=== PATIENT | male | born 1940 | race Caucasian/White ===

== ENCOUNTER → 2024-05-05 | Outpatient (BNVA) | payer MEDICARE, BC, SELFPAY | END | disposition home or self-care (01) | PROVIDERS: PCP Physician Assistant; Referring Provider Physician Assistant; Visit Provider Urology | DX: C61 Malignant neoplasm of prostate (principal); K58.9 Irritable bowel syndrome, unspecified; N32.81 Overactive bladder; R33.9 Retention of urine, unspecified; N13.30 Unspecified hydronephrosis; I10 Essential (primary) hypertension; E78.00 Pure hypercholesterolemia, unspecified; I48.91 Unspecified atrial fibrillation; Z86.73 Personal history of transient ischemic attack (TIA), and cerebral infarction without residual deficits | CPT/HCPCS: 51702; 81003; 99212; 99213; G0463 ==

== ENCOUNTER → 2024-05-08 | Outpatient (BNVA) | payer MEDICARE, BC, SELFPAY | END | disposition home or self-care (01) | PROVIDERS: PCP Family Medicine; Referring Provider Family Medicine; Visit Provider Urology | DX: C61 Malignant neoplasm of prostate (principal); N32.81 Overactive bladder; Z87.891 Personal history of nicotine dependence; I10 Essential (primary) hypertension; E78.00 Pure hypercholesterolemia, unspecified; I48.91 Unspecified atrial fibrillation; E03.9 Hypothyroidism, unspecified | CPT/HCPCS: 51702; 81003; 96372; 99212; J1580; A9270; G0463 ==

== ENCOUNTER 2024-05-13 08:22 | Emergency (ER) | payer MEDICARE, BC, SELFPAY ==
[2024-05-13 08:27] VITALS: BP 126/72; PULSE 88; RESP 19; TEMP 37; O2SAT 98; BMI 20.3
--- NOTE | 2024-05-13 08:56 | EDNOTE_ITS ---
ED Male Genitalurinary RME/HPI General Chief complaint: General Adult/Misc Complain Stated complaint: CATHETER CLOGGED Time Seen by Provider: 05/13/24 08:23 Arrival date/time: 05/13/24 08:22 RME / HPI RME / HPI Narrative: 83 year old male with history of prostate cancer, s/p brachytherapy treatment 15 years ago in remission, hypertension, AFib, hypothyroidism presents to the ED for complaint of problems with sen catheter. States he has had a small amount of urine in sen bag in the last 24 hours and believes it is clogged. Reportedly had a sen catheter inserted for the first time ~ 10 days ago while here for hematuria. States the sen continuously leaked during that time and pulled it out himself. States he followed up with his urologist Dr. Jean Baptiste 5 days ago Saturday and had the sen catheter reinserted. Denies fevers, chills, sweats, chest pain, shortness of breath, abdominal pain, n/v. Related Data Home Medications ?Medication ?Instructions ?Recorded ?Confirmed rosuvastatin 20 mg tablet (Crestor) 20 mg PO HS #0 tabs 03/31/16 05/08/24 amlodipine 5 mg tablet 5 mg PO PRN PRN Blood Pressure 09/02/18 05/08/24 levothyroxine 88 mcg tablet 88 mcg PO QDAY 09/02/18 05/08/24 apixaban 5 mg tablet (Eliquis) 2.5 mg PO BID 11/11/23 05/08/24 clopidogrel 75 mg tablet 75 mg PO DAILY 03/13/24 05/08/24 dicyclomine 10 mg capsule 10 mg PO BID 03/13/24 05/08/24 Previous Rx's ?Medication ?Instructions ?Recorded levofloxacin 500 mg tablet 500 mg PO QDAY 3 days #3 tabs 05/13/24 Allergies Allergy/AdvReac Type Severity Reaction Status Date / Time No Known Allergies Allergy Verified 05/08/24 08:20 Review of Systems Review of Systems Narrative Review of Systems: GEN: No fever, no chills, no weight loss EYES: No discharge, no visual changes, no pain HEENT: No ear pain, no congestion, no sore throat PULM: No shortness of breath, no cough, no congestion CV: No chest pain, no dyspnea on exertion, no palpitations GI: No nausea, no vomiting, no diarrhea, no pain, no constipation : +clogged sen catheter. No frequency, no urgency and no dysuria MUSC/SKEL No joint pain, no back pain SKIN: No rash PSYCH: No hallucinations, no depression HEME/LYMPH: No easy bleeding or bruising tendencies NEURO: No weakness, no headache Past Medical History Past Medical History NEUROLOGIC: Positive Neurological Disorders and Transient Ischemic Attacks (TIA) CARDIAC: Positive Cardiac Disorders, Atrial Fibrillation, Hypercholesterolemia, Valvular Heart Disease and Hypertension GASTROINTESTINAL: Positive Gastrointestinal Disorders (persistent diarrhea) GENITOURINARY: Positive Genitourinary Disorders (urinary frequency) and Prostate Cancer MUSCULOSKELETAL: Positive Musculoskeletal Disorders, Arthritis and Carpal Tunnel Syndrome (right) ENT: Positive Cataracts (right) ENDOCRINE: Positive Endocrine Disorders and Hypothyroidism OTHER HISTORY: Positive Radiation Therapy (radiation seeds placed for prostate CA 2009), Chicken Pox, Measles, Cancer and Prostate Cancer Surgical History SURGICAL: Positive Cardiac Surgery, Valve Replacement, Transurethral Resection (prostatectomy) and Arthroscopy (right knee) Social History SMOKING STATUS: Never smoker ED Exam Narrative Physical exam: GENERAL APPEARANCE: Well hydrated, well nourished, in no acute distress. VITALS: All vitals were reviewed and the pulse ox is 100% on room air which is normal according to my interpretation. HEENT: Normocephalic, atramatic, EOMI, EACs are patent. There is no bulge or retraction. Throat without erythema or exudate. Moist oromucosa. No jaundice NECK: Supple, no JVD or bruits. CARDIOVASCULAR: Heart regular without S3-S4 or murmur. No rubs or gallops. LUNGS/CHEST: Clear to auscultation bilaterally. No rales, rhonchi, or wheezing. Normal inspection. ABDOMEN: Soft, nontender, with normal bowel sounds. No pulsatile masses. No rebound, rigidity, or guarding. No incarcerated hernia. Normal inspection and palpation. EXTREMITIES: Normal inspection and palpation. No edema, clubbing, or cyanosis. Intact CSM SKIN: Warm and dry without rashes. Normal inspection. MUSCULOSKELETAL: Normal inspection. No gross deformity, full ROM all extremities NEURO: Alert and oriented x3. Cranial nerves II through XII grossly intact. There are no other motor or sensory deficits noted. PSYCHIATRIC: Normal mood and affect. No psychosis Course Quality Measures none Orders Category Date Time Status Sen [Urinary Catheter, Remove] ONCE Care 05/13/24 09:09 Active Sen [Urinary Catheter] QS Care 05/13/24 09:09 Active CBC Stat Lab 05/13/24 09:57 Completed Comprehensive Metabolic Panel Stat Lab 05/13/24 09:57 Completed Partial Thromboplastin Time Stat Lab 05/13/24 09:57 Completed Prothrombin Time with INR Stat Lab 05/13/24 09:57 Completed UA, C/S IF [Urinalysis, C/S if Indicated] Stat Lab 05/13/24 09:33 Completed Urine Culture Stat Lab 05/13/24 09:33 Received Vital Signs Vital signs: Vital Signs Temperature 98.6 F 05/13/24 08:27 Pulse Rate 88 05/13/24 08:27 Respiratory Rate 19 05/13/24 08:27 Blood Pressure 126/72 05/13/24 08:27 Pulse Oximetry (%) 98 05/13/24 08:27 Oxygen Delivery Method Room Air 05/13/24 08:27 Urogenital - Male MDM Narrative MDM Narrative:: IChanel am scribing for and in the presence of Dr. De Luna. The old Esn which is a clot was removed. The brand-new Sen was inserted by the nursing staff and we got about 800 mL of urine coming out. Patient is happy and smiling he said that he is feeling much better and wanted to go home. CBC unremarkable. CMP unremarkable. UA positive for some bacteria. PT and PTT are negative. Patient data External records reviewed:: [facility] previous records (I reviewed outpatient urology clinic notes by Dr. Jean Baptiste on 05/05/2024) Clinical information provided by:: patient Social determinants that could affect healthcare access:: none Patient has the following chronic illnesses:: prostate cancer, s/p brachytherapy treatment 15 years ago in remission, hypertension, AFib, hypothyroidism How is presenting disease/condition affected by chronic disease/condition?: exacerbated by Evaluation data The following diagnostics were reviewed and interpreted by me:: lab results Lab and/or radiology exams considered but not ordered:: None Interpretation Summary: As noted above Medications / Prescriptions Medications or Prescriptions considered but not ordered:: None Medication administrations:: NOne Consultations Consultation(s) initiated? (list below): No Diagnosis Urogenital Male Differential Diagnosis: urinary tract infection, prostatitis, acute retention of urine and other (Sen catheter malfunction) Most likely diagnosis given after review of the tests above:: UTI Encounter for sen replacement Admission Indicated Admission indicated?: not indicated Admission Request Was there a request for admission?: No Disposition Plan Disposition Plan: Discharge Discharge Attestation Discharge Attestation: The patient and all family members were given an opportunity to ask questions and understood the discharge instructions. Discharge instructions specifically effects, indications for sooner follow up or return to the emergency department, and the expected course of current diagnosis. Patient condition: Stable Discharge Plan Plan Patient Disposition: HOME (Self Care) Disposition Comment: Stable to go home Prescriptions/Referrals Prescriptions/Med Rec: New levofloxacin 500 mg tablet 500 mg PO QDAY 3 Days Qty: 3 0RF No Action rosuvastatin [Crestor] 20 MG tablet 20 mg PO HS Qty: 0 amlodipine 5 mg Tablet 5 mg PO PRN PRN (Reason: Blood Pressure) Rx Instructions: If BP is over 140 levothyroxine 88 mcg Tablet 88 mcg PO QDAY clopidogrel 75 mg tablet 75 mg PO DAILY dicyclomine 10 mg capsule 10 mg PO BID Patient Comments: take 1 capsule by mouth twice a day Eliquis 5 mg tablet 2.5 mg PO BID Referrals: Lisa Liu MD [Primary Care Provider] - In 1 week Problem List Clinical Impression: Encounter for Sen catheter replacement, Urinary tract infection in male Patient/Caregiver Discharge Instructions Education Materials: Urinary Tract Infections in Men, ED Sen Catheter, Care Additional Instructions: Antibiotic for urinary tract infection at this prescribed. See your doctor for recheck in 3 days. Return to nearest emergency department if condition worsens or if new symptoms develop. Return to ER [facility] if Sen stopped working. Print Language: Panamanian Stand Alone Forms: Elena Award Info., Patient Portal Info Letter
[2024-05-13 09:44] LABS: Collection Type, Urine Clean Catch
[2024-05-13 09:49] LABS: Amorphous Crystals,Urine Present (Absent); Bacteria,Urine Rare; Bilirubin,Urine Negative (Negative); Blood,Urine 3+ (Negative); Color,Urine Yellow (Lt Yel-Yel); Glucose, Urine Negative (Negative); Ketones,Urine Negative (Negative); Leukocyte Esterase,Urine Positive (Negative); Nitrite,Urine Negative (Negative); Protein,Urine 1+ (Neg - Trace); RBC,Urine 55 /hpf (0-3); Squamous Epithelial Cell,Urine < 1 /hpf (0-5); Urobilinogen,Urine Negative mg/dL (0.0-1.0); WBC,Urine 17 /hpf (0-5)
[2024-05-13 10:05] LABS: Basophils % (Auto) 1 % (0-2.5); Eosinophils # (Auto) 0.1 Thou/mm3 (0.0-0.5); Eosinophils % (Auto) 1 % (0-10); Hematocrit 32.3 % (41.0-53.0); Hemoglobin 10.7 g/dL (13.5-16.0); Immature Granulocytes % (Auto) 0 % (0-0); Immature Granulocytes Auto 0.02 Thou/mm3 (0.00-0.00); Lymphocytes # (Auto) 0.8 Thou/mm3 (1.0-4.8); Lymphocytes % (Auto) 9 % (10-50); Mean Corpuscular HGB Conc 33.1 g/dl (31.0-37.0); Mean Corpuscular Hemoglobin 29.2 pg (25.0-35.0); Mean Corpuscular Volume 88 fL (80-100); Monocytes % (Auto) 12 % (0-12); Neutrophils # (Auto) 6.5 Thou/mm3 (1.8-7.7); Neutrophils % (Auto) 77 % (37-80); Nucleated Red Blood Cell % 0 /100 WBC (0); Platelet Count 176 Thou/mm3 (140-440); Red Blood Count 3.67 Miln/mm3 (4.50-5.90); White Blood Count 8.3 Thou/mm3 (3.8-10.6)
[2024-05-13 10:06] LABS: Clarity,Urine Hazy (Clear/Hazy); Culture Indicated,Urine Yes
[2024-05-13 10:25] LABS: Alanine Aminotransferase 15 U/L (10-49); Albumin/Globulin Ratio 1.7 (1.2-2.2); Alkaline Phosphatase 83 U/L (46-116); Anion Gap 6 (7-16); Aspartate Amino Transferase 25 U/L (0-34); BUN/Creatinine Ratio 18 Ratio (12-20); Bilirubin,Total 1.1 mg/dL (0.3-1.2); Blood Urea Nitrogen 24 mg/dL (9-23); Calcium 9.1 mg/dL (8.3-10.6); Calcium (Corrected) 9.1 mg/dL (8.5-10.1); Carbon Dioxide 27.2 mMol/L (20.0-31.0); Chloride 105 mMol/L (98-107); Creatinine (Component) 1.3 mg/dL (0.6-1.3); Globulin 2.4 gm/dL (2.3-3.5); Glucose 94 mg/dL (74-106); Osmolality,Calculated 279 (275-295); Potassium 3.8 mMol/L (3.4-5.1); Sodium 138 mMol/L (136-145); Total Protein 6.4 gm/dL (5.7-8.2); eGFR 54 See Note
[2024-05-13 10:29] LABS: Partial Thromboplastin Time 27.3 Seconds (22.0-36.0); Prothrombin Time 11.1 Seconds (9.0-12.2)
[2024-05-13 11:32] VITALS: BP 130/68; PULSE 74; RESP 16; TEMP 36.4; O2SAT 100
[2024-05-13 12:41] VITALS: BP 135/79; PULSE 73; RESP 16; TEMP 36.4; O2SAT 100
== END 2024-05-13 12:41 | disposition home or self-care (01) ==
PROVIDERS: Nurse Practitioner Primary Care; Emergency Provider Emergency Medicine; PCP Family Medicine
DX: Z46.6 Encounter for fitting and adjustment of urinary device (principal); N39.0 Urinary tract infection, site not specified
CPT/HCPCS: 51702; 36415; 80053; 81001; 85025; 85610; 85730; 87086; 99283

== ENCOUNTER 2024-05-14 12:52 | Emergency (ER) | payer MEDICARE, BC, SELFPAY ==
--- NOTE | 2024-05-14 13:08 | PC.NURSE ---
Pt. got triaged and asked if it was going to be a long wait. This nurse states that there are quite a few people that signed in so that he might be waiting for a while Pt. states he is going to leave. I advise pt. to wait for a bit but pt. states he does not want to wait. Pt. is A/O x 4 and ambulates with steady gait. Has not been seen by provider.
== END 2024-05-14 13:12 | disposition left against medical advice (07) ==
LOC: SERX 13:19
PROVIDERS: Emergency Provider Emergency Medicine
DX: Z53.21 Procedure and treatment not carried out due to patient leaving prior to being seen by health care provider (principal)

== ENCOUNTER → 2024-05-26 | Outpatient (BNVA) | payer MEDICARE, BC, SELFPAY | END | disposition home or self-care (01) | PROVIDERS: PCP Physician Assistant; Referring Provider Physician Assistant; Visit Provider Urology | DX: N32.89 Other specified disorders of bladder (principal); N21.0 Calculus in bladder; C61 Malignant neoplasm of prostate; I10 Essential (primary) hypertension; E78.00 Pure hypercholesterolemia, unspecified; Z86.73 Personal history of transient ischemic attack (TIA), and cerebral infarction without residual deficits; I48.91 Unspecified atrial fibrillation; E03.9 Hypothyroidism, unspecified | CPT/HCPCS: 52000; 81003; 96372; 99212; A4217; A4649; C1894; J3260; A9270; G0463 ==

== ENCOUNTER → 2024-06-10 | Outpatient (CLI) | payer MEDICARE, BC, SELFPAY ==
--- NOTE | 2024-06-10 15:30 | XR_ITS ---
Examination: Retroperitoneal ultrasound, complete Technique: Multiple high resolution grayscale images of the retroperitoneum obtained, including kidneys and bladder. Exam date and time:June 10, 2024 1534 hours INDICATIONS: CT examination March 13, 2024 bilateral hydronephrosis FINDINGS: Right kidney 13.2 x 9.3 x 9.0 cm renal cortex 1.4 cm Moderate to advanced right hydronephrosis Left kidney 12.5 x 7.6 x 8.1 cm cortex 2.2 cm Moderate to advanced right hydronephrosis Moderate bilateral renal parenchymal scar formation Urinary bladder contracted around a Connolly catheter Significant prostatomegaly 5.2 x 4.1 x 5.5 cm volume 60.9 cc no prostate nodules IMPRESSION: Marked worsening of bilateral hydronephrosis
--- NOTE | 2024-06-18 10:40 | ESOP_ITS ---
RE: SANTIAGO CABRERA : 1940 DATE OF OPERATION: 06/16/2024 CHIEF COMPLAINT: * Prostate cancer status post brachytherapy treatment done by urologist in [place] 15 years ago. * Urinary retention with bilateral hydronephrosis status post placement of Connolly catheter. * The patient had the Connolly catheter with intact balloon and had some blood in the urine. The patient is also on blood thinning medication. Today, he had ultrasound of the kidneys done on 06/10/2024. It is reviewed by me. I called Mr. Cabrera at his home. I discussed the report of the ultrasound and CAT scan. His hydronephrosis is still not decompressed with the indwelling Connolly catheter. I discussed with him placement of bilateral percutaneous nephrostomies and I have contacted Dr. Simeon in radiology department. He will be scheduled for the same. Subsequent to that, I have scheduled him for cystoscopic examination and placement of bilateral ureteral stent if his ureteral orifices are visible endoscopically. His BUN is 14, creatinine is 0.67, GFR is 104. I do not have the report of BUN, creatinine or GFR today. After he had placement of bilateral percutaneous nephrostomy, we will repeat his CMP. The patient will be notified for his percutaneous nephrostomy placement date. DT: 16:01:18 TT: 20:35:00 Ref: [id number] - TID: [id number]
== END | disposition home or self-care (01) ==
LOC: CDIM 15:20
PROVIDERS: Referring Provider Urology; Visit Provider Urology
DX: N13.30 Unspecified hydronephrosis (principal)
CPT/HCPCS: 76770

== ENCOUNTER 2024-08-01 15:25 | Inpatient (IN) | payer MEDICARE, BC, SELFPAY ==
[2024-08-01] VITALS (94 sets, daily range): BP systolic 57–171; BP diastolic 40–128; PULSE 70–148; RESP 15–79; TEMP 36.5–37.4; O2SAT 51–100; BMI 19.5
--- NOTE | 2024-08-01 15:28 | PC.NURSE ---
PT BROUGHT IN BY EMS WITH C/O ALTERED MENTAL STATUS X 1 HOUR, PER EMS PT HAD PACEMAKER PLACED A FEW DAYS AGO. PER EMS PT GCS OF 3. PER EMS PT 02 SATS FOR THEM WERE 59% RA. ROOM AIR SATS AT THIS TIME 79%. PT PLACED ON OXYMASK 15L. PT PLACED ON CC MONITOR, LEFT FACIAL DROOP NOTED. PT NOT RESPONDING TO STERNAL RUB. PT NOT MOVING EXTREMITIES. PT IS BREATHING ON HIS OWN AT THIS TIME, DR WINTERS AT BEDSIDE.
--- NOTE | 2024-08-01 15:33 | PC.NURSE ---
PT TO CT WITH RN AT BEDSIDE
--- NOTE | 2024-08-01 15:34 | EKG_ITS ---
[facility] Test Date: 2024-08-01 Pat Name: SANTIAGO HEADLEY Department: Room: - Gender: Male [employer]: : 1940 Requested By: aDnielito Marie Order Number: [id number] Reading MD: Danielito Marie Measurements Intervals [place] Rate: 112 P: KS: QRS: -75 QRSD: 128 T: 91 QT: 353 QTc: 484 Interpretive Statements ATRIAL FIBRILLATION WITH RAPID VENTRICULAR RESPONSE RIGHT BUNDLE BRANCH BLOCK [120+ ms QRS DURATION, UPRIGHT V1, 40+ ms S IN I/aVL/V4/V5/V6] LEFT ANTERIOR FASCICULAR BLOCK [QRS AXIS <= -45, QR IN I, RS IN II] MARKED ST ELEVATION, CONSIDER ANTERIOR INJURY [MARKED ST ELEVATION W/O NORMALLY INFLECTED T WAVE IN V2-V5] ACUTE NV No previous ECG available for comparison /store/S0/[id number]/[id number].pdf
--- NOTE | 2024-08-01 15:34 | XR_ITS ---
Examination: CT brain head without contrast. 2-D sagittal coronal reconstructions Date and time of exam:August 01, 2024 1539 hrs. Indications: Stroke alert, onset facial droop beginning one hour ago focal neurologic deficit CTDI: vol (mGy):55.2 DLP: (mGycm):1217 Technique: Multiple CT axial sections of the brain have been obtained, 5 mm slice thickness. Contrast has not been administered. 2-D sagittal, coronal reconstructions have been obtained Low dose protocols were performed. One or more of the following dose reduction techniques were used; automated exposure control, adjustment of the mA and/or KV according to patient size, use of iterative reconstruction technique. Findings: No significant ventricular enlargement. 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 No mass effect or midline shift Basal cisterns are not remarkable. Fourth ventricle is midline. Cranial vault intact. Air densities in posterior parietal sulci on the left which may relate to bolus infusion Impression: Negative for acute hemorrhage, mass effect or midline shift
[2024-08-01 15:44] LABS: Basophils # (Auto) 0.1 Thou/mm3 (0.0-0.2); Basophils % (Auto) 0 % (0-2.5); Eosinophils % (Auto) 0 % (0-10); Hematocrit 32.4 % (41.0-53.0); Hemoglobin 10.6 g/dL (13.5-16.0); Immature Granulocytes % (Auto) 1 % (0-0); Immature Granulocytes Auto 0.59 Thou/mm3 (0.00-0.00); Lymphocytes # (Auto) 1.1 Thou/mm3 (1.0-4.8); Lymphocytes % (Auto) 3 % (10-50); Mean Corpuscular HGB Conc 32.7 g/dl (31.0-37.0); Mean Corpuscular Hemoglobin 28.7 pg (25.0-35.0); Mean Corpuscular Volume 88 fL (80-100); Monocytes # (Auto) 2.6 Thou/mm3 (0.0-0.8); Monocytes % (Auto) 6 % (0-12); Neutrophils # (Auto) 37.1 Thou/mm3 (1.8-7.7); Neutrophils % (Auto) 90 % (37-80); Nucleated Red Blood Cell % 0 /100 WBC (0); Platelet Count 320 Thou/mm3 (140-440); Red Blood Count 3.69 Miln/mm3 (4.50-5.90)
[2024-08-01 15:46] LABS: White Blood Count 41.4 Thou/mm3 (3.8-10.6)
--- NOTE | 2024-08-01 15:51 | PC.NURSE ---
PT BACK FROM CT.
--- NOTE | 2024-08-01 15:55 | PC.NURSE ---
Pt. here from home to room 3, pt. had a pacemaker put in Jul 23 per son Abilio, pt. has bilateral nephrostomy tubes placed in [facility] on Jul 25, pt. had a ablation on the , pt. has a sen draining to the a leg bag, states she does not know how long pt. has had a sen cath. states the sen has been there a long time. Pt. has a swollen right ankle with bruising. Dr. Jet Gil on tele monitor talking to Dr. Marie, Dr. Jet Gil states to keep pt. in trendelenburg.
[2024-08-01 15:57] LABS: INR 1.2 (0.9-1.3); Partial Thromboplastin Time 29.1 Seconds (22.0-36.0); Prothrombin Time 13.1 Seconds (9.0-12.2)
[2024-08-01 16:09] LABS: Path Review Blood Smear Sent to Pathologist
--- NOTE | 2024-08-01 16:13 | PRELIM_ITS ---
CT scan of the head without intravenous contrast (axial sections with sagittal and coronal reformats) August 01, 2024 at 1539 hours Clinical history: Focal neuro deficit, stroke suspected , left side weakness. Comparison: None. Findings: There is no evidence of intracranial hemorrhage, mass effect or midline shift. No definitive wedge-shaped acute infarcts are detected. An old lacunar infarct is noted in the head of the right caudate nucleus. There are prominent extraaxial CSF spaces along the frontal convexities bilaterally, likely related to frontal lobe volume loss. There are air loculi in the cortical branches of the left posterior cerebral artery and right anterior cerebral artery, which may be related to bolus infusion. There are periventricular white matter hypodensities, compatible with chronic small vessel ischemia. There is moderate volume loss. There is atheromatous calcification of the intracranial arteries. The calvarium is unremarkable. The mastoid air cells and the visualized paranasal sinuses are clear. Impression: 1. No evidence of acute infarct, intracranial hemorrhage, mass effect or midline shift. If there are persistent clinical symptoms or additional clinical concerns, consider MRI. 2. Chronic small vessel ischemia, old lacunar infarct and volume loss as described. 3. Other findings as described above. Discussion Details: Results verbally communicated to : Dr. Marie at 04:07 PM 08/01/2024 Report Electronically Signed By: Prerna Sandhu 08/01/2024 4:11:35 PM [EST]
--- NOTE | 2024-08-01 16:38 | XR_ITS ---
Examination: AP chest single view Technique one AP portable upright chest single view Indications: Stroke alert, shortness of breath today Findings: Left apical lateral pneumothorax, estimated 30% No shift of the mediastinum or trachea to the right Heart failure pattern with enlarged cardiac contour prominent vascular congestion perihilar basilar edema Small to moderate bilateral pleural effusions Cardiac leads satisfactory position Impression: Left apical lateral pneumothorax, estimated 30%
--- NOTE | 2024-08-01 16:39 | PD.EDADULT ---
ED General RME/HPI General Chief complaint: Altered Mental Status Stated complaint: AMS Time Seen by Provider: 08/01/24 15:33 Arrival date/time: 08/01/24 15:25 RME / HPI RME / HPI narrative: 84-year-old male who had a pacemaker placed to days ago at [facility] who is brought in by EMS for sudden onset of altered mental status, nonverbal, not following commands starting 1 hour prior to advisable. Patient offers no history. : Notes he had a pacemaker placed 2 days ago with a of normal state of health until proxy 1 hour prior to arrival. 1530, on arrival STROKE ALERT: AMS, left-sided deficits, left-sided paralysis, left-sided facial droop, left-sided neglect 1610, STROKE ALERT: leukocytosis of 44,000, lactic acid of 3.0. 1650, HEART ALERT: ST elevations on inferior lateral leads, case and EKG was discussed with Dr. Sandy Banda Related Data Home Medications ?Medication ?Instructions ?Recorded ?Confirmed rosuvastatin 20 mg tablet (Crestor) 20 mg PO HS #0 tabs 03/31/16 05/26/24 amlodipine 5 mg tablet 5 mg PO PRN PRN Blood Pressure 09/02/18 05/26/24 levothyroxine 88 mcg tablet 88 mcg PO QDAY 09/02/18 05/26/24 apixaban 5 mg tablet (Eliquis) 2.5 mg PO BID 11/11/23 05/26/24 clopidogrel 75 mg tablet 75 mg PO DAILY 03/13/24 05/26/24 dicyclomine 10 mg capsule 10 mg PO BID 03/13/24 05/26/24 Allergies Allergy/AdvReac Type Severity Reaction Status Date / Time No Known Allergies Allergy Verified 05/26/24 11:44 Review of Systems Review of Systems ROS Unobtainable: unobtainable due to medical condition ED Exam Narrative Physical exam: GENERAL APPEARANCE: Eyes clenched closed, mouth clenched closed, some increased tone to the right upper and right lower extremity, flaccid on the left upper and left lower extremity with a left facial droop HEENT: NC, AT. MMM. EOMI, clear conjunctiva, no sclericterus NECK: Supple without lymphadenopathy. No stiffness or restricted ROM. HEART: Tachycardic, irregular, normal S1/S1, no m/r/g LUNGS: CTAB, moving air well. No crackles or wheezes are heard. ABDOMEN: Soft, nondistended NEUROLOGICAL: Dense left-sided deficit, Babinski positive on left Course Course Course Narrative: Dr. 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 He also had bilateral nephrostomies placed 1 week ago. All of these procedures were done at [facility]. Quality Measures Suspected type of Stroke: Unknown at this time Last known well (date): 08/01/24 Last known well (time): 14:30 Tenecteplase given: Reason(s) TPA not given: Unable to determine eligibility (Head CT shows air emboli/pneumocephaly) not given stroke Orders Category Date Time Status Bedside Blood Glucose NOW Care 08/01/24 15:[address] Screening NOW Care 08/01/24 17:53 Active [place] NOW Care 08/01/24 15:34 Active Continuous Pulse Oximetry NOW Care 08/01/24 15:34 Completed EKG (ED ONLY) *Do not use* NOW Care 08/01/24 15:34 Completed In and Out Catheter NEEDED Care 08/01/24 15:34 Active Insert IV NOW Care 08/01/24 15:34 Active NIH Stroke Scale now Care 08/01/24 15:34 Active NPO NOW Care 08/01/24 15:34 Active Nurse Swallow Screen x1 Care 08/01/24 15:34 Active Consult to Cardiology Stat Cons 08/01/24 16:32 Ordered Consult to Neurology / Tele-Neurology Routine Cons 08/01/24 15:[address] angio chest Stat Exams 08/01/24 17:[address] angio stroke protocol Stat Exams 08/01/24 15:[address] stroke protocol Stat Exams 08/01/24 15:34 Completed EKG (ED Only) Stat Exams 08/01/24 15:34 Draft XR chest 1V portable Stat Exams 08/01/24 16:38 Completed Blood Culture (Lab) Stat Lab 08/01/24 15:30 Received CBC Stat Lab 08/01/24 15:30 Completed Comprehensive Metabolic Panel Stat Lab 08/01/24 15:30 Completed Lactate (Lactic Acid) Stat Lab 08/01/24 15:30 Results Magnesium Stat Lab 08/01/24 15:30 Completed Partial Thromboplastin Time Stat Lab 08/01/24 15:30 [address] Review Blood Smear Stat Lab 08/01/24 15:30 Completed Procalcitonin Stat Lab 08/01/24 15:30 Completed Prothrombin Time with INR Stat Lab 08/01/24 15:30 Completed Troponin I Stat Lab 08/01/24 15:30 Completed Urinalysis Stat Lab 08/01/24 15:34 Ordered Urine Culture Stat Lab 08/01/24 15:34 Ordered Etomidate Inj [Amidate Inj] Med 08/01/24 15:47 Discontinued 20 mg IVP X1 ONE Ondansetron Inj [Zofran Inj] Med 08/01/24 15:34 Active 4 mg IV Q4HR PRN Piper/Tazo 3.375 gm [Zosyn] Med 08/01/24 16:08 Discontinued 3.375 gm in 50 ml IV X1 Rocuronium Inj [Zemuron Inj] Med 08/01/24 15:47 Discontinued 70 mg IVP X1 ONE Vancomycin Inj 1,000 mg Med 08/01/24 16:08 Discontinued Sodium Chloride 0.9% 250 ml [Ns] 250 ml IV X1 Oxygen Delivery NOW RT 08/01/24 15:34 Active Vital Signs Vital signs: Vital Signs Pulse Oximetry (%) 93 L 08/01/24 15:29 Oxygen Flow Rate 15 08/01/24 15:29 [facility] Patient data External records reviewed:: [facility] previous records (No recent visits) Clinical information provided by:: patient and spouse Social determinants that could affect healthcare access:: none Patient has the following chronic illnesses:: Cardiac disease, atrial fibrillation, aortic stenosis How is presenting disease/condition affected by chronic disease/condition?: exacerbated by Evaluation data The following diagnostics were reviewed and interpreted by me:: lab results, radiology exam(s) and EKG tracing(s) Lab and/or radiology exams considered but not ordered:: None Interpretation Summary: As per narrative. Medications Medications considered but not ordered:: As per narrative Medication administrations:: Medication Administration History Ondansetron HCl (Ondansetron Inj 2 Mg/Ml Inj 2 Ml) 4 mg IV Q4HR PRN PRN Reason: NAUSEA OR VOMITING Stop: 08/31/24 15:33 Discontinued Medications Etomidate (Etomidate Inj 2 Mg/Ml Vial 10 Ml) 20 mg IVP X1 ONE Stop: 08/01/24 15:48 Vancomycin HCl 1,000 mg/ (Sodium Chloride) 250 mls @ 150 mls/hr IV X1 ONE Stop: 08/01/24 17:47 Last Admin: 08/01/24 17:42 Dose: 150 mls/hr Documented By: ED Piperacillin/Tazobactam/Dextrose (Zosyn) 3.375 gm in 50 mls @ 100 mls/hr IV X1 ONE Stop: 08/01/24 16:37 Last Infusion: 08/01/24 17:36 Dose: Infused Documented By: Admin: 08/01/24 16:50 Dose: 100 mls/hr Documented By: ED Rocuronium [place] (Rocuronium Inj 10 Mg/Ml Vial 10 Ml) 70 mg IVP X1 ONE Stop: 08/01/24 15:48 Above Consultations Consultation(s) initiated? (list below): Yes Consultation #1 (Physician, Specialty, Details): Teleneurology, stroke activation, please see consultation note Time: 15:30 Consultation #2 (Physician, Specialty, Details): Cardiology, Dr. Sandy Banda, we reviewed the EKG findings and recomm concern for ST elevations, ends heart alert and transfer to [facility] catheterization needed Time: 16:45 Consultation #3 (Physician, Specialty, Details): Cardiology, Dr. Sandy Banda, reviewed consultation with [facility] (Dr. Acevedo) who declines patient for transfer given that he has a normal left heart catheterization January [address] findings on his EKG which could be consistent with a stroke. He is not a candidate for PCI. Dr. Sandy Banda agrees to consult here in the hospital, recommend starting heparin as he was not anticoagulated in the hospital during his pacemaker/ablation procedures and start his first dose of Eliquis this morning. he recommends starting heparin. Time: 18:35 Diagnosis Differential Diagnosis ED Complaint MDM: CVA, ST elevation [place], sepsis Most likely diagnosis given after review of the tests above:: Air emboli, CVA, ST elevation AZ, sepsis Admission Indicated Admission indicated?: indicated Explain why admission is indicated or not indicated:: Workup in progress Admission Request Was there a request for admission?: No Disposition Plan Disposition Plan: other (specify) (Signed out to oncoming provider pending CT of the chest and) Medical Decision Making MDM Narrative MDM Narrative: Mr. Cabrera is very ill who presents as a stroke alert due to dense left-sided deficits who is also concerning for sepsis and an ST elevation AZ. He has had several procedures and is primarily seen at [facility] where most recently he had bilateral nephrostomies placed, cardiac ablation for atrial fibrillation/flutter, and pacemaker placement within the last 2 weeks. Most recent is a cardiac ablation 2 days ago. Today appears to have a complex spectrum of findings where air emboli is seen on his CT being his most objective findings for peripheral air is noted. He does have intra-axial areas frequently on the right hemisphere which is consistent for his neurologic deficits today. He is responsive on the right, he is speaking to his and is protecting his airway. He does note some mild chest pain with EKG that shows ST elevations in the inferior and the lateral leads. He appears to have two-vessel obstruction. Case was discussed at length with teleneurology and with cardiology and I appreciate their assistance in this very complicated and critical case. Per teleneurology as these appear to be primarily air emboli, is recommending Trendelenburg and no thrombolytics. EKG was reviewed with cardiology and does acknowledge that he does have multivessel ST elevations, particular inferior, also anterior lateral, however he appears to have a catheterization that is negative for coronary artery disease. However given his recent procedures done [facility], air emboli seen on head CT, TAVR also done at [facility], recommends heart alert for ST elevations and transfer to [facility] if catheterization is needed as we do not have catheterization capabilities through the weekend. Case was declined by [facility] who recommends medical management, not a candidate for PCI. Differential Diagnosis Differential Diagnosis: CVA, ST elevation [place], sepsis Lab Data 08/01/24 15:30 08/01/24 15:30 Labs: Lab Results 08/01/24 Range/Units 15:30 WBC 41.4 H* (3.8-10.6) Thou/mm3 RBC 3.69 L (4.50-5.90) Miln/mm3 Hgb 10.6 L (13.5-16.0) g/dL Hct 32.4 L (41.0-53.0) % MCV 88 (80-100) fL MCH 28.7 (25.0-35.0) pg MCHC 32.7 (31.0-37.0) g/dl RDW Std Deviation 46.0 H (35.1-43.9) fL Plt Count 320 (140-440) Thou/mm3 Neut % (Auto) 90 H (37-80) % Lymph % (Auto) 3 L (10-50) % [place] % (Auto) 6 (0-12) % Eos % (Auto) 0 (0-10) % Baso % (Auto) 0 (0-2.5) % Neut # (Auto) 37.1 H (1.8-7.7) Thou/mm3 Lymph # (Auto) 1.1 (1.0-4.8) Thou/mm3 [place]ton # (Auto) 2.6 H (0.0-0.8) Thou/mm3 Eos # (Auto) 0.0 (0.0-0.5) Thou/mm3 Baso # (Auto) 0.1 (0.0-0.2) Thou/mm3 Immature Gran # (Auto) 0.59 H (0.00-0.00) Thou/mm3 Absolute Nucleated RBC 0.00 (0.00-0.00) Thou/mm3 Immature Gran % 1 H (0-0) % Nucleated RBC % 0 (0) /100 WBC Smear Path Review Sent to Pathologist PT 13.1 H (9.0-12.2) Seconds INR 1.2 (0.9-1.3) APTT 29.1 (22.0-36.0) Seconds Sodium 134 L (136-145) mMol/L Potassium 4.1 (3.4-5.1) mMol/L Chloride 99 (98-107) mMol/L Carbon Dioxide 24.0 (20.0-31.0) mMol/L Anion Gap 11 (7-16) BUN 31 H (9-23) mg/dL Creatinine 1.4 H (0.6-1.3) mg/dL Estim Creat Clear Calc Not Performed. eGFR 49 L (60 - ) See Note BUN/Creatinine Ratio 22 H (12-20) Ratio Glucose 138 H (74-106) mg/dL Calculated Osmolality 276 (275-295) Lactic Acid 3.0 H (0.4-2.0) mMol/L Calcium 8.8 (8.3-10.6) mg/dL Corrected Calcium 9.1 (8.5-10.1) mg/dL Magnesium 1.9 (1.6-2.6) mg/dL Total Bilirubin 1.2 (0.3-1.2) mg/dL AST 22 (0-34) U/L ALT 11 (10-49) U/L Alkaline Phosphatase 165 H (46-116) U/L Troponin I 0.416 H* (0.0-0.045) ng/mL Total Protein 6.6 (5.7-8.2) gm/dL Albumin 3.6 (3.4-4.8) gm/dL Globulin 3.0 (2.3-3.5) gm/dL Albumin/Globulin Ratio 1.2 (1.2-2.2) Procalcitonin 1.23 H (0.0-0.49) ng/ml Critical Care Time Critical Care Time Critical Care Time: Yes Total Critical Care Time (min.): 90 Attestation: Excluding billable procedures for the rapid response, analysis, management, treatment, deliberation with specialist, and documentation of at the very possible risk of neurologic, cardiovascular, and cardiopulmonary decompensation and/or Discharge Plan Prescriptions/Referrals Prescriptions/Med Rec: No Action rosuvastatin [Crestor] 20 MG tablet 20 mg PO HS Qty: 0 amlodipine 5 mg Tablet 5 mg PO PRN PRN (Reason: Blood Pressure) Rx Instructions: If BP is over 140 levothyroxine 88 mcg Tablet 88 mcg PO QDAY clopidogrel 75 mg tablet 75 mg PO DAILY dicyclomine 10 mg capsule 10 mg PO BID Patient Comments: take 1 capsule by mouth twice a day Eliquis 5 mg tablet 2.5 mg PO BID Referrals: No Primary/Family,Physician [Primary Care Provider] - In 1 week Problem List Clinical Impression: Acute CVA (cerebrovascular accident), Sepsis, ST elevation (STEMI) myocardial infarction, Pneumothorax Patient/Caregiver Discharge Instructions Print Language: Icelandic
[2024-08-01 16:48] LABS: Alanine Aminotransferase 11 U/L (10-49); Albumin, Serum 3.6 gm/dL (3.4-4.8); Albumin/Globulin Ratio 1.2 (1.2-2.2); Alkaline Phosphatase 165 U/L (46-116); Anion Gap 11 (7-16); Aspartate Amino Transferase 22 U/L (0-34); BUN/Creatinine Ratio 22 Ratio (12-20); Bilirubin,Total 1.2 mg/dL (0.3-1.2); Blood Urea Nitrogen 31 mg/dL (9-23); Calcium 8.8 mg/dL (8.3-10.6); Calcium (Corrected) 9.1 mg/dL (8.5-10.1); Chloride 99 mMol/L (98-107); Creatinine (Component) 1.4 mg/dL (0.6-1.3); Glucose 138 mg/dL (74-106); Magnesium 1.9 mg/dL (1.6-2.6); Osmolality,Calculated 276 (275-295); Potassium 4.1 mMol/L (3.4-5.1); Sodium 134 mMol/L (136-145); Total Protein 6.6 gm/dL (5.7-8.2); eGFR 49 See Note
--- NOTE | 2024-08-01 16:48 | PC.NURSE ---
Heart alert called on pt.
[2024-08-01 16:50] LABS: Troponin I 0.416 ng/mL (0.0-0.045)
[2024-08-01] MEDS: PIPER/TAZO 3.375 GM 3.375 GM/50 ML BAG IV (16:50)
[2024-08-01 17:02] LABS: Procalcitonin 1.23 ng/ml (0.0-0.49)
--- NOTE | 2024-08-01 17:13 | PC.NURSE ---
[facility] contacted, no answer. message left at this time.
--- NOTE | 2024-08-01 17:21 | PC.NURSE ---
[facility] returned call. States they are waiting for the ekg to be faxed over. We will faxed over ekg again.
--- NOTE | 2024-08-01 17:22 | PC.NURSE ---
Pt. talking, GCS 15, strong photonics engineering technician on right hand and weak photonics engineering technician to left hand. Pt. able to raise right leg and raise left leg minimally. Spouse and son Abilio are bedside.
--- NOTE | 2024-08-01 17:22 | PC.NURSE ---
Pt. right nephrostomy tube output is camara yellow, pt. left nephrostomy tube is dark brown in color.
[2024-08-01] MEDS: Vancomycin Inj 1,000 MG in SODIUM CHLORIDE 0.9% 250 ML 250 ML 150 MG IV (17:42)
--- NOTE | 2024-08-01 17:53 | XR_ITS ---
Examination: CTA chest with intravenous contrast 2-D reconstructions 3-D reconstructions, vascular Date and time of exam: August 01, 2024 1006 hrs. Indications: Chest pain shortness of breath today CTDI: vol (mGy) 12.2 DLP: (mGycm) 553 Technique: Multiple axial sections of the thorax have been obtained. 3 mm slice thickness, from below the hemidiaphragms to above the apices of the lungs. Mediastinal and lung density settings have been obtained. 2-D sagittal and coronal reconstructions. 3-D angiographic renderings, 3-D volume renderings, 3D post processing, vascular maximum intensity projections obtained. Contrast administered is 60 cc Isovue-300. Low dose protocols were performed. One or more of the following dose reduction techniques were used; automated exposure control, adjustment of the mA and/or KV according to patient size, use of iterative reconstruction technique. Findings: AP dimension ascending thoracic aorta 3.6 cm Aortic valve replacement No pulmonary artery emboli Mild to moderate enlargement cardiac contour Prominent vascular congestion with septal bilateral pulmonary edema Moderate bilateral pleural effusions with atelectasis in the lower lung zones Left chest tube with minimal 5% left pneumothorax Pericardial effusion up to 10 mm No visualized liver or splenic lesion Cholelithiasis No pancreatic mass Bilateral percutaneous nephrostomies satisfactory position no pneumothorax Impression: Negative for thoracic aortic aneurysm dilatation or dissection Negative for pulmonary artery emboli Moderate CHF Satisfactory expansion left lung
--- NOTE | 2024-08-01 18:18 | PC.NURSE ---
Dr. Banda is bedside talking with pt. and pt.'s spouse, son Abilio.
[2024-08-01 18:59] LABS: Reflex Lactate? Y
--- NOTE | 2024-08-01 19:16 | EDNOTE_ITS ---
Emergency Room Addendum <Celio Lucas - Last Filed: 08/01/24 21:46> Addendum Narrative: 1800 Care assumed from Danielito Jimenez MD (emergency physician). Past medical, surgical, social and family history reviewed. Vitals and home medications reviewed. Results and treatment plan discussed. I will assume the care of the patient at this time and will follow the patient, pending evaluation for STROKE alert, HEART alert and SEPSIS alert. Dr. Banda saw this patient at bedside. Please refer to the emergency department record for history and examination from initial visit. The following addendum documentation note is intended to reflect any pending information, findings, or radiology results not included in the patient?s initial chart. Review of the initial emergency department record by Dr. Marie shows STROKE alert was called at 15:29 and had consult by teleneurology who reported based on the CT these appear to be primarily air emboli and is recommending Trendelenburg and no thrombolytics. Per nurses' notes teleNEURO was called at 15:[address] Marie discussed the case with Dr. Jet Gil. SEPSIS alert was also called at 16:10. Procedures -ED Chest Tube Chest Tube 1: Time Out performed 20:39 Chest Tube Location: left Size of Tube (cm): Chest Tube Prep: Yes betadine prep Local Anesthetic: lidocaine 1% Incision Made With: #10 blade Post Procedure: sutured to skin and sterile dressing applied Tube Drainage: Post Procedure CXR?: Yes Patient Tolerated Procedure: Yes Evaluation data The following diagnostics were reviewed and interpreted by me: radiology exam(s) Interpretation Summary: I personally reviewed the radiology data and agree with the radiologist's interpretation. Examination: AP chest single view Technique one AP portable upright chest single view Indications: Stroke alert, shortness of breath today Findings: Left apical lateral pneumothorax, estimated 30% No shift of the mediastinum or trachea to the right Heart failure pattern with enlarged cardiac contour prominent vascular congestion perihilar basilar edema Small to moderate bilateral pleural effusions Cardiac leads satisfactory position Impression: Left apical lateral pneumothorax, estimated 30% Dictated By: Luis E Thompson MD Critical Care Time Critical Care Time Critical Care Time: Yes Total Critical Care Time (min.): 45 Attestation: The high probability of sudden, clinically significant deterioration in the patient?s condition required the highest level of my preparedness to intervene urgently. ? The services I provided to this patient were to treat and/or prevent clinically significant deterioration. Services included the following: chart data review, reviewing nursing notes and/or old charts, documentation time, loss prevention consultant collaboration regarding findings and treatment options, medication orders and management, direct patient care, vital sign assessments and ordering, interpreting and reviewing diagnostic studies and lab tests. ? Aggregate critical care time includes only time during which I was engaged in work directly related to the patient?s care, as described above, whether at bedside or elsewhere in the Emergency Department. It did not include time spent performing other reported procedures or the services of residents, students, nurses or physician assistants. <Marcelina Bales MD - Last Filed: 08/02/24 06:25> Addendum Narrative: 1800 Care assumed from Danielito Jimenez MD (emergency physician). Past medical, surgical, social and family history reviewed. Vitals and home medications reviewed. Results and treatment plan discussed. I will assume the care of the patient at this time and will follow the patient, pending evaluation for STROKE alert, HEART alert and SEPSIS alert. Dr. Banda saw this patient at bedside. Please refer to the emergency department record for history and examination from initial visit. The following addendum documentation note is intended to reflect any pending information, findings, or radiology results not included in the patient?s initial chart. Review of the initial emergency department record by Dr. Marie shows STROKE alert was called at 15:29 and had consult by teleneurology who reported based on the CT these appear to be primarily air emboli and is recommending Trendelenburg and no thrombolytics. Per nurses' notes teleNEURO was called at 15:[address] Marie discussed the case with Dr. Jet Gil. SEPSIS alert was also called at 16:10. Chest tube was placed by the resident physician, Dr. Savanna Ch. Patient is awake, talking in full sentences, and is answering questions. There is no facial droop. + left-sided weakness noted. Lungs with rhonchi bilaterally. Patient's blood pressure is 90 systolically. After reviewing the chart, the patient is septic with a likely source of multiple existing nephrostomy tube. Repeat CXR shows worsening pneumonia. At 1530, patient had a WBC count of 41k. Patient placed in trendelenburg. Patient had 700mL IVF prior to getting the repeat CXR that was done at 2048: Resolved PTX, +CHF 2210: Patient at CT. Due to being a sepsis alert, he was given 2.5L of IVF. If he remains hypotensive, will start vasopressors. 3: Patient is back from CT. 7: Troponin is now 2.174. Patient is becoming more altered. Dr. Banda, butcher apprentice is now on the phone with Dr. Ch and Ana. After having an extensive conversation with him, he requests Lasix and starting Heparin drip. Feels that the patient's CXR worsened due to the fluids he received. 2349: Dr. Ch spoke with the patient's son [id number], who discussed at length with him regarding the patient's condition. He gave verbal consent to intubate the patient if needed. Patient started on Levophed. 0025: CT abdomen pelvis as below. On exam, patient has fullness at the right perianal extending to the medial area of the scrotum with erythema, but no crepitus, nontender, no discharge. There is penile discharge. Need to consult with [facility] and/or urology for postop complication and postop infection. Spoke with [facility], who declined the patient for transfer due to not having urology until Saturday. 0157: Spoke with [facility]'s transfer center, states they will call me back regarding acceptance. 0500: Dr. Ch, re-evaluation of patient. He continues to be on low dose Levophed 0.35, BP 120/80, O2 98% on 6L, HR 100s. Mentation has been waxing and waning, patient is oriented to self and birthdate. He has a right-deviated gaze and continues to have left-sided upper and lower extremity weakness. V/S: BP- 120/70, HR: 101, O2: 96% on 6L/NC. Patient is able to answer questions, is not mottled. There is more redness to the right scrotal area, no crepitus, and it is not black. Patient is on 0/3mcg Levophed. WBC significantly uptrending at 55k, due to concern for possible source extensive perineal air-containing soft tissue infections patient needs Urology surgical services for source control. 0557: Cinthya Singleton, urologist from [facility] states they do not feel this is a urology problem. Request us to consult with our general surgeon. States we can callback if we need to further consult with them. 0606: Care signed out to Dr. Marie (emergency physician). Past medical, surgical, social and family history reviewed. Vitals and home medications reviewed. Results and treatment plan discussed. They will assume the care of the patient at this time and will follow the patient, pending callback from [facility] for transfer. Evaluation data The following diagnostics were reviewed and interpreted by me: radiology exam(s) Interpretation Summary: I personally reviewed the radiology data and agree with the radiologist's interpretation. AP chest single view Findings: Left apical lateral pneumothorax, estimated 30% No shift of the mediastinum or trachea to the right Heart failure pattern with enlarged cardiac contour prominent vascular congestion perihilar basilar edema Small to moderate bilateral pleural effusions Cardiac leads satisfactory position Impression: Left apical lateral pneumothorax, estimated 30% Dictated By: Luis E Thompson MD Examination: AP chest single view Findings: Interval insertion left chest tube Satisfactory expansion left lung Heart failure pattern again noted Impression: Interval insertion left chest tube with reexpansion left lung Dictated By: Luis E Thompson MD Signed By: <Electronically signed by Luis E Thompson MD in OV> 08/01/24 6330 CTA chest with intravenous contrast Findings: AP dimension ascending thoracic aorta 3.6 cm Aortic valve replacement No pulmonary artery emboli Mild to moderate enlargement cardiac contour Prominent vascular congestion with septal bilateral pulmonary edema Moderate bilateral pleural effusions with atelectasis in the lower lung zones Left chest tube with minimal 5% left pneumothorax Pericardial effusion up to 10 mm No visualized liver or splenic lesion Cholelithiasis No pancreatic mass Bilateral percutaneous nephrostomies satisfactory position no pneumothorax Impression: Negative for thoracic aortic aneurysm dilatation or dissection Negative for pulmonary artery emboli Moderate CHF Satisfactory expansion left lung Dictated By: Luis E Thompson MD Signed By: <Electronically signed by Luis E Thompson MD in OV> 08/01/24 0765 Examination: CT abdomen with intravenous contrast Findings: No focal liver lesions Gallstones No pancreatic or adrenal mass Bilateral percutaneous nephrostomies with no hydronephrosis Large amounts of stool in the rectosigmoid Abdominal aortic calcification no aneurysmal dilatation Prominent rectal wall thickening with marked inflammatory change surrounding the rectum Prostate radiation seeds Marked urinary bladder wall thickening, urinary bladder catheter Extensive perineal air-containing soft tissue infection that extends posteriorly to the posterior skin surface and anteriorly into the scrotum including into the penis No fluid-filled drainable abscess Impression: Cystitis pattern Very marked rectal wall thickening with prominent perirectal inflammatory change, severe proctitis pattern, rectal tumor not excluded Extensive perineal air-containing soft tissue infections as above Air in the common femoral veins, clinical correlation advised Dictated By: Luis E Thompson MD Signed By: <Electronically signed by Luis E Thompson MD in OV> 08/02/24 0003 Critical Care Time Critical Care Time Critical Care Time: Yes Total Critical Care Time (min.): 90 Attestation: The high probability of sudden, clinically significant deterioration in the patient?s condition required the highest level of my preparedness to intervene urgently. ? The services I provided to this patient were to treat and/or prevent clinically significant deterioration. Services included the following: chart data review, reviewing nursing notes and/or old charts, documentation time, loss prevention consultant collaboration regarding findings and treatment options, medication orders and management, direct patient care, vital sign assessments and ordering, interpreting and reviewing diagnostic studies and lab tests. ? Aggregate critical care time includes only time during which I was engaged in work directly related to the patient?s care, as described above, whether at bedside or elsewhere in the Emergency Department. It did not include time spent performing other reported procedures or the services of residents, students, nurses or physician assistants. <Lesley Judge - Last Filed: 08/02/24 06:08> Addendum Narrative: 1800 Care assumed from Danielito Jimenez MD (emergency physician). Past medical, surgical, social and family history reviewed. Vitals and home medications reviewed. Results and treatment plan discussed. I will assume the care of the patient at this time and will follow the patient, pending evaluation for STROKE alert, HEART alert and SEPSIS alert. Dr. Banda saw this patient at bedside. Please refer to the emergency department record for history and examination from initial visit. The following addendum documentation note is intended to reflect any pending information, findings, or radiology results not included in the patient?s initial chart. Review of the initial emergency department record by Dr. Marie shows STROKE alert was called at 15:29 and had consult by teleneurology who reported based on the CT these appear to be primarily air emboli and is recommending Trendelenburg and no thrombolytics. Per nurses' notes teleNEURO was called at 15:[address] Marie discussed the case with Dr. Jet Gil. SEPSIS alert was also called at 16:10. Chest tube was placed by the resident physician, Dr. Savanna Ch. Patient is awake, talking in full sentences, and is answering questions. There is no facial droop. + left-sided weakness noted. Lungs with rhonchi bilaterally. Patient's blood pressure is 90 systolically. After reviewing the chart, the patient is septic with a likely source of multiple existing nephrostomy tube. Repeat CXR shows worsening pneumonia. At 1530, patient had a WBC count of 41k. Patient placed in trendelenburg. Patient had 700mL IVF prior to getting the repeat CXR that was done at 2048: Resolved PTX, +CHF 2210: Patient at CT. Due to being a sepsis alert, he was given 2.5L of IVF. If he remains hypotensive, will start vasopressors. 2223: Patient is back from CT. 7: Troponin is now 2.174. Patient is becoming more altered. reshma Luz ardiologist is now on the phone with Dr. Ch and Ana. After having an extensive conversation with him, he requests Lasix and starting Heparin drip. Feels that the patient's CXR worsened due to the fluids he received. 2349: Dr. Ch spoke with the patient's son [id number], who discussed at length with him regarding the patient's condition. He gave verbal consent to intubate the patient if needed. Patient started on Levophed. 0025: CT abdomen pelvis as below. On exam, patient has fullness at the right perianal extending to the medial area of the scrotum with erythema, but no crepitus, nontender, no discharge. There is penile discharge. Need to consult with [facility] and/or urology for postop complication and postop infection. Spoke with [facility], who declined the patient for transfer due to not having urology until Saturday. 0157: Spoke with [facility]'s transfer center, states they will call me back regarding acceptance. 0500: Dr. Ch, re-evaluation of patient. He continues to be on low dose Levophed 0.35, BP 120/80, O2 98% on 6L, HR 100s. Mentation has been waxing and waning, patient is oriented to self and birthdate. He has a right-deviated gaze and continues to have left-sided upper and lower extremity weakness. V/S: BP- 120/70, HR: 101, O2: 96% on 6L/NC. Patient is able to answer questions, is not mottled. There is more redness to the right scrotal area, no crepitus, and it is not black. Patient is on 0/3mcg Levophed. WBC significantly uptrending at 55k, due to concern for possible source exte nsive perineal air-containing soft tissue infections patient needs Urology surgical services for source control. 0557: Cinthya Singleton, urologist from [facility] states they do not feel this is a urology problem. Request us to consult with our general surgeon. States we can callback if we need to further consult with them. 0606: Care signed out to Dr. Marie (emergency physician). Past medical, surgical, social and family history reviewed. Vitals and home medications reviewed. Results and treatment plan discussed. They will assume the care of the patient at this time and will follow the patient, pending callback from [facility] for transfer. Evaluation data The following diagnostics were reviewed and interpreted by me: radiology exam(s) Interpretation Summary: I personally reviewed the radiology data and agree with the radiologist's interpretation. AP chest single view Findings: Left apical lateral pneumothorax, estimated 30% No shift of the mediastinum or trachea to the right Heart failure pattern with enlarged cardiac contour prominent vascular congestion perihilar basilar edema Small to moderate bilateral pleural effusions Cardiac leads satisfactory position Impression: Left apical lateral pneumothorax, estimated 30% Dictated By: Luis E Thompson MD Examination: AP chest single view Findings: Interval insertion left chest tube Satisfactory expansion left lung Heart failure pattern again noted Impression: Interval insertion left chest tube with reexpansion left lung Dictated By: Luis E Thompson MD Signed By: <Electronically signed by Luis E Thompson MD in OV> 08/01/242219 CTA chest with intravenous contrast Findings: AP dimension ascending thoracic aorta 3.6 cm Aortic valve replacement No pulmonary artery emboli Mild to moderate enlargement cardiac contour Prominent vascular congestion with septal bilateral pulmonary edema Moderate bilateral pleural effusions with atelectasis in the lower lung zones Left chest tube with minimal 5% left pneumothorax Pericardial effusion up to 10 mm No visualized liver or splenic lesion Cholelithiasis No pancreatic mass Bilateral percutaneous nephrostomies satisfactory position no pneumothorax Impression: Negative for thoracic aortic aneurysm dilatation or dissection Negative for pulmonary artery emboli Moderate CHF Satisfactory expansion left lung Dictated By: Luis E Thompson MD Signed By: <Electronically signed by Luis E Thompson MD in OV> 08/01/24 0223 Examination: CT abdomen with intravenous contrast Findings: No focal liver lesions Gallstones No pancreatic or adrenal mass Bilateral percutaneous nephrostomies with no hydronephrosis Large amounts of stool in the rectosigmoid Abdominal aortic calcification no aneurysmal dilatation Prominent rectal wall thickening with marked inflammatory change surrounding the rectum Prostate radiation seeds Marked urinary bladder wall thickening, urinary bladder catheter Extensive perineal air-containing soft tissue infection that extends posteriorly to the posterior skin surface and anteriorly into the scrotum including into the penis No fluid-filled drainable abscess Impression: Cystitis pattern Very marked rectal wall thickening with prominent perirectal inflammatory change, severe proctitis pattern, rectal tumor not excluded Extensive perineal air-containing soft tissue infections as above Air in the common femoral veins, clinical correlation advised Dictated By: Luis E Thompson MD Signed By: <Electronically signed by Luis E Thompson MD in OV> 08/02/24 0003 Critical Care Time Critical Care Time Critical Care Time: Yes Total Critical Care Time (min.): 90 Attestation: The high probability of sudden, clinically significant deterioration in the patient?s condition required the highest level of my preparedness to intervene urgently. ? The services I provided to this patient were to treat and/or prevent clinically significant deterioration. Services included the following: chart data review, reviewing nursing notes and/or old charts, documentation time, loss prevention consultant collaboration regarding findings and treatment options, medication orders and management, direct patient care, vital sign assessments and ordering, interpreting and reviewing diagnostic studies and lab tests. ? Aggregate critical care time includes only time during which I was engaged in work directly related to the patient?s care, as described above, whether at bedside or elsewhere in the Emergency Department. It did not include time spent performing other reported procedures or the services of residents, students, nurses or physician assistants. <Traci Ch MD - Last Filed: 08/02/24 05:38> Addendum Narrative: 1800 Care assumed from Danielito Jimenez MD (emergency physician). Past medical, surgical, social and family history reviewed. Vitals and home medications reviewed. Results and treatment plan discussed. I will assume the care of the patient at this time and will follow the patient, pending evaluation for STROKE alert, HEART alert and SEPSIS alert. Dr. Banda saw this patient at bedside. Please refer to the emergency department record for history and examination from initial visit. The following addendum documentation note is intended to reflect any pending information, findings, or radiology results not included in the patient?s initial chart. Review of the initial emergency department record by Dr. Marie shows STROKE alert was called at 15:29 and had consult by teleneurology who reported based on the CT these appear to be primarily air emboli and is recommending Trendelenburg and no thrombolytics. Per nurses' notes teleNEURO was called at 15:[address] Marie discussed the case with Dr. Jet Gil. SEPSIS alert was also called at 16:10. Chest tube was placed by the resident physician, Dr. Savanna Ch. Patient is awake, talking in full sentences, and is answering questions. There is no facial droop. + left-sided weakness noted. Lungs with rhonchi bilaterally. Patient's blood pressure is 90 systolically. After reviewing the chart, the patient is septic with a likely source of multiple existing nephrostomy tube. Repeat CXR shows worsening pneumonia. At 1530, patient had a WBC count of 41k. Patient placed in trendelenburg. Patient had 700mL IVF prior to getting the repeat CXR that was done at 2048: Resolved PTX, +CHF 2211: Patient at CT. Due to being a sepsis alert, he was given 2.5L of IVF. If he remains hypotensive, will start vasopressors. 2223: Patient is back from CT. 2327: Troponin is now 2.174. Patient is becoming more altered. Dr. Banda, butcher apprentice is now on the phone with Dr. Ch and I. After having an extensive conversation with him, he requests Lasix and starting Heparin drip. Feels that the patient's CXR worsened due to the fluids he received. 2349: Dr. Ch spoke with the patient's son [id number], who discussed at length with him regarding the patient's condition. He gave verbal consent to intubate the patient if needed. Patient started on Levophed. 0025: CT abdomen pelvis as below. On exam, patient has fullness at the right perianal extending to the medial area of the scrotum with erythema, but no crepitus, nontender, no discharge. There is penile discharge. Need to consult with [facility] and/or urology for postop complication and postop infection. Spoke with [facility], who declined the patient for transfer due to not having urology until Saturday. 0157: Spoke with [facility]'s transfer center, states they will call me back regarding acceptance. 0500: Dr. Ch, re-evaluation of patient. He continues to be on low dose Levophed 0.35, BP 120/80, O2 98% on 6L, HR 100s. Mentation has been waxing and waning, patient is oriented to self and birthdate. He has a right-deviated gaze and continues to have left-sided upper and lower extremity weakness. WBC significantly uptrending at 55k, due to concern for possible source extensive perineal air-containing soft tissue infections patient needs Urology surgical services for source control. Evaluation data The following diagnostics were reviewed and interpreted by me: radiology exam(s) Interpretation Summary: I personally reviewed the radiology data and agree with the radiologist's interpretation. AP chest single view Findings: Left apical lateral pneumothorax, estimated 30% No shift of the mediastinum or trachea to the right Heart failure pattern with enlarged cardiac contour prominent vascular congestion perihilar basilar edema Small to moderate bilateral pleural effusions Cardiac leads satisfactory position Impression: Left apical lateral pneumothorax, estimated 30% Dictated By: Luis E Thompson MD Examination: AP chest single view Findings: Interval insertion left chest tube Satisfactory expansion left lung Heart failure pattern again noted Impression: Interval insertion left chest tube with reexpansion left lung Dictated By: Luis E Thompson MD Signed By: <Electronically signed by Luis E Thompson MD in OV> 08/01/24 2220 CTA chest with intravenous contrast Findings: AP dimension ascending thoracic aorta 3.6 cm Aortic valve replacement No pulmonary artery emboli Mild to moderate enlargement cardiac contour Prominent vascular congestion with septal bilateral pulmonary edema Moderate bilateral pleural effusions with atelectasis in the lower lung zones Left chest tube with minimal 5% left pneumothorax Pericardial effusion up to 10 mm No visualized liver or splenic lesion Cholelithiasis No pancreatic mass Bilateral percutaneous nephrostomies satisfactory position no pneumothorax Impression: Negative for thoracic aortic aneurysm dilatation or dissection Negative for pulmonary artery emboli Moderate CHF Satisfactory expansion left lung Dictated By: Luis E Thompson MD Signed By: <Electronically signed by Luis E Thompson MD in OV> 08/01/24 5825 Examination: CT abdomen with intravenous contrast Findings: No focal liver lesions Gallstones No pancreatic or adrenal mass Bilateral percutaneous nephrostomies with no hydronephrosis Large amounts of stool in the rectosigmoid Abdominal aortic calcification no aneurysmal dilatation Prominent rectal wall thickening with marked inflammatory change surrounding the rectum Prostate radiation seeds Marked urinary bladder wall thickening, urinary bladder catheter Extensive perineal air-containing soft tissue infection that extends posteriorly to the posterior skin surface and anteriorly into the scrotum including into the penis No fluid-filled drainable abscess Impression: Cystitis pattern Very marked rectal wall thickening with prominent perirectal inflammatory change, severe proctitis pattern, rectal tumor not excluded Extensive perineal air-containing soft tissue infections as above Air in the common femoral veins, clinical correlation advised Dictated By: Luis E Thompson MD Signed By: <Electronically signed by Luis E Thompson MD in OV> 08/02/24 0003 Critical Care Time Critical Care Time Critical Care Time: Yes Total Critical Care Time (min.): 90 Attestation: The high probability of sudden, clinically significant deterioration in the patient?s condition required the highest level of my preparedness to intervene urgently. ? The services I provided to this patient were to treat and/or prevent clinically significant deterioration. Services included the following: chart data review, reviewing nursing notes and/or old charts, documentation time, loss prevention consultant collaboration regarding findings and treatment options, medication orders and management, direct patient care, vital sign assessments and ordering, interpreting and reviewing diagnostic studies and lab tests. ? Aggregate critical care time includes only time during which I was engaged in work directly related to the patient?s care, as described above, whether at bedside or elsewhere in the Emergency Department. It did not include time spent performing other reported procedures or the services of residents, students, nurses or physician assistants. Attestation <Celio Lucas - Last Filed: 08/01/24 21:46> MD Attestation Scribe Attestation: I, Mckenna Lucas, am scribing for and in the presence of Dr. Bales. Provider Notation: Although this document has been carefully reviewed, there may still be some phonetic and other typographical errors. These errors are purely grammatical due to imperfections in the software program and should not be construed in any way to compromise the substance of the patient's medical care during this visit.
[2024-08-01 19:18] LABS: Lactic Acid, 3 HR 2.3 mMol/L (0.4-2.0)
--- NOTE | 2024-08-01 19:26 | PC.CM ---
1800 I spoke to Servando earlier today and she stated she said patient needs to be transferred to [facility]. She had already started working on the transfer. I started packet and then I received a call from Serv[facility] stating patient was declined for transfer.
--- NOTE | 2024-08-01 19:45 | PC.NURSE ---
Pt states that he is nauseous, however unable to set hium up and pt's neck is stiff, physician aware. Pt remains in [place] and will give IV zofran
[2024-08-01 19:54] LABS: Collection Type, Urine Catheter
[2024-08-01 20:30] LABS: Bacteria,Urine 3+; Bilirubin,Urine Negative (Negative); Blood,Urine 3+ (Negative); Budding Yeast,Urine Present; Clarity,Urine Turbid (Clear/Hazy); Color,Urine Yellow (Lt Yel-Yel); Glucose, Urine Negative (Negative); Ketones,Urine Negative (Negative); Leukocyte Esterase,Urine Positive (Negative); Nitrite,Urine Negative (Negative); PH,Urine 6.5 (5.0-7.0); Protein,Urine 2+ (Neg - Trace); RBC,Urine 182 /hpf (0-3); Specific Gravity,Urine 1.016 (1.001-1.035); Squamous Epithelial Cell,Urine < 1 /hpf (0-5); Urobilinogen,Urine Negative mg/dL (0.0-1.0); WBC,Urine 192 /hpf (0-5)
--- NOTE | 2024-08-01 20:44 | XR_ITS ---
Examination: CT abdomen with intravenous contrast CT pelvis with intravenous contrast 2-D coronal reconstructions 2-D sagittal reconstructions Date and time of exam:August 01, 1999 2510 0 6:00 PM Indications: Sepsis today. CTDI: vol (mGy) 15.2 DLP: (mGycm) 911 Technique: Multiple axial sections of the abdomen and pelvis have been obtained. 64 slice high-resolution scanner used. 3 mm axial sections have been obtained, post intravenous injection 60 cc [id number] 2-D sagittal, coronal reconstructions obtained. Low dose protocols were performed. One or more of the following dose reduction techniques were used; automated exposure control, adjustment of the mA and/or KV according to patient size, use of iterative reconstruction technique. Findings: No focal liver lesions Gallstones No pancreatic or adrenal mass Bilateral percutaneous nephrostomies with no hydronephrosis Large amounts of stool in the rectosigmoid Abdominal aortic calcification no aneurysmal dilatation Prominent rectal wall thickening with marked inflammatory change surrounding the rectum Prostate radiation seeds Marked urinary bladder wall thickening, urinary bladder catheter Extensive perineal air-containing soft tissue infection that extends posteriorly to the posterior skin surface and anteriorly into the scrotum including into the penis No fluid-filled drainable abscess Impression: Cystitis pattern Very marked rectal wall thickening with prominent perirectal inflammatory change, severe proctitis pattern, rectal tumor not excluded Extensive perineal air-containing soft tissue infections as above Air in the common femoral veins, clinical correlation advised
--- NOTE | 2024-08-01 20:49 | XR_ITS ---
Examination: AP chest single view Technique: portable supine chest single view Exam date and time: August 01, [id number] hrs. Comparison August 01, [id number] hrs. Indications: Pneumothorax apicolateral on the left post chest tube placement Findings: Interval insertion left chest tube Satisfactory expansion left lung Heart failure pattern again noted Impression: Interval insertion left chest tube with reexpansion left lung
--- NOTE | 2024-08-01 20:52 | ESCONSULT_ITS ---
Tele Neuro Consultation Consultation Date 08/01/24 Most Recent Vital Signs Last Vital Signs Temp 99.4 F 08/01/24 18:59 Pulse 146 H 08/01/24 20:35 Resp 34 H 08/01/24 20:35 BP 114/52 L 08/01/24 20:35 Pulse Ox 92 L 08/01/24 20:35 O2 Del Method Oxy Mask 08/01/24 18:18 O2 Flow Rate 11 08/01/24 18:18 Laboratory-Coagulation Panel PT 13.1 Seconds (9.0-12.2) H 08/01/24 15:30 INR 1.2 (0.9-1.3) 08/01/24 15:30 APTT 29.1 Seconds (22.0-36.0) 08/01/24 15:30 Consultation Narrative [facility] Tele[facility]urology Consult Services Patient Name:???Jules Cabrera Date of :???1940 Identification Number:??? Date of Service:???08/01/2024 15:30:00 Diagnosis:?I63.89 - Cerebrovascular accident (CVA) due to other mechanism (HCCC) Impression: ?84 year old male presenting following cardiac pacemaker implant with acute cerebral air embolism resulting in altered mental status and left > right sided weakness. Our recommendations are outlined below. Recommendations: ? Neuro Checks ? Bedside Swallow Eval ? DVT Prophylaxis ? IV Fluids, Normal Saline ? Head of Bed 30 Degrees ? Euglycemia and Avoid Hyperthermia (PRN Acetaminophen) ?Continue Trendelenburg positioning and 100% oxygen as tolerated. Further recs and supportive care per primary team. ?MRI brain without contrast when able. Sign Out: ? Discussed with Emergency Department Provider Advanced Imaging: Advanced Imaging Deferred because: Stroke not suspected with clinical presentation and exam Metrics: Last Known Well: 08/01/2024 14:30:00 Dispatch Time: 08/01/2024 15:30:00 Arrival Time: 08/01/2024 15:25:00 Initial Response Time: 08/01/2024 15:36:00Symptoms: altered mental status. Initial patient interaction: 08/01/2024 15:47:00 NIHSS Assessment Completed: 08/01/2024 15:50:00Patient is not a candidate for Thrombolytic. Thrombolytic Medical Decision: 08/01/2024 15:50:00Patient was not deemed geeta te for Thrombolytic because of following reasons: other diagnosis suspected Suspect cerebral air embolism. I personally reviewed the CT Head and it showed gas-density serpiginous foci in the subarachnoid spaces, collecting around the right frontal and left occipital lobes consistent with cerebral air emboli. Primary Provider Notified of Diagnostic Impression and Management Plan on: 08/01/2024 16:20:00 History of Present Illness:Patient is a 84 year old Male. Patient was brought by EMS for symptoms of altered mental status. Patient is an 84 year old male with history of HTN presenting with altered mental status and left facial weakness x 1 hour. Patient comes in following a pacemaker implantation procedure, after which he had altered mental status and left > right sided weakness. Past Medical History: ?Hypertension ?Hyperlipidemia ?Atrial Fibrillation ?Coronary Artery Disease unable to obtain due to:?? Patient Is Obtunded/ Comatose Medications: Anticoagulant use:??Yes?Eliquis No Antiplatelet use Reviewed EMR for current medications Allergies:? Reviewed Allergies Unable To Obtain Due To:?Patient Is Obtunded/ Comatose Social History: Unable To Obtain Due To Patient Status :?Patient Is Obtunded/ Comatose Family History: Family History Cannot Be Obtained Because:Patient Is Obtunded/ Comatose There is no family history of premature cerebrovascular disease pertinent to this consultation ROS :?ROS Cannot Be Obtained Because:? Patient Is Obtunded/ Comatose Past Surgical History: Past Surgical History Cannot Be Obtained Because: Patient Is Obtunded/ Comatose There Is No Surgical History Contributory To Today?s Visit Examination: BP(70/40),?Pulse(114),?Blood Glucose(138) 1A: Level of Consciousness - Alert; keenly responsive?+ 0 1B: Ask Month and Age - Both Questions Right?+ 0 1C: Blink Eyes & Squeeze Hands - Performs Both Tasks?+ 0 2: Test Horizontal Extraocular Movements - Normal?+ 0 3: Test Visual Arora - No Visual Loss?+ 0 4: Test Facial Palsy (Use Grimace if Obtunded) - Normal symmetry?+ 0 5A: Test Left Arm Motor Drift - No Drift for 10 Seconds?+ 0 5B: Test Right Arm Motor Drift - No Drift for 10 Seconds?+ 0 6A: Test Left Leg Motor Drift - No Drift for 5 Seconds?+ 0 6B: Test Right Leg Motor Drift - No Drift for 5 Seconds?+ 0 7: Test Limb Ataxia (FNF/Heel-Garcia) - No Ataxia?+ 0 8: Test Sensation - Normal; No sensory loss?+ 0 9: Test Language/Aphasia - Normal; No aphasia?+ 0 10: Test Dysarthria - Normal?+ 0 11: Test Extinction/Inattention - No abnormality?+ 0 NIHSS Score:?0 Pre-Morbid Modified Rory Scale:Unable to assess Spoke with :?Dr. Marie This consult was conducted in real time using interactive audio and video technology. Patient was informed of the technology being used for this visit and agreed to proceed. Patient located in hospital and provider located at home/office setting. Patient is being evaluated for possible acute neurologic impairment and high probability of imminent or life-threatening deterioration. I spent total of 50 minutes providing care to this patient, including time for face to face visit via telemedicine, review of medical records, imaging studies and discussion of findings with providers, the patient and/or family. Dr Jet Gil [facility] For Inpatient follow-up with [facility] physician please call [facility] at . As we are not an outpatient service for any post hospital discharge needs please contact the hospital for assistance. If you have any questions for the [facility] physicians or need to reconsult for clinical or diagnostic changes please contact us via [facility] at .
--- NOTE | 2024-08-01 21:44 | EDNOTE_ITS ---
Emergency Room Addendum <Marcelina Bales MD - Last Filed: 08/01/24 22:17> Addendum Narrative: Hi Dr. Braswell was present for the discussion with the patient and family regarding placement of chest tube. I was present and at the bedside for the entire procedure. I reviewed the note and agree. MD Attestation <Traci Ch MD - Last Filed: 08/01/24 22:02> MD Attestation Procedures - ED Chest Tube Placement Indication for chest tube: Left apical pneumothorax Consent: Patient's son, Abilio consented via phone for the procedu re. Indications, risks, and benefits were explained to the patient and his son. Time out: 20:39 correct patient, position, site I wore a surgical cap, mask, sterile gown, and sterile gloves throughout the procedure. The patient was prepped and draped in a sterile manner using chlorhexidine scrub after the patient was positioned in the usual fashion. A total of 4 ml of 1% lidocaine was used to anesthesize the skin, subcutaneous tissue, superior aspect of the rib periosteum and parietal pleura. A 3 mm incision was then made parallel to the rib in the anterior axillary line and fifth interspace. The subcutaneous tissue superficial and superior to the rib was dissected bluntly to the level of the pleura with the pigtail catheter chest tube which was then directed and inserted easily. The chest tube was sutured to the skin at the insertion site, and connected securely with tape to a pleurovac. Foam tape occlusive dressing was placed over the insertion site. No immediate complications were noted. Post-procedure chest x-ray confirmed placement in the left pleura with improvement of left pneumothorax. Estimated blood loss is <1 ml. Chest Tube 1: Chest Tube Location: left, anterior axillary line and fifth interspace Size of Tube (cm): 20 Chest Tube Prep: Yes betadine prep and sterile drapes applied Local Anesthetic: lidocaine 1% Amount of anesthesia used (mL): 4 Incision Made With: #10 blade Post Procedure: sutured to skin and other (split gauze and foam tape) Tube Drainage: fluid (clear yellow fluid) Amount of initial drainage (mL): 0 Post Procedure CXR?: Yes - confirms location Patient Tolerated Procedure: Yes Procedure was done with the attending physician, Dr. Bales. Traci Ch, PGY-2 Internal Medicine
--- NOTE | 2024-08-01 21:46 | PD.EDAMS ---
Altered Mental Status RME/HPI General Chief Complaint: Altered Mental Status Stated Complaint: AMS Time Seen by Provider: 08/01/24 15:33 Arrival date/time: 08/01/24 15:25 RME / HPI RME / HPI narrative: 84-year-old male who had a pacemaker placed to days ago at [facility] who is brought in by EMS for sudden onset of altered mental status, nonverbal, not following commands starting 1 hour prior to advisable. Patient offers no history. : Notes he had a pacemaker placed 2 days ago with a of normal state of health until proxy 1 hour prior to arrival. 1530, on arrival STROKE ALERT: AMS, left-sided deficits, left-sided paralysis, left-sided facial droop, left-sided neglect 1610, STROKE ALERT: leukocytosis of 44,000, lactic acid of 3.0. 1650, HEART ALERT: ST elevations on inferior lateral leads, case and EKG was discussed with Dr. Sandy Banda Related Data Home Medications ?Medication ?Instructions ?Recorded ?Confirmed rosuvastatin 20 mg tablet (Crestor) 20 mg PO HS #0 tabs 03/31/16 05/26/24 amlodipine 5 mg tablet 5 mg PO PRN PRN Blood Pressure 09/02/18 05/26/24 levothyroxine 88 mcg tablet 88 mcg PO QDAY 09/02/18 05/26/24 apixaban 5 mg tablet (Eliquis) 2.5 mg PO BID 11/11/23 05/26/24 clopidogrel 75 mg tablet 75 mg PO DAILY 03/13/24 05/26/24 dicyclomine 10 mg capsule 10 mg PO BID 03/13/24 05/26/24 Allergies Allergy/AdvReac Type Severity Reaction Status Date / Time No Known Allergies Allergy Verified 05/26/24 11:44 Course Course Course Narrative: Dr. 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 He also had bilateral nephrostomies placed 1 week ago. All of these procedures were done at [facility]. Orders Category Date Time Status Bedside Blood Glucose NOW Care 08/01/24 15:[address] Screening NOW Care 08/01/24 17:[address] Screening NOW Care 08/01/24 20:[address] Screening X1 Care 08/01/24 20:44 Completed Scarfing Machine Operator NOW Care 08/01/24 15:34 Active Continuous Pulse Oximetry NOW Care 08/01/24 15:34 Completed EKG (ED ONLY) *Do not use* NOW Care 08/01/24 15:34 Completed In and Out Catheter NEEDED Care 08/01/24 15:34 Active Insert IV NOW Care 08/01/24 15:34 Active NIH Stroke Scale now Care 08/01/24 15:34 Active NPO NOW Care 08/01/24 15:34 Active Nurse Swallow Screen x1 Care 08/01/24 15:34 Active Consult to Cardiology Stat Cons 08/01/24 16:32 Ordered Consult to Neurology / Tele-Neurology Routine Cons 08/01/24 15:[address] abdomen pelvis w con Stat Exams 08/01/24 20:[address] angio chest Stat Exams 08/01/24 17:[address] angio stroke protocol Stat Exams 08/01/24 15:[address] stroke protocol Stat Exams 08/01/24 15:34 Completed EKG (ED Only) Stat Exams 08/01/24 15:34 Draft XR chest 1V portable Stat Exams 08/01/24 16:38 Completed XR chest 1V post procedure Stat Exams 08/01/24 20:49 Taken Blood Culture (Lab) Stat Lab 08/01/24 15:30 Received CBC Stat Lab 08/01/24 15:30 Completed Comprehensive Metabolic Panel Stat Lab 08/01/24 15:30 Completed Lactate (Lactic Acid) Stat Lab 08/01/24 15:30 Completed Lactic Acid, 3 HR Stat Lab 08/01/24 19:10 Completed Magnesium Stat Lab 08/01/24 15:30 Completed Partial Thromboplastin Time Stat Lab 08/01/24 15:30 Completed [address] Review Blood Smear Stat Lab 08/01/24 15:30 Completed Procalcitonin Stat Lab 08/01/24 15:30 Completed Prothrombin Time with INR Stat Lab 08/01/24 15:30 Completed Troponin I Stat Lab 08/01/24 15:30 Completed Urinalysis Stat Lab 08/01/24 17:29 Completed Urine Culture Stat Lab 08/01/24 20:00 Received Acetaminophen Ivpb [Ofirmev Inj] Med 08/01/24 20:15 Discontinued 1,000 mg in 100 ml IV X1 Etomidate Inj [Amidate Inj] Med 08/01/24 15:47 Discontinued 20 mg IVP X1 ONE Ondansetron Inj [Zofran Inj] Med 08/01/24 15:34 Active 4 mg IV Q4HR PRN Piper/Tazo 3.375 gm [Zosyn] Med 08/01/24 16:08 Discontinued 3.375 gm in 50 ml IV X1 Rocuronium Inj [Zemuron Inj] Med 08/01/24 15:47 Discontinued 70 mg IVP X1 ONE Sodium Chloride 0.9% 1000 ml [Ns] 1,000 ml Med 08/01/24 21:37 Active IV 999 mls/hr Sodium Chloride 0.9% 1000 ml [Ns] 1,000 ml Med 08/01/24 21:44 Active IV 999 mls/hr Sodium Chloride 0.9% 1000 ml [Ns] 1,000 ml Med 08/01/24 21:45 Active IV 999 mls/hr Vancomycin Inj 1,000 mg Med 08/01/24 16:08 Discontinued Sodium Chloride 0.9% 250 ml [Ns] 250 ml IV X1 fentaNYL INJ [Sublimaze Inj] Med 08/01/24 21:36 Discontinued 75 mcg IVP X1 ONE Oxygen Delivery NOW RT 08/01/24 15:34 Active Vital Signs Vital signs: Vital Signs Pulse Oximetry (%) 93 L 08/01/24 15:29 Oxygen Flow Rate 15 08/01/24 15:29 Procedures -ED Chest Tube Chest Tube 1: Chest Tube Location: left (left mid-axillary) Altered Mental Status Medications / Prescriptions Medication administrations:: Medication Administration History Sodium Chloride (Ns) 1,000 mls @ 999 mls/hr IV .Q1H1M ONE Stop: 08/01/24 22:37 Sodium Chloride (Ns) 1,000 mls @ 999 mls/hr IV .Q1H1M ONE Stop: 08/01/24 22:44 Sodium Chloride (Ns) 1,000 mls @ 999 mls/hr IV .Q1H1M ONE Stop: 08/01/24 22:45 Ondansetron HCl (Ondansetron Inj 2 Mg/Ml Inj 2 Ml) 4 mg IV Q4HR PRN PRN Reason: NAUSEA OR VOMITING Stop: 08/31/24 15:33 Discontinued Medications Etomidate (Etomidate Inj 2 Mg/Ml Vial 10 Ml) 20 mg IVP X1 ONE Stop: 08/01/24 15:48 Last Admin: 08/01/24 18:55 Dose: Not Given Documented By: ED Non-Admin Reason: Cancelled by Provider Fentanyl Citrate (Fentanyl Cit Inj 50 Mcg/Ml Amp 2ml) 75 mcg IVP X1 ONE Stop: 08/01/24 21:37 Vancomycin HCl 1,000 mg/ (Sodium Chloride) 250 mls @ 150 mls/hr IV X1 ONE Stop: 08/01/24 17:47 Last Infusion: 08/01/24 20:18 Dose: Infused Documented By: Admin: 08/01/24 17:42 Dose: 150 mls/hr Documented By: ED Piperacillin/Tazobactam/Dextrose (Zosyn) 3.375 gm in 50 mls @ 100 mls/hr IV X1 ONE Stop: 08/01/24 16:37 Last Infusion: 08/01/24 17:36 Dose: Infused Documented By: Admin: 08/01/24 16:50 Dose: 100 mls/hr Documented By: ED Acetaminophen (Ofirmev Inj) 1,000 mg in 100 mls @ 250 mls/hr IV X1 ONE Stop: 08/01/24 20:38 Rocuronium [place] (Rocuronium Inj 10 Mg/Ml Vial 10 Ml) 70 mg IVP X1 ONE Stop: 08/01/24 15:48 Last Admin: 08/01/24 18:55 Dose: Not Given Documented By: ED Non-Admin Reason: Cancelled by Provider Discharge Plan Prescriptions/Referrals Prescriptions/Med Rec: No Action rosuvastatin [Crestor] 20 MG tablet 20 mg PO HS Qty: 0 amlodipine 5 mg Tablet 5 mg PO PRN PRN (Reason: Blood Pressure) Rx Instructions: If BP is over 140 levothyroxine 88 mcg Tablet 88 mcg PO QDAY clopidogrel 75 mg tablet 75 mg PO DAILY dicyclomine 10 mg capsule 10 mg PO BID Patient Comments: take 1 capsule by mouth twice a day Eliquis 5 mg tablet 2.5 mg PO BID Referrals: No Primary/Family,Physician [Primary Care Provider] - In 1 week Problem List Clinical Impression: Acute CVA (cerebrovascular accident), Sepsis, ST elevation (STEMI) myocardial infarction, Pneumothorax Patient/Caregiver Discharge Instructions Print Language: Cameroonian
[2024-08-01] MEDS: ONDANSETRON INJ 2 MG/ML INJ 2 ML 4 MG IV (21:50)
[2024-08-01] MEDS: SODIUM CHLORIDE 0.9% 1000 ML 1,000 ML 999 ML IV ×3 (21:50→21:54)
[2024-08-01 22:37] LABS: Lactate (Lactic Acid) 3.6 mMol/L (0.4-2.0)
[2024-08-01 22:38] LABS: Base Excess, Venous -6 (-3-3); O2 Saturation, Venous 82 % (96-97); PCO2, Venous 32 mmHg (36-56); PO2, Venous 52 mmHg (15-58); pH, Venous 7.38 (7.33-7.66)
[2024-08-01] MEDS: ACETAMINOPHEN IVPB 1,000 MG/100 ML VIAL 250 MG IV (23:07)
[2024-08-01] MEDS: Norepinephrine/D5W 8mg/250ml 8 MG/250 ML BAG 129.274 MG IV (23:10)
[2024-08-01 23:12] LABS: Troponin I 0.744 ng/mL (0.0-0.045)
--- NOTE | 2024-08-01 23:15 | PC.NURSE ---
Dr. Bales notified of positive occult blood in pt stool, rectal temp of 100.2, and elevated trop 0.7
[2024-08-01] MEDS: fentaNYL CIT INJ 50 mCg/ML AMP 2ML 75 MCG IVP (23:18)
[2024-08-01] MEDS: FUROSEMIDE INJ 10 MG/ML 4ML VIAL 40 MG IVP ×2 (23:41→23:43)
[2024-08-02] VITALS (155 sets, daily range): BP systolic 61–186; BP diastolic 36–122; PULSE 63–130; RESP 10–37; TEMP 36.2–37.6; O2SAT 93–100
--- NOTE | 2024-08-02 00:13 | PC.NURSE ---
Left Nephrostomy tube drainage 150ml, Right nephrostomy 125ml, [place]olly 30ml
--- NOTE | 2024-08-02 00:39 | PC.NURSE ---
PAPERWORK FAXED OVER TO [facility] FOR POSSIBLE TRANSFER
[2024-08-02] MEDS: FUROSEMIDE INJ 10 MG/ML VIAL 2 ML 20 MG IVP (00:43)
--- NOTE | 2024-08-02 01:03 | PC.NURSE ---
DR. BUCK ON PHONE SPEAKING WITH TRANSFER NURSE AT [facility]. PER TRANSFER NURSE NO UROLOGY. UNABLE TO ACCEPT
--- NOTE | 2024-08-02 01:28 | PC.NURSE ---
faxed paper work to [facility]
--- NOTE | 2024-08-02 01:30 | ESCONSULT_ITS ---
RE: SANTIAGO HEADLEY : 1940 DATE OF CONSULTATION: 08/01/2024 CONSULTING PHYSICIANS: Hospitalist and emergency room physician. REASON FOR CONSULTATION: Evaluation of ST elevation on EKG and stroke. HISTORY OF PRESENT ILLNESS: The patient is an 84-year-old male, who has complex medical problems including history of bilateral hydronephrosis, who underwent bilateral urostomy drainage catheters on 07/23/2024, who also had a history of atrial fibrillation, sick sinus syndrome, tachy-bradyarrhythmia, underwent permanent pacemaker implantation on 07/22/2024. Subsequently, he had atrial flutter ablation on 07/29/2024. Earlier in 01/2024, patient underwent transcutaneous aortic valve replacement, TAVR procedure, 36 mm Devlin balloon expandable valve was placed for severe aortic stenosis. Coronary angiogram preceding that in 11/2023 showed evidence of nonobstructive coronary arteries. The patient apparently went home only a day ago, was discharged home on Eliquis 2.5 mg twice daily, amlodipine 5 mg daily, amiodarone 200 mg b.i.d. and patient went home and came to the hospital with altered mental status. The patient apparently was off of Eliquis for at least a week because of all these procedures at [facility] and now came home with this and suddenly with altered mental status, left-sided weakness, came to the hospital initially with severe weakness in the left upper extremity and lower extremity, slightly improved. Initial assessment showed patient had atrial fibrillation, moderate to rapid heart rate. There is significant ST elevation in inferolateral leads II, III, aVF, [address] elevation, which were not present on EKG on 07/21/2024 when he was at [facility]. He is also found to have severe leukocytosis with white count 41,000 and chest x- ray showed 30% pneumothorax as well on the left side where the pacemaker is. The patient has suffered a clear stroke. CT scan of the head was performed and showed that the patient probably has air density in the posterior parietal sulci. The patient had old infarction of the right cardiac nucleus. The patient has left-sided weakness. Definitely quite confusing, hence radiology describing as some type of air density in the posterior parietal sulci on the left side, but not on the right side. The patient also had significant ST-elevation in inferior leads. I reviewed the records from [facility]. The patient had complex medical issues as described earlier. The patient was off anticoagulation for at least 5 or 6 days intermittently. Initially, the vital signs were stable. Blood pressure 110/70, pulse rate 74, the saturation was normal, but after chest tube insertion, the patient had pulmonary congestion and altered mental status has worsened. Cardiac alert was called and Dr. Samir Acevedo was consulted at [facility], which he refused to seek the patient saying that there was no need for intervention since patient had normal coronary arteries in the past. The patient clearly has multitude of problems including sepsis, leukocytosis, recent urostomy placement, and TAVR less than 6 months ago for aortic valve replacement and pacemaker implantation and ablation procedure cavotricuspid isthmus for atrial flutter. I spoke to the patient myself. He has not had any significant chest pain, mostly shortness of breath, no orthopnea or PND. The patient did receive 750 mL of fluid bolus. His troponin was mildly elevated. Initial troponin was slightly elevated, subsequently went up slightly. Initial troponin was 0.4 and went to 0.74. EKG continues to show evidence of atrial fibrillation and significant ST elevation was seen in the II, III, aVF and V3, V4 and V5 as well. REVIEW OF SYSTEMS: CARDIOVASCULAR: As discussed earlier. GENITOURINARY: The patient has ureterostomy tube placed. CENTRAL NERVOUS SYSTEM: The patient has left-sided weakness. PHYSICAL EXAMINATION: GENERAL: Acutely ill, chronically ill male, who is quite awake, arousable, alert, in no acute distress. VITAL SIGNS: Blood pressure is soft at 100/60, pulse rate 74, respirations 23, temperature normal, and oxygen saturation 93%. HEENT: Head is atraumatic. NECK: Supple. No JVD. CHEST: Symmetrical. LUNGS: Decreased breath sounds on the left side. HEART: S1 and S2 regular. No gallops or murmurs. ABDOMEN: Thin and soft. EXTREMITIES: Mild edema. GENITOURINARY AND RECTAL: Not performed. CENTRAL NERVOUS SYSTEM: The patient has left-sided weakness in the upper and lower extremities, definitely weak 2-3/5 power. Speech is intact. IMPRESSION: 1. Left-sided weakness with right-sided stroke. 2. Status post recent pacemaker implantation, 30% pneumothorax. 3. Status post ablation for atrial flutter/fibrillation, now remains in atrial fibrillation. 4. Status post transcutaneous aortic valve replacement surgery, TAVR procedure in 01/2024. 5. Atrial fibrillation, chronic, off anticoagulation for several days, possible embolic stroke. 6. Acute ST-segment elevation in inferior leads, possible emboli occluding right coronary artery. DISCUSSION: The patient is an 84-year-old unfortunate male, who was admitted to the hospital with multiple problems including sepsis, leukocytosis, pacemaker implantation more than a week ago and bilateral ureterostomy drainage catheter was placed for urosepsis and hydronephrosis, came to the hospital with altered mental status, left-sided weakness, appears to have neurologic problems. There is a question of air embolism, which I doubt very much has anything to do with what is happening. My feeling is mostly _ emboli from AFib causing stroke. It is too early to tell if the patient has actually stroke on the right side. RECOMMENDATION: The patient was recommended to admit to ICU, IV fluids, be careful and also use a diuretic if necessary since the patient has pulmonary congestion, chest tube placement, start on heparin drip and aspirin to be continued at 81 mg daily along with heparin for anticoagulation. The patient only received one dose of Eliquis so far. Also, we will monitor the CT scan and neurologic status closely, neurologic consultation, not a candidate for thrombolytic therapy clearly. We will get a cardiac echo for . I spent more than 90 minutes of critical care time in the emergency room spending with the patient as well afterwards. DT: 23:45:18 TT: 01:25:00 Ref: [id number] - TID: [id number] MTDD
[2024-08-02 01:34] LABS: Reflex Lactate? Y
[2024-08-02] MEDS: Norepinephrine/NS 16mg/250ml 16 MG/250 ML BAG 48.478 MG IV (01:42)
[2024-08-02 01:55] LABS: Lactic Acid, 3 HR 3.8 mMol/L (0.4-2.0)
--- NOTE | 2024-08-02 01:58 | PC.NURSE ---
DR. BUCK ON PHONE SPEAKING WITH TRANSFER CENTER NURSE DENNY AT [facility]
[2024-08-02 04:53] LABS: Lactate (Lactic Acid) 3.4 mMol/L (0.4-2.0)
[2024-08-02 04:56] LABS: Basophils # (Auto) 0.1 Thou/mm3 (0.0-0.2); Basophils % (Auto) 0 % (0-2.5); Eosinophils # (Auto) 0.3 Thou/mm3 (0.0-0.5); Eosinophils % (Auto) 1 % (0-10); Hematocrit 30.6 % (41.0-53.0); Hemoglobin 9.9 g/dL (13.5-16.0); Immature Granulocytes % (Auto) 3 % (0-0); Immature Granulocytes Auto 1.71 Thou/mm3 (0.00-0.00); Lymphocytes # (Auto) 0.6 Thou/mm3 (1.0-4.8); Lymphocytes % (Auto) 1 % (10-50); Mean Corpuscular HGB Conc 32.4 g/dl (31.0-37.0); Mean Corpuscular Hemoglobin 28.9 pg (25.0-35.0); Mean Corpuscular Volume 89 fL (80-100); Monocytes # (Auto) 2.9 Thou/mm3 (0.0-0.8); Monocytes % (Auto) 5 % (0-12); Neutrophils # (Auto) 50.3 Thou/mm3 (1.8-7.7); Neutrophils % (Auto) 90 % (37-80); Nucleated Red Blood Cell % 0 /100 WBC (0); Platelet Count 313 Thou/mm3 (140-440); RDW Standard Deviation 47.4 fL (35.1-43.9); Red Blood Count 3.43 Miln/mm3 (4.50-5.90)
[2024-08-02 05:16] LABS: White Blood Count 55.9 Thou/mm3 (3.8-10.6)
[2024-08-02] MEDS: Norepinephrine/NS 16mg/250ml 16 MG/250 ML BAG 22.623 MG IV (05:30)
--- NOTE | 2024-08-02 06:00 | PC.NURSE ---
received call back from [facility], dr. aguilar on phone speaking with transfer nurse. pt declined at this time.
[2024-08-02 06:05] LABS: Alanine Aminotransferase 18 U/L (10-49); Albumin, Serum 2.6 gm/dL (3.4-4.8); Albumin/Globulin Ratio 1.1 (1.2-2.2); Alkaline Phosphatase 191 U/L (46-116); Anion Gap 14 (7-16); Aspartate Amino Transferase 40 U/L (0-34); BUN/Creatinine Ratio 21 Ratio (12-20); Bilirubin,Total 0.6 mg/dL (0.3-1.2); Blood Urea Nitrogen 30 mg/dL (9-23); Calcium (Corrected) 7.7 mg/dL (8.5-10.1); Carbon Dioxide 15.6 mMol/L (20.0-31.0); Chloride 110 mMol/L (98-107); Creatinine (Component) 1.4 mg/dL (0.6-1.3); Estimated Creatinine Clearance 36.9 mL/min (>60); Globulin 2.4 gm/dL (2.3-3.5); Glucose 113 mg/dL (74-106); Osmolality,Calculated 286 (275-295); Potassium 3.7 mMol/L (3.4-5.1); Sodium 140 mMol/L (136-145); eGFR 49 See Note
[2024-08-02 06:08] LABS: Calcium 6.6 mg/dL (8.3-10.6); Troponin I 0.939 ng/mL (0.0-0.045)
[2024-08-02] MEDS: PIPER/TAZO INJ 4.5 GM in SODIUM CHLORIDE 0.9% (P) 100 ML IV (06:29)
[2024-08-02] MEDS: Norepinephrine/NS 16mg/250ml 16 MG/250 ML BAG 16.159 MG IV (07:11)
[2024-08-02 07:48] LABS: Reflex Lactate? Y
--- NOTE | 2024-08-02 07:54 | PD.SURCONS ---
HPI Consult details Consult date: 08/02/24 Reason for consultation narrative: The patient was seen in consultation for a possible foreign years gangrene because of air seen in the perineum History of present illness: Patient has been admitted here because of the pneumothorax and status post pacemaker insertion a week ago in [place]. He is also sustained a stroke and is being evaluated for stroke. He was found to have a add in the brain also which is being evaluated. Patient has had no significant abdominal pain or perianal pain. He was found to have markedly elevated WBC and some elevation of lactic acid suggesting sepsis. Attempts were made to transfer him for a possible foreign years gangrene but there were unsuccessful. Meds Home Medications and Allergies Home Medications ?Medication ?Instructions ?Recorded ?Confirmed ?Type rosuvastatin 20 mg tablet (Crestor) 20 mg PO HS #0 tabs 03/31/16 05/26/24 History amlodipine 5 mg tablet 5 mg PO PRN PRN Blood Pressure 09/02/18 05/26/24 History levothyroxine 88 mcg tablet 88 mcg PO QDAY 09/02/18 05/26/24 History apixaban 5 mg tablet (Eliquis) 2.5 mg PO BID 11/11/23 05/26/24 History clopidogrel 75 mg tablet 75 mg PO DAILY 03/13/24 05/26/24 History dicyclomine 10 mg capsule 10 mg PO BID 03/13/24 05/26/24 History Allergies Allergy/AdvReac Type Severity Reaction Status Date / Time No Known Allergies Allergy Verified 05/26/24 11:44 Exam Vital Signs Temp Pulse Resp BP Pulse Ox O2 Del Method O2 Flow Rate 99.2 F 98 20 107/65 99 Nasal Cannula 2 08/02/24 07:23 08/02/24 07:23 08/02/24 07:23 08/02/24 07:23 08/02/24 07:23 08/02/24 07:23 08/02/24 07:23 Narrative Exam Physical examination revealed 84-year-old elderly gentleman not in severe discomfort. He is 6 feet 2 inches tall weighing 152 pounds. His vital signs are normal Constitutional Constitutional: mild distress Routine Chest/Breast/Axilla Exam Comments: Examination of the chest revealed a pacemaker on the left side with pigtail catheter on the left side of the chest for draining pneumothorax Routine Abdominal Exam Comments: Examination abdomen is negative Routine Rectal Exam Comments: Examination of the perianal area showed no evidence of any infection or tenderness or necrosis. Patient has had some brown stool but no perianal abscess was seen Results Results: Laboratory Laboratory Narrative: Laboratory test show increasing WBC around 55,000 from 44,000 yesterday. Chest Results: Imaging Imaging narrative: Chest x-ray shows expanded lung on the left side with a chest tube in place Assessment & Plan Additional Assessment Additional comments: Pression: Recent CVA with air in the cerebral cortex Status post pneumothorax treated with chest tube Air in the perianal region Plan Plan: The patient does not have any surgical condition that requires attention. The presence of air in the perineal and perianal region does not correlate with the clinical finding. This may be the air that is dissecting in the retroperitoneum. With the absence of clinical symptoms patient does not require any debridement not transferred to another institution for this abnormality. We can ask for urology evaluation when they are available tomorrow to explain the air in the perineum
--- NOTE | 2024-08-02 08:00 | PC.NURSE ---
PER DR. WINTERS, HOLD THE NOREPINEPHRINE DRIP AT THIS TIME
--- NOTE | 2024-08-02 08:11 | EDNOTE_ITS ---
Emergency Room Addendum Addendum Narrative: 0600 care assumed by previous shift provider. Past medical, surgical, social and family history reviewed. Vitals and home medications reviewed. Results and treatment plan discussed. I will assume the care of the patient at this time and will follow the patient, pending final disposition. I reviewed the overnight encounter, testing including a new CT of the abdomen. I reviewed the images myself and you notice significant amount of air in the perineum including the scrotum and around the penile shaft. 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 However patient is afebrile here, on my exam he does not report subjectively of pain in his groin or pelvic area. He does note some upper abdominal pain. My exam shows some firmness to his skin however there is no significant induration, no warmth, no necrosis. There is no foul-smelling consistent of a polymicrobial infection. As per review of the [facility] recommendations for a bedside surgical consult, I actually agree with this. 0730: Case was discussed with Dr. Jade with general surgery, we both examined the patient bedside, we rolled the patient, as well there is no overt signs of fluctuance, necrosis or what would be consistent with a aggressive, necrotizing, Chen's infection. For possible source of infection (we both agree this is not clinically a viable source), he does not recommend transfer for urology due to his clinical findings. And recommends aggressive investigation for a possible other source of infection. 0815: Case was discussed at length with mat making machine tender, Dr. Arango, who also examined the patient bedside, and accepts patient to the ICU.
[2024-08-02 08:35] LABS: Lactic Acid, 3 HR 3.6 mMol/L (0.4-2.0)
--- NOTE | 2024-08-02 08:40 | PC.CM ---
3322 I spoke to Servando and she state Dr. Marie does not want to transfer patient at this time. She states she will get back to me if they decide to transfer.
[2024-08-02 09:28] LABS: Vancomycin,Random 7.1 mcg/mL
--- NOTE | 2024-08-02 10:46 | ECHO_ITS ---
Transthoracic Echo Report Ht (in): 74 Wt (lb): 152 Exam Location: Echo Lab Status: Inpatient Engineering Program Analyst: Gulshan, Lydia Indications: Procedure Performed: BP: 103 / 52 HR: 111 Technical Quality: Very technically difficult study MEASUREMENTS (Male / Female) Normal Values 2D ECHO LV Diastolic Diameter PLAX 5.4 cm 4.2 - 5.9 / 3.9 - 5.3 cm LV Systolic Diameter PLAX 4.1 cm IVS Diastolic Thickness 0.6 cm 0.6 - 1.0 / 0.6 - 0.9 cm LVPW Diastolic Thickness 1.0 cm 0.6 - 1.0 / 0.6 - 0.9 cm LV Relative Wall Thickness 0.3 LVOT Diameter 1.6 cm Aortic Root Diameter 1.8 cm M-MODE Aortic Root Diameter MM 2.2 cm AV Cusp Separation MM 1.1 cm DOPPLER PV Peak Velocity 82.8 cm/s PV Peak Gradient 2.7 mmHg FINDINGS Left Ventricle Normal left ventricular size and systolic function with no obvious regional wall motion abnormalities. Normal left ventricular diastolic filling pattern for age. The ejection fraction is visually estimated at 55 %. Right Ventricle The right ventricle is normal in size and systolic function. Left Atrium The left atrium is normal by two-dimensional, color flow and Doppler imaging with no structural abnormalities, no thrombus formation present. Right Atrium The right atrium is normal by two-dimensional imaging, color flow and Doppler imaging with no structural abnormalities, no thrombus formation present. Atrial Septum The interatrial septum appears normal with no evidence of a shunt. Aorta The aorta is normal by two-dimensional, color flow and Doppler interrogation. Mitral Valve The mitral valve is normal by two-dimensional, color flow and Doppler interrogation. There is no significant mitral valve regurgitation, stenosis or prolapse. Aortic Valve The aortic valve is trileaflet and normal by two-dimensional, color flow and Doppler interrogation. There is no significant aortic valve regurgitation. Tricuspid Valve The tricuspid valve is normal by two-dimensional, color flow and Doppler interrogation. There is no significant tricuspid valve regurgitation. Pulmonic Valve The pulmonic valve is not well visualized. There is no significant pulmonic valve regurgitation. Vessels The pulmonary artery appears normal. The inferior vena cava pulmonary and hepatic veins appear normal. Pericardium There is a small pericardial effusion. CONCLUSIONS Indication: eval LV suboptimally visulaized Aortic valve prosthesis is functiong well Normal left ventricular size and function. Estimated EF 55%. RV is normal in size and systolic function. There is a small pericardial effusion. Sari Ambrocio (Electronically Signed) Final Date: 04 August 2024 08:38
--- NOTE | 2024-08-02 10:49 | PD.INTPROG ---
Documentation for date of: 08/02/24 Subjective Subjective Interval history: This is a 84yo M with a complex recent medical history. Most of his care is obtained at where he was DCd 48hr prior to arrival at [facility] ER. He is a poor historian and a lot of details are obtained from chart review. Apparently he developed AMS and L sided weakness reason for which he was brought into the ER yesterday. A stroke alert was called and pneumocephalus was noted. An EKG was obtained and ST elevations were noted at which point cardiology was consulted. When the case was d/w interventional cards from they stated that he had a recent cath in january of last year which did not show significant CAD and therefore he was declined. pt had a WBC >40k and a CT chest/abd/pelvis was obtained with air density noted in the perineal area as well as femoral vein bilaterally and a pneumothorax. A chest tube was placed and surgical eval was requested for SSTI with gas. Surgery did not feel pt required any surgical intervention. attempts were made to [place] for [place]op complications [place] [facility] [place] [facility] [place]. ICU was contacted for eval. During this time the pts pressure dropped and he was started on levophed in the ER. pt himself was able to hold a discussion and notes weakness in his L but denies pain other than his nose where the mask was placed. He is able to state his name and where he is and knows its the . I discussed with him the potential need for any intubation or CPR and he states that he does not want to be intubated and hooked up to life support nor does he wish CPR. The ER held a similar discussion with the same results. Given this the pt is accepted to ICU here at [facility]. Critical Care Note Critical care time (min.): 79 Exam Vital Signs Temp Pulse Resp BP Pulse Ox O2 Del Method O2 Flow Rate 99.7 F 96 12 126/75 100 Oxy Mask 15 08/02/24 08:20 08/02/24 09:31 08/02/24 09:31 08/02/24 09:15 08/02/24 09:31 08/02/24 09:00 08/02/24 09:31 Narrative Exam Gen- chronically ill appearing, frail and elderly, awake alert and conversant HEENT- NC/AT, mucosa dry, sclera anicteric, PERRL, neck supple with no crepitations noted Chest- LCTAB, HRIR, L chest tube in place, L PPM pocket with surgistrips over site without any pooja erythema or pus noted Abd- s/nt/bs+, small quarter size lesion noted on R perineum area behind the scrotom which is purplish in color with surrounding mild erythema and induration Ext- no edema, pulses palp, no clubbing, no mottling, L sided weakness UE> LE, Drips levo 0.25mcg/kg/min Physical Exam Completion Physical Exam Complete?: Yes Objective - Pharmaceutical Sales Specialist Labs 08/03/24 04:47 08/03/24 14:03 Labs: Laboratory Results - last 24 hr 08/01/24 08/01/24 08/01/24 15:30 17:29 19:10 WBC 41.4 H* RBC 3.69 L Hgb 10.6 L Hct 32.4 L MCV 88 MCH 28.7 MCHC 32.7 RDW Std Deviation 46.0 H Plt Count 320 Neut % (Auto) 90 H Lymph % (Auto) 3 L [place] % (Auto) 6 Eos % (Auto) 0 Baso % (Auto) 0 Neut # (Auto) 37.1 H Lymph # (Auto) 1.1 [place] # (Auto) 2.6 H Eos # (Auto) 0.0 Baso # (Auto) 0.1 Immature Gran # (Auto) 0.59 H Absolute Nucleated RBC 0.00 Immature Gran % 1 H Nucleated RBC % 0 Smear Path Review Sent to Pathologist PT 13.1 H INR 1.2 APTT 29.1 VBG pH VBG pCO2 VBG pO2 VBG O2 Sat (Levy) VBG Base Excess Sodium 134 L Potassium 4.1 Chloride 99 Carbon Dioxide 24.0 Anion Gap 11 BUN 31 H Creatinine 1.4 H Estim Creat Clear Calc Not Performed. eGFR 49 L BUN/Creatinine Ratio 22 H Glucose 138 H Calculated Osmolality 276 Lactic Acid 3.0 H 2.3 H Calcium 8.8 Corrected Calcium 9.1 Magnesium 1.9 Total Bilirubin 1.2 AST 22 ALT 11 Alkaline Phosphatase 165 H Troponin I 0.416 H* Total Protein 6.6 Albumin 3.6 Globulin 3.0 Albumin/Globulin Ratio 1.2 Procalcitonin 1.23 H Ur Collection Type Catheter Urine Color Yellow Urine Clarity Turbid A Urine pH 6.5 Ur Specific [place] 1.016 Urine Protein 2+ A Urine Glucose (UA) Negative Urine Ketones Negative Urine Blood 3+ A Urine Nitrite Negative Urine Bilirubin Negative Urine Urobilinogen (Auto) Negative Ur Leukocyte Esterase Positive Urine RBC 182 H Urine WBC 192 H Ur Squamous Epith Cells < 1 Urine Bacteria 3+ A Urine Yeast (Budding) Present A Random Vancomycin 08/01/24 08/02/24 08/02/24 22:30 01:52 04:45 WBC 55.9 H* D RBC 3.43 L Hgb 9.9 L Hct 30.6 L MCV 89 MCH 28.9 MCHC 32.4 RDW Std Deviation 47.4 H Plt Count 313 Neut % (Auto) 90 H Lymph % (Auto) 1 L [place] % (Auto) 5 Eos % (Auto) 1 Baso % (Auto) 0 Neut # (Auto) 50.3 H Lymph # (Auto) 0.6 L [place] # (Auto) 2.9 H Eos # (Auto) 0.3 Baso # (Auto) 0.1 Immature Gran # (Auto) 1.71 H Absolute Nucleated RBC 0.00 Immature Gran % 3 H Nucleated RBC % 0 Smear Path Review Cancelled PT INR APTT VBG pH 7.38 VBG pCO2 32 L VBG pO2 52 VBG O2 Sat (Levy) 82 L VBG Base Excess -6 L Sodium 140 Potassium 3.7 Chloride 110 H Carbon Dioxide 15.6 L Anion Gap 14 BUN 30 H Creatinine 1.4 H Estim Creat Clear Calc 36.9 L eGFR 49 L BUN/Creatinine Ratio 21 H Glucose 113 H Calculated Osmolality 286 Lactic Acid 3.6 H 3.8 H 3.4 H Calcium 6.6 L* D Corrected Calcium 7.7 L Magnesium Total Bilirubin 0.6 D AST 40 H ALT 18 Alkaline Phosphatase 191 H D Troponin I 0.744 H* D 0.939 H* Total Protein 5.0 L Albumin 2.6 L D Globulin 2.4 Albumin/Globulin Ratio 1.1 L Procalcitonin Ur Collection Type Urine Color Urine Clarity Urine pH Ur Specific [place] Urine Protein Urine Glucose (UA) Urine Ketones Urine Blood Urine Nitrite Urine Bilirubin Urine Urobilinogen (Auto) Ur Leukocyte Esterase Urine RBC Urine WBC Ur Squamous Epith Cells Urine Bacteria Urine Yeast (Budding) Random Vancomycin 7.1 08/02/24 08:30 WBC RBC Hgb Hct MCV MCH MCHC RDW Std Deviation Plt Count Neut % (Auto) Lymph % (Auto) [place] % (Auto) Eos % (Auto) Baso % (Auto) Neut # (Auto) Lymph # (Auto) [place] # (Auto) Eos # (Auto) Baso # (Auto) Immature Gran # (Auto) Absolute Nucleated RBC Immature Gran % Nucleated RBC % Smear Path Review PT INR APTT VBG pH VBG pCO2 VBG pO2 VBG O2 Sat (Levy) VBG Base Excess Sodium Potassium Chloride Carbon Dioxide Anion Gap BUN Creatinine Estim Creat Clear Calc eGFR BUN/Creatinine Ratio Glucose Calculated Osmolality Lactic Acid 3.6 H Calcium Corrected Calcium Magnesium Total Bilirubin AST ALT Alkaline Phosphatase Troponin I Total Protein Albumin Globulin Albumin/Globulin Ratio Procalcitonin Ur Collection Type Urine Color Urine Clarity Urine pH Ur Specific [place] Urine Protein Urine Glucose (UA) Urine Ketones Urine Blood Urine Nitrite Urine Bilirubin Urine Urobilinogen (Auto) Ur Leukocyte Esterase Urine RBC Urine WBC Ur Squamous Epith Cells Urine Bacteria Urine Yeast (Budding) Random Vancomycin Assessment & Plan Additional Assessment Additional Assessment: 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 I anticipate that if the patient's pneumocephalus was causing the patient's current symptoms it would be located on the right. Once patient is stabilized we will obtain an MRI for the follow-up. CV Tropinemia-EKG changes and troponin noted, the patient was seen by cardiology. ST-T changes and cardiology feels that the patient may have an embolic event to his right coronary. Heparin drip was recommended. [facility] declined transfer Shock- obtain additional hemodynamic data, likely distributive in nature and 2/2 sepsis however will obtain bedside echo s/p PPM and ablation within the last 14days Afib- on AC, fu on echo femoral vein air likely due to manipulation recently [place] [facility] [place] Resp Pneumothorax-the patient had a left-sided pacemaker placed and had a left-sided pneumothorax noted on chest x-ray. A left-sided chest tube was placed with reexpansion noted. At this point in time pneumothorax is likely a postop complication of the patient's pacemaker placement. Renal Acidosis- AG mild DELIA- prerenal vs ATN, monitor i/os, avoid nephrotoxins, good UOP at this time Hydronephrosis- b/l nephrostomy tubes in place HypoCa- amp of calcium GI Transaminitis- mild, monitor Endo stable Heme Leukocytosis- likely related to sepsis Anemia- no active bleeding noted DVT proph- on AC ID UTI- on abx fu on cx Sepsis- cx and vanc/zosyn SSTI- demarcate the ischemic appearing area, no pooja crepitations palpated at this time, cont abx, surgical eval noted case d/w ER and ICU team labs, imaging, records reviewed ~79ccmin required for eval, exam, review, intervention, discussion and formulation of POC for this critically ill pt with sepsis at high risk for further and ongoing decompensation Provider Notation Provider Notation: Although this document has been carefully reviewed, there may still be some phonetic and other typographical errors. These errors are purely grammatical due to imperfections in the software program and should not be construed in any way to compromise the substance of the patient's medical care during this visit. Thank you for the opportunity and privilege in assisting you with this patient's care and management.
[2024-08-02] MEDS: VANCOMYCIN/NS 1 GM IVPB 200 ML IV (11:11)
[2024-08-02 13:17] LABS: Glucose Estimated Average 91 mg/dL (80-131); Hemoglobin A1C 4.8 % Hgb (4.8-6.0)
--- NOTE | 2024-08-02 13:19 | ESHP_ITS ---
<Statement entered by Joanna Kahn DO - 08/03/24 07:20> Senior attestation: Patient was examined and case was reviewed with team including attending physician. Note reviewed, I agree with most of its contents and agree with the patient's care. 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 At bedside, patient cannot recall events leading up to hospitalization, therefore details obtained from chart review. Apparently patient presented with left-sided weakness in addition to his altered mental status so stroke was called. Teleneurology evaluated patient but cannot assess NIHSS and unable to determine last known well and so patient was not a candidate for TNK. However, CT head was negative for acute hemorrhage but did show air embolism and recommended to continue Trendelenburg position, 100% O2, and obtain MRI brain. Additionally, EKG showed ST elevations in leads II, III, and aVF as well as troponin of 0.4 and so heart alert was called and cardiology was consulted. Recommended to be judicious with IVF and start heparin drip with Plavix. CXR also showed 30% left apical/lateral pneumothorax and is status post chest tube placement with repeat CXR showing reexpansion of left lung. In ED, blood pressure noted to be as low as 57/45 and was started on Levophed. Of note, attempts were made to transfer to [facility] given multiple recent procedures that were done there but was declined given that patient was not a candidate for PCI. ED course: Vitals: BP 86/61, HR 111, RR 22, temp 97.7 ?F, O2 93% on RA. Initial labs: WBC 41.4, Hgb 10.6, sodium 134, BUN 31, creatinine 1.4, lactate 3.0, troponin 0.42, Pro-Davin 1.2. UA: Turbid, 2+ protein, 3+ blood, 182 RBC, 192 WBC, 3+ bacteria, yeast present. Imaging: CT A/P, CTA chest, CXR, EKG, CT head viewed and noted as above. Given Zosyn, vancomycin, 3 L NS. Review of Systems Review of Systems ROS Unobtainable: unobtainable due to mental status Exam Vital Signs Temp Pulse Resp BP Pulse Ox O2 Del Method O2 Flow Rate 98.6 F 99 18 119/62 100 Oxy Mask 15 08/02/24 11:00 08/02/24 11:08/02/24 11:30 08/02/24 11:30 08/02/24 11:08/02/24 11:08/02/24 11:00 Narrative Exam General: frail elderly gentleman, alert, oriented to name and birthdate, answers questions, follows commands HEENT: NC/AT, mucous membranes moist, bilateral sclera anicteric Cardiovascular: irregular rate, regular rhythm, S1/S2 present, no murmurs appreciated Pulmonary: clear to auscultation bilaterally, no rales/rhonchi/wheezes Abdominal: tender to palpation in all quadrants, soft, non-distended, no guarding Musculoskeletal: no lower extremity edema Skin: - 2 cm purple-colored bruise noted in perineum - bilateral nephrostomy tube insertion sites C/D/I - chest tube insertion on left chest C/D/I Neuro: - CN II-XII intact - sensation intact in upper and lower extremities bilaterally - strength 4/5 in RUE and RLE; 2/5 in LUE and 3/5 in LLE Results: Labs 08/02/24 04:45 08/02/24 04:45 Labs: Short CBC 08/01/24 08/02/24 Range/Units 15:30 04:45 WBC 41.4 H* 55.9 H* D (3.8-10.6) Thou/mm3 Hgb 10.6 L 9.9 L (13.5-16.0) g/dL Hct 32.4 L 30.6 L (41.0-53.0) % Plt Count 320 313 (140-440) Thou/mm3 BMP 08/01/24 08/02/24 15:30 04:45 Sodium 134 L 140 Potassium 4.1 3.7 Chloride 99 110 H Carbon Dioxide 24.0 15.6 L BUN 31 H 30 H Creatinine 1.4 H 1.4 H Glucose 138 H 113 H Calcium 8.8 6.6 L* D Cardiac Enzymes 08/01/24 08/01/24 08/02/24 Range/Units 15:30 22:30 04:45 Troponin I 0.416 H* 0.744 H* D 0.939 H* (0.0-0.045) ng/mL Liver Function 08/01/24 08/02/24 Range/Units 15:30 04:45 Total Bilirubin 1.2 0.6 D (0.3-1.2) mg/dL AST 22 40 H (0-34) U/L ALT 11 18 (10-49) U/L Alkaline Phosphatase 165 H 191 H D (46-116) U/L Albumin 3.6 2.6 L D (3.4-4.8) gm/dL Urine 08/01/24 Range/Units 17:29 Urine Color Yellow (Lt Yel-Yel) Urine Clarity Turbid A (Clear/Hazy) Urine pH 6.5 (5.0-7.0) Ur Specific [place] 1.016 (1.001-1.035) Urine Protein 2+ A (Neg - Trace) Urine Glucose (UA) Negative (Negative) ABG Interpretation ABG results: 08/01/24 22:30 VBG pH 7.38 VBG pCO2 32 L VBG pO2 52 VBG Base Excess -6 L Quality Measures Quality Measures stroke Suspected type of Stroke: Unknown at this time Last known well (date): 08/01/24 Last known well (time): 14:30 Tenecteplase given: Reason(s) Tenecteplase not given: Unable to determine eligibility (Head CT shows air emboli/pneumocephaly) not given Rehab services: PT evaluation ordered VTE Prophylaxis: pharmaceutical Antithrombotic by day 2:: ordered Statin ordered: >75 y/o moderate or high intensity dose Anticoagulation ordered for A-fib or flutter (current or hx): ordered Advance care planning discussed with:: patient and spouse Medications Home Medications and Allergies Home Medications ?Medication ?Instructions ?Recorded ?Confirmed ?Type rosuvastatin 20 mg tablet (Crestor) 20 mg PO HS #0 tab s 03/31/16 05/26/24 History amlodipine 5 mg tablet 5 mg PO PRN PRN Blood Pressu re 09/02/18 05/26/24 History levothyroxine 88 mcg tablet 88 mcg PO QDAY 09/02/18 History apixaban 5 mg tablet (Eliquis) 2.5 mg PO BID 11/11/23 05/26/24 History clopidogrel 75 mg tablet 75 mg PO DAILY 03/13/24/12/22 History dicyclomine 10 mg capsule 10 mg PO BID 03/13/24 History Allergies Allergy/AdvReac Type Severity Reaction Status Date / Time No Known Allergies Allergy Verified 05/26/24 11:44 Visit Medications Acetaminophen (Acetaminophen 325 Mg Tablet) 650 mg PO Q4HR PRN PRN Reason: PAIN SCALE 1-3 (mild Stop: 09/01/24 10:44 Acetaminophen (Acetaminophen Supp 650 Mg Supp) 650 mg TX Q4HR PRN PRN Reason: PAIN SCALE 1-3 (mild Stop: 09/01/24 10:44 Al Hydrox/Mg Hydrox/Simethicone (Mg Hyd/Al Hyd/Kelsey (Maalox Reg) Susp 30 Ml Udc) 30 ml PO Q4HR PRN PRN Reason: Heartburn or Upset Stomach Stop: 09/01/24 10:44 Aspirin (Aspirin Ec 81 Mg Tabec) 81 mg PO QDAY KEN Stop: 09/01/24 12:44 Atorvastatin Calcium (Atorvastatin Calcium 20 Mg Tablet) 40 mg PO HS KEN Stop: 09/01/24 20:59 Piperacillin/Tazobactam/Dextrose (Zosyn) 50 mls @ 12.5 mls/hr IV Q8HR KEN; Protocol Stop: 08/10/24 13:59 Norepinephrine Bitartrate (Levophed In Ns 16mg/250ml) 16 mg in 250 mls @ 3.232 mls/hr IV .Q24H PRN; Protocol PRN Reason: PER PROTOCOL Stop: 09/01/24 06:59 Last Titration: 08/02/24 10:35 Dose: 0.15 mcg/kg/min, 9.696 mls/hr Calcium Gluconate/Sodium Chloride (Calcium Gluc/Ns 1000mg Ivpb) 1,000 mg in 50 mls @ 50 mls/hr IV X1 ONE Stop: 08/02/24 13:37 Heparin Sodium/Dextrose (Heparin In D5w Ivpb) 25,000 unit in 250 mls @ 8.274 mls/hr IV .Q24H KEN; Protocol Stop: 08/16/24 12:44 Vancomycin HCl (Vancomycin/Water 1250 Mg Ivpb) 250 mls @ 120 mls/hr IV QDAY@1400 KEN Stop: 08/09/24 13:59 Magnesium Hydroxide (Milk Of Magnesia Susp 30 Ml Udc) 30 ml PO QDAY PRN PRN Reason: CONSTIPATION Stop: 09/01/24 10:44 Nitroglycerin (Nitroglycerin 0.4 Mg Subl Btl #25) 0.4 mg SL Q5MIN PRN PRN Reason: CHEST PAIN Ondansetron HCl (Ondansetron Inj 2 Mg/Ml Inj 2 Ml) 4 mg IV Q4HR PRN PRN Reason: NAUSEA OR VOMITING Stop: 08/31/24 15:33 Last Admin: 08/01/24 21:50 Dose: 4 mg Ondansetron HCl (Ondansetron Inj 2 Mg/Ml Inj 2 Ml) 4 mg IV Q8HR PRN PRN Reason: NAUSEA OR VOMITING Stop: 09/01/24 11:14 Pharmacy Consult (Pharmacy Renal Dose Adjustment 1 Ea) 1 each XX QDAY PRN PRN Reason: PROTOCOL Stop: 09/02/24 08:59 Pharmacy Consult (Vancomycin Pharmacy To Dose 1 Each Each) 1 each IV QDAY PRN PRN Reason: PROTOCOL Stop: 09/02/24 08:59 Discontinued Medications Acetaminophen (Acetaminophen 325 Mg Tablet) 650 mg PO Q4HR PRN PRN Reason: PAIN SCALE 1-3 (mild Stop: 09/01/24 11:14 Acetaminophen (Acetaminophen Supp 650 Mg Supp) 650 mg TX Q4HR PRN PRN Reason: PAIN SCALE 1-3 (mild Stop: 09/01/24 11:14 Etomidate (Etomidate Inj 2 Mg/Ml Vial 10 Ml) 20 mg IVP X1 ONE Stop: 08/01/24 15:48 Last Admin: 08/01/24 18:55 Dose: Not Given Fentanyl Citrate (Fentanyl Cit Inj 50 Mcg/Ml Amp 2ml) 75 mcg IVP X1 ONE Stop: 08/01/24 21:37 Last Admin: 08/01/24 23:18 Dose: 75 mcg Fentanyl Citrate (Fentanyl Cit Inj 50 Mcg/Ml Amp 2ml) 75 mcg IVP X1 ONE Stop: 08/01/24 21:47 Last Admin: 08/01/24 23:14 Dose: Not Given Furosemide (Furosemide Inj 10 Mg/Ml 4ml Vial) 40 mg IVP X1 ONE Stop: 08/01/24 23:34 Last Admin: 08/01/24 23:41 Dose: 40 mg Furosemide (Furosemide Inj 10 Mg/Ml 4ml Vial) 40 mg IVP X1 ONE Stop: 08/01/24 23:41 Last Admin: 08/01/24 23:43 Dose: 40 mg Furosemide (Furosemide Inj 10 Mg/Ml Vial 2 Ml) 20 mg IVP X1 ONE Stop: 08/02/24 00:36 Last Admin: 08/02/24 00:43 Dose: 20 mg Heparin Sodium (Porcine) (Heparin Sod Inj 5000 Unit/Ml Vial) 5,000 unit SC Q8HR KEN Stop: 08/16/24 13:59 Heparin Sodium (Porcine) (Heparin Sod Inj 5000 Unit/Ml Vial) 4,000 unit IV X1 ONE; Protocol Stop: 08/02/24 12:40 Vancomycin HCl 1,000 mg/ (Sodium Chloride) 250 mls @ 150 mls/hr IV X1 ONE Stop: 08/01/24 17:47 Last Infusion: 08/01/24 20:18 Dose: Infused Piperacillin/Tazobactam/Dextrose (Zosyn) 3.375 gm in 50 mls @ 100 mls/hr IV X1 ONE Stop: 08/01/24 16:37 Last Infusion: 08/01/24 17:36 Dose: Infused Acetaminophen (Ofirmev Inj) 1,000 mg in 100 mls @ 250 mls/hr IV X1 ONE Stop: 08/01/24 20:38 Last Infusion: 08/01/24 23:51 Dose: Infused Sodium Chloride (Ns) 1,000 mls @ 999 mls/hr IV .Q1H1M ONE Stop: 08/01/24 22:37 Last Infusion: 08/01/24 23:14 Dose: Infused Sodium Chloride (Ns) 1,000 mls @ 999 mls/hr IV .Q1H1M ONE Stop: 08/01/24 22:44 Last Infusion: 08/01/24 23:14 Dose: Infused Sodium Chloride (Ns) 1,000 mls @ 999 mls/hr IV .Q1H1M ONE Stop: 08/01/24 22:45 Last Infusion: 08/01/24 23:13 Dose: Infused Piperacillin Sod/Tazobactam (Sod 4.5 gm/ Sodium Chloride) 100 mls @ 200 mls/hr IV Q6HR KEN Stop: 08/08/24 22:11 Last Admin: 08/01/24 23:15 Dose: Not Given Norepinephrine Bitartrate (Levophed In Ns 16mg/250ml) 16 mg in 250 mls @ 0 mls/hr IV .Q0M PRN; Protocol PRN Reason: PER protocol Stop: 08/31/24 22:11 Norepinephrine Bitartrate (Levophed In Ns 16mg/250ml) 16 mg in 250 mls @ 0 mls/hr IV .Q0M PRN; Protocol PRN Reason: PER PROTOCOL Stop: 08/31/24 22:12 Heparin Sodium/Dextrose (Heparin In D5w Ivpb) 25,000 unit in 250 mls @ 0 mls/hr IV .Q0M KEN; Protocol Stop: 08/15/24 22:14 Norepinephrine Bitartrate (Levophed In Ns 16mg/250ml) 16 mg in 250 mls @ 0 mls/hr IV .Q0M KEN; Protocol Stop: 08/31/24 22:44 Norepinephrine/Dextrose (Levophed In D5w 8mg/250ml) 8 mg in 250 mls @ 6.464 mls/hr IV .Q24H KEN; Protocol Stop: 08/31/24 22:48 Last Titration: 08/02/24 01:43 Dose: Infused Norepinephrine Bitartrate (Levophed In Ns 16mg/250ml) 16 mg in 250 mls @ 3.232 mls/hr IV .Q24H KEN; Protocol Stop: 09/01/24 01:29 Last Admin: 08/02/24 05:30 Dose: 0.35 mcg/kg/min, 22.623 mls/hr Piperacillin Sod/Tazobactam (Sod 4.5 gm/ Sodium Chloride) 100 mls @ 200 mls/hr IV Q6HR KEN Stop: 08/02/24 18:29 Last Infusion: 08/02/24 07:22 Dose: Infused Vancomycin/Sodium Chloride (Vancomycin/Ns 1 Gm Ivpb) 200 mls @ 120 mls/hr IV X1 ONE Stop: 08/02/24 12:09 Last Admin: 08/02/24 11:11 Dose: 120 mls/hr Acetaminophen (Ofirmev Inj) 1,000 mg in 100 mls @ 250 mls/hr IV X1 ONE Stop: 08/02/24 13:03 Pharmacy Consult (Vancomycin Pharmacy To Dose 1 Each Each) 1 each IV QDAY KEN Stop: 08/31/24 22:14 Last Admin: 08/01/24 23:15 Dose: Not Given Pharmacy Consult (Vancomycin Pharmacy To Dose 1 Each Each) 1 each IV QDAY PRN PRN Reason: CONSULT Stop: 09/01/24 08:59 Propofol (Propofol Inj 10 Mg/Ml Vial 20 Ml) 50 mg IV X1 ONE Stop: 08/01/24 23:38 Last Admin: 08/02/24 00:41 Dose: Not Given Propofol (Propofol Inj 10 Mg/Ml Vial 20 Ml) 20 mg IV X1 ONE Stop: 08/01/24 23:39 Last Admin: 08/02/24 00:41 Dose: Not Given Propofol (Propofol Inj 10 Mg/Ml Vial 20 Ml) 20 mg IV X1 ONE Stop: 08/01/24 23:39 Last Admin: 08/02/24 00:41 Dose: Not Given Rocuronium [place] (Rocuronium Inj 10 Mg/Ml Vial 10 Ml) 70 mg IVP X1 ONE Stop: 08/01/24 15:48 Last Admin: 08/01/24 18:55 Dose: Not Given Assessment & Plan Plan Jules Cabrera is an 84-year-old male with a complex past medical history of hypertension, hyperlipidemia, hypothyroidism, 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 Neurological #CVA secondary to air embolus versus ischemia Patient presented with left-sided deficits, which are incongruent with CT findings of air embolus on left side. Will follow-up on MRI to further evaluate for ischemic events. Teleneurology consulted and recommendations below. ? 100% oxygen as tolerated ? MRI brain ? Frequent neurochecks ? Pending speech therapy ? Pending physical therapy ? DVT prophylaxis ? A1c 4.8% ? Cholesterol 73, LDL 33, HDL 22, triglycerides 88 Cardiovascular #Shock, likely distributive versus cardiogenic versus hypovolemic Bedside echo done with Dr. Banda present on 08/02 showing small pericardial effusion, preserved EF, normally functioning prosthetic valve, and [place]et[place] showed CI of 3.8, making cardiogenic shock unlikely. Passive leg raise with Cheetah also did not demonstrate fluid responsiveness and already received 3 L NS in ED, making hypovolemic shock unlikely. CT A/P showed extensive air containing soft tissue in perineum with WBC of 55.9, and initial vitals showed HR of 111 and RR 22 but no fevers, which may be possible source of infection and shock. ? Levophed #STEMI EKG showed ST elevations in leads II, III, and aVF with uptrending troponins, most recent 1.06 from 0.94. Cardiology already consulted and saw patient and recommends heparin drip with plavix. ? Cardiology consulted, appreciate recommendations ? Heparin drip ? Plavix Pulmonary #Pneumothorax status post chest tube placement, resolved CXR on 08/01 showed 30% pneumothorax that has since resolved s/p chest tube placement ? Chest tube in place with suction Gastrointestinal #Transaminitis, continue to monitor Renal #Acute kidney injury Baseline creatinine 0.9, currently 1.4. Has bilateral nephrostomy tubes placed, at bedside currently hide total of 400 cc of urine. #Hypocalcemia ? Given 1 g calcium gluconate #Anion gap HCO3 of 15.6 with anion gap of 17.9 corrected for albumin. ABG showed pH 7.4, pCO2 33, pO2 158. Hematological #Normocytic anemia, chronic No active signs of bleeding ? Continue to monitor #Leukocytosis Likely secondary to soft tissue infection versus UTI ? See infectious disease below Endocine No active problems Infectious disease #? Soft tissue infection CT A/P and leukocytosis noted above in setting of shock requiring pressors. 2 cm, purple-colored bruise noted in perineum. ? Follow size and characteristics of bruise ? Zosyn, verified with pharmacy dosage appropriate ? Vancomycin, pharmacy to dose #Urinary tract infection UA showed turbid urine, 2+ protein, 3+ blood, 182 RBC, 192, WBC, 3+ bacteria, yeast present ? Zosyn and vancomycin as above Hospital management: Disposition: pending MRI, continues to be on pressors Pressors: levophed Sedation: none Fluids: not indicated Diet: NPO, did not pass swallow screen Lines: peripheral IV, bilateral nephrostomy tubes, chest tube on L chest DVT prophylaxis: heparin drip and plavix [place]: placed CODE STATUS: DNR ----- Plan discussed with attending physician Trung Blancas MD PGY-1 Internal Medicine
[2024-08-02 13:26] LABS: Cardiac Risk Estimate 3.3 RATIO (4.0-6.7); Cholesterol 73 mg/dL (132-200); HDL Cholesterol 22 mg/dL (40-60); LDL Cholesterol,Calculated 33 mg/dL (0-130); Triglycerides 88 mg/dL (30-150)
[2024-08-02] MEDS: HEPARIN SOD INJ 5000 UNIT/ML VIAL 4000 UNIT IV (13:40)
--- NOTE | 2024-08-02 13:48 | PD.IMPROG ---
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 Patient also had ST elevation in inferior leads with mild troponin elevation appears to be resolving. Does not complain of any chest pain or shortness of breath patient also did have significant 30% pneumothorax on left side requiring chest tube placement. Now in ICU critical condition but improving but neurologically no significant improvement cardiac bosch stable blood pressure still slightly low requiring norepinephrine vasopressor weaned off slowly. Bedside echo showed what appears to have a normally functioning prosthetic valve LVH preserved ejection fraction small pericardial effusion. Patient not complain of any chest pain appears to have pain in the kidney area possibly from sepsis patient does have severe white count elevation 40,000 up to 15,000 today clearly severe leukocytosis which is new. EKG showed evidence of atrial fibrillation some ST changes as well. Patient remains critical condition in ICU with multiple issues Exam Vital Signs Temp Pulse Resp BP Pulse Ox O2 Del Method O2 Flow Rate 98.6 F 99 18 119/62 100 Oxy Mask 15 08/02/24 11:00 08/02/24 11:30 08/02/24 11:30 08/02/24 11:30 08/02/24 11:30 08/02/24 11:00 08/02/24 11:00 Narrative Exam The patient is thin built elderly male alert awake in no acute distress on oxygen supplement saturating well Head is atraumatic normocephalic ENT normal Neck supple no significant JVD noted Chest symmetrical chest tube placed in the left side lungs good expansion Cardiovascular heart S1-S2 irregular no gallops no significant murmurs Abdomen thin and somewhat tender costophrenic angle otherwise unremarkable Extremities mild edema rectal not performed Neurologic exam showed the patient still has significant weakness left upper extremity 0 x 5 power left lower extremity 1 x 5 power severe hemiparesis speech is intact Objective Labs 08/02/24 04:45 08/02/24 04:45 Labs: Laboratory Results - last 24 hr 08/01/24 08/01/24 08/01/24 15:30 17:29 19:10 WBC 41.4 H* RBC 3.69 L Hgb 10.6 L Hct 32.4 L MCV 88 MCH 28.7 MCHC 32.7 RDW Std Deviation 46.0 H Plt Count 320 Neut % (Auto) 90 H Lymph % (Auto) 3 L [place] % (Auto) 6 Eos % (Auto) 0 Baso % (Auto) 0 Neut # (Auto) 37.1 H Lymph # (Auto) 1.1 [place] # (Auto) 2.6 H Eos # (Auto) 0.0 Baso # (Auto) 0.1 Immature Gran # (Auto) 0.59 H Absolute Nucleated RBC 0.00 Immature Gran % 1 H Nucleated RBC % 0 Smear Path Review Sent to Pathologist PT 13.1 H INR 1.2 APTT 29.1 VBG pH VBG pCO2 VBG pO2 VBG O2 Sat (Levy) VBG Base Excess Sodium 134 L Potassium 4.1 Chloride 99 Carbon Dioxide 24.0 Anion Gap 11 BUN 31 H Creatinine 1.4 H Estim Creat Clear Calc Not Performed. eGFR 49 L BUN/Creatinine Ratio 22 H Glucose [address] Glu mg/dL Hemoglobin A1c Calculated Osmolality 276 Lactic Acid 3.0 H 2.3 H Calcium 8.8 Corrected Calcium 9.1 Magnesium 1.9 Total Bilirubin 1.2 AST 22 ALT 11 Alkaline Phosphatase 165 H Troponin I 0.416 H* Total Protein 6.6 Albumin 3.6 Globulin 3.0 Albumin/Globulin Ratio 1.2 Triglycerides Cholesterol LDL Cholesterol, Calc HDL Cholesterol Cholesterol/HDL Ratio Procalcitonin 1.23 H Ur Collection Type Catheter Urine Color Yellow Urine Clarity Turbid A Urine pH 6.5 Ur Specific [place] 1.016 Urine Protein 2+ A Urine Glucose (UA) Negative Urine Ketones Negative Urine Blood 3+ A Urine Nitrite Negative Urine Bilirubin Negative Urine Urobilinogen (Auto) Negative Ur Leukocyte Esterase Positive Urine RBC 182 H Urine WBC 192 H Ur Squamous Epith Cells < 1 Urine Bacteria 3+ A Urine Yeast (Budding) Present A Random Vancomycin 08/01/24 08/02/24 08/02/24 22:30 01:52 04:45 WBC 55.9 H* D RBC 3.43 L Hgb 9.9 L Hct 30.6 L MCV 89 MCH 28.9 MCHC 32.4 RDW Std Deviation 47.4 H Plt Count 313 Neut % (Auto) 90 H Lymph % (Auto) 1 L [place] % (Auto) 5 Eos % (Auto) 1 Baso % (Auto) 0 Neut # (Auto) 50.3 H Lymph # (Auto) 0.6 L [place] # (Auto) 2.9 H Eos # (Auto) 0.3 Baso # (Auto) 0.1 Immature Gran # (Auto) 1.71 H Absolute Nucleated RBC 0.00 Immature Gran % 3 H Nucleated RBC % 0 Smear Path Review Cancelled PT INR APTT VBG pH 7.38 VBG pCO2 32 L VBG pO2 52 VBG O2 Sat (Levy) 82 L VBG Base Excess -6 L Sodium 140 Potassium 3.7 Chloride 110 H Carbon Dioxide 15.6 L Anion Gap 14 BUN 30 H Creatinine 1.4 H Estim Creat Clear Calc 36.9 L eGFR 49 L BUN/Creatinine Ratio 21 H Glucose [address] Glu mg/dL 91 Hemoglobin A1c 4.8 Calculated Osmolality 286 Lactic Acid 3.6 H 3.8 H 3.4 H Calcium 6.6 L* D Corrected Calcium 7.7 L Magnesium Total Bilirubin 0.6 D AST 40 H ALT 18 Alkaline Phosphatase 191 H D Troponin I 0.744 H* D 0.939 H* Total Protein Albumin Globulin Albumin/Globulin Ratio Triglycerides Cholesterol LDL Cholesterol, Calc HDL Cholesterol Cholesterol/HDL Ratio Procalcitonin Ur Collection Type Urine Color Urine Clarity Urine pH Ur Specific [place] Urine Protein Urine Glucose (UA) Urine Ketones Urine Blood Urine Nitrite Urine Bilirubin Urine Urobilinogen (Auto) Ur Leukocyte Esterase Urine RBC Urine WBC Ur Squamous Epith Cells Urine Bacteria Urine Yeast (Budding) Random Vancomycin 08/02/24 08/02/24 04:45 08:30 WBC RBC Hgb Hct MCV MCH MCHC RDW Std Deviation Plt Count Neut % (Auto) Lymph % (Auto) [place] % (Auto) Eos % (Auto) Baso % (Auto) Neut # (Auto) Lymph # (Auto) [place] # (Auto) Eos # (Auto) Baso # (Auto) Immature Gran # (Auto) Absolute Nucleated RBC Immature Gran % Nucleated RBC % Smear Path Review PT INR APTT VBG pH VBG pCO2 VBG pO2 VBG O2 Sat (Levy) VBG Base Excess Sodium Potassium Chloride Carbon Dioxide Anion Gap BUN Creatinine Estim Creat Clear Calc eGFR BUN/Creatinine Ratio Glucose Estimated Ave Glu mg/dL Hemoglobin A1c Calculated Osmolality Lactic Acid 3.6 H Calcium Corrected Calcium Magnesium Total Bilirubin AST ALT Alkaline Phosphatase Troponin I 1.060 H* Total Protein 5.0 L Albumin 2.6 L D Globulin 2.4 Albumin/Globulin Ratio 1.1 L Triglycerides 88 Cholesterol 73 L LDL Cholesterol, Calc 33 HDL Cholesterol 22 L Cholesterol/HDL Ratio 3.3 L Procalcitonin Ur Collection Type Urine Color Urine Clarity Urine pH Ur Specific [place] Urine Protein Urine Glucose (UA) Urine Ketones Urine Blood Urine Nitrite Urine Bilirubin Urine Urobilinogen (Auto) Ur Leukocyte Esterase Urine RBC Urine WBC Ur Squamous Epith Cells Urine Bacteria Urine Yeast (Budding) Random Vancomycin 7.1 ABG Interpretation ABG results: 08/01/24 22:30 VBG pH 7.38 VBG pCO2 32 L VBG pO2 52 VBG Base Excess -6 L Assessment & Plan Assessment and plan (1) Acute CVA (cerebrovascular accident): Status: Acute Assessment and plan: The patient clearly suffered a stroke involving the right hemisphere left-sided weakness most likely embolic stroke from A-fib but there is a question of air embolism which is quite puzzling if that is the case possibly require MRI scan. Patient did have [employer] [facility] pacemaker MRI compatible can have an MRI procedure. Also had TAVR procedure about 4 months ago patient can go ahead and have MRI as well no issues (2) Sepsis: Status: Acute Assessment and plan: Marked leukocytosis urosepsis nephrostomy tubes in place continue broad-spectrum antibiotic pending cultures (3) ST elevation (STEMI) myocardial infarction: Status: Acute Assessment and plan: The patient has significant ST elevation initially with inferior leads but improved on the monitor patient's troponin went up to 1.0 this could be also distress or embolic in nature continue heparin and Plavix. (4) Pneumothorax: Status: Acute Assessment and plan: Patient had 30% pneumothorax underwent chest tube placement good expansion (5) S/P TAVR (transcatheter aortic valve replacement): Status: Acute Assessment and plan: The patient underwent TAVR procedure January 2024 successfully no complications at that time pre-TAVR angiogram coronary arteries were normal (6) Status post cardiac pacemaker procedure: Status: Acute Assessment and plan: Pacemaker appears to be functioning well no sign of any infection with therapy (7) Septic shock: Status: Acute A&P Narrative The patient continues to be in critical condition with hypotension will recommend weaning off the norepinephrine gradually to 50 cc of bolus can be given fluid bosch condition remains critical prognosis guarded spent more than 50 minutes of critical care time. Time Spent With Patient Time: Total time spent is 50 min greater than 50% in coordination of care (as documented) at patient's floor/unit and/or counseling patient:
[2024-08-02] MEDS: Heparin/D5w 25K 250 ML Ivpb 25,000 UNIT/250 ML BAG 8.274 UNIT IV (13:53)
--- NOTE | 2024-08-02 13:53 | EKG_ITS ---
[facility] Test Date: 2024-08-03 Pat Name: SANTIAGO HEADLEY [facility] Male Director Of Food And Nutrition Services: SADI : 1940 Requested By: Latoya Parra Order Number: [id number] Reading MD: Latoya Parra Measurements Intervals [place] Rate: 117 P: NM: QRS: -81 QRSD: 125 T: 85 QT: 362 QTc: 506 Interpretive Statements ATRIAL FIBRILLATION WITH RAPID VENTRICULAR RESPONSE WITH ABERRANT CONDUCTION OR VENTRICULAR PREMATURE COMPLEXES MARKED LEFT AXIS DEVIATION RIGHT BUNDLE BRANCH BLOCK Compared to ECG 08/01/2024 16:09:44 Aberrant conduction of supraventricular beat(s) now present Ventricular premature complex(es) now present Left-axis deviation now present Left anterior fascicular block no longer present ST (T wave) deviation no longer present Myocardial infarct finding no longer present /[id number]/[id number].pdf
[2024-08-02] MEDS: CALCIUM GLUC/NS 1000MG IVPB 1,000 MG/50 ML BAG 50 MG IV (13:56)
[2024-08-02] MEDS: VANCOMYCIN/WATER 1250 MG IVPB 250 ML 120 MG IV (14:52)
[2024-08-02 15:24] LABS: Allen Test Not Performed; Base Excess -3 (-3-3); HCO3 21 mEq/L (20-26); Inspired O2, VO2 Liters 15 L/min; O2 Saturation 98 % (91-98); PCO2 33 mmHg (32.0-48.0); PO2 158 mmHg (83-108); Puncture Site Left Radial; pH, Arterial 7.41 (7.35-7.45)
[2024-08-02 20:37] LABS: Partial Thromboplastin Time 52.4 Seconds (22.0-36.0)
[2024-08-02 20:38] LABS: Troponin I 1.915 ng/mL (0.0-0.045)
[2024-08-02] MEDS: Norepinephrine/NS 16mg/250ml 16 MG/250 ML BAG 3.232 MG IV (22:09)
[2024-08-03] VITALS (98 sets, daily range): BP systolic 79–144; BP diastolic 43–88; PULSE 67–119; RESP 14–32; TEMP 36.2–36.9; O2SAT 82–100; BMI 19.5
[2024-08-03 01:34] LABS: Troponin I 2.112 ng/mL (0.0-0.045)
[2024-08-03 01:59] LABS: Partial Thromboplastin Time 47.9 Seconds (22.0-36.0)
[2024-08-03] MEDS: HEPARIN SOD INJ 5000 UNIT/ML VIAL 2000 UNIT IV (02:19)
[2024-08-03 05:56] LABS: Basophils # (Auto) 0.1 Thou/mm3 (0.0-0.2); Basophils % (Auto) 0 % (0-2.5); Eosinophils # (Auto) 0.1 Thou/mm3 (0.0-0.5); Eosinophils % (Auto) 0 % (0-10); Hemoglobin 9.7 g/dL (13.5-16.0); Immature Granulocytes % (Auto) 1 % (0-0); Immature Granulocytes Auto 0.39 Thou/mm3 (0.00-0.00); Lymphocytes # (Auto) 0.8 Thou/mm3 (1.0-4.8); Lymphocytes % (Auto) 2 % (10-50); Mean Corpuscular HGB Conc 32.3 g/dl (31.0-37.0); Mean Corpuscular Hemoglobin 28.6 pg (25.0-35.0); Mean Corpuscular Volume 89 fL (80-100); Monocytes # (Auto) 2.4 Thou/mm3 (0.0-0.8); Monocytes % (Auto) 6 % (0-12); Neutrophils # (Auto) 35.2 Thou/mm3 (1.8-7.7); Neutrophils % (Auto) 90 % (37-80); Nucleated Red Blood Cell % 0 /100 WBC (0); Platelet Count 257 Thou/mm3 (140-440); RDW Standard Deviation 47.8 fL (35.1-43.9); Red Blood Count 3.39 Miln/mm3 (4.50-5.90)
[2024-08-03 06:05] LABS: White Blood Count 39.1 Thou/mm3 (3.8-10.6)
[2024-08-03 06:35] LABS: Alanine Aminotransferase 22 U/L (10-49); Albumin, Serum 3.1 gm/dL (3.4-4.8); Albumin/Globulin Ratio 1.1 (1.2-2.2); Alkaline Phosphatase 214 U/L (46-116); Anion Gap 15 (7-16); Aspartate Amino Transferase 46 U/L (0-34); BUN/Creatinine Ratio 25 Ratio (12-20); Bilirubin,Total 0.5 mg/dL (0.3-1.2); Blood Urea Nitrogen 43 mg/dL (9-23); Calcium (Corrected) 8.7 mg/dL (8.5-10.1); Carbon Dioxide 20.3 mMol/L (20.0-31.0); Chloride 105 mMol/L (98-107); Creatinine (Component) 1.7 mg/dL (0.6-1.3); Estimated Creatinine Clearance 30.4 mL/min (>60); Globulin 2.7 gm/dL (2.3-3.5); Glucose 90 mg/dL (74-106); Osmolality,Calculated 290 (275-295); Sodium 140 mMol/L (136-145); Thyroid Stimulating Hormone 16.73 uIU/mL (0.55-4.78); Total Protein 5.8 gm/dL (5.7-8.2); eGFR 39 See Note
[2024-08-03 09:58] LABS: Free T4 (Free Thyroxine) 0.71 ng/dL (0.89-1.76); Magnesium 1.9 mg/dL (1.6-2.6)
[2024-08-03 10:08] LABS: Partial Thromboplastin Time 58.6 Seconds (22.0-36.0)
--- NOTE | 2024-08-03 10:17 | XR_ITS ---
Examination: AP chest single view Technique one AP portable upright chest single view Exam date and time: August 03, 2024 1031 hours COMPARISON: August 01, 2024 INDICATIONS: History left pneumothorax, post chest tube placement FINDINGS: Left chest tube satisfactory position Satisfactory expansion both lungs Bibasilar opacity consistent with pneumonia Aortic valve replacement Cardiac leads satisfactory position Moderate vascular congestion IMPRESSION: Left chest tube satisfactory position with full expansion both lungs
--- NOTE | 2024-08-03 10:29 | PCS.ST ---
Swallow Evaluation completed. See report for details. S/S of laryngeal penetration with ice chips and tsp of puree. Pharyngeal dysphagia. Not safe for PO at this time. ST will follow
--- NOTE | 2024-08-03 11:40 | PC.PT ---
Patient is not medically stable today to do Physical Therapy. Will attempt PT eval tomorrow.
--- NOTE | 2024-08-03 12:08 | XR_ITS ---
Examination: CT brain head without contrast. 2-D sagittal coronal reconstructions Exam date and time: August 03 2024 9:29 AM INDICATIONS: History pneumocephalus CTDI: vol (mGy):50.1 DLP: (mGycm):1133 Technique: Multiple CT axial sections of the brain have been obtained, 5 mm slice thickness. Contrast has not been administered. 2-D sagittal, coronal reconstructions have been obtained Low dose protocols were performed. One or more of the following dose reduction techniques were used; automated exposure control, adjustment of the mA and/or KV according to patient size, use of iterative reconstruction technique. Findings: No significant ventricular enlargement. Intra-axial or extra-axial hemorrhage density is not seen. No mass effect or midline shift Basal cisterns are not remarkable. Fourth ventricle is midline. Cranial vault intact. Impression: Negative for acute hemorrhage, mass effect or midline shift Subtle low-density in the left posterior parietal lobe image 12 measuring 18 mm Suggest continued short-term follow-up CT brain scan
[2024-08-03] MEDS: POTASSIUM CHL 10 mEq IVPB 10 MEQ/100 ML BAG 100 MEQ IV (12:19)
--- NOTE | 2024-08-03 13:30 | PD.IMCONS ---
HPI Data of Consult Consult date: 08/03/24 Requesting Physician: Dr. 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 After patient was recently discharged from [facility] 2 days ago prior to admission after recent pacemaker implantation, atrial flutter ablation as well as a bilateral nephrostomy tube placement as noted above. Of note patient was off anticoagulation for all the above 3 procedures over the past week. In the emergency department patient was found to have severe left-sided weakness patient was thought to have acute right-sided stroke. 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 Teleneurology was consulted patient admitted for further evaluation of the stroke. Patient was also noted to have a left-sided pneumothorax of 30% for which surgery was consulted and chest tubes were placed. EKG did show ST elevation in the inferior lateral leads II, III, aVF which is new finding. His initial vital signs were normal with blood pressure of 110/71 heart rate of 74/min and saturations were normal. Patient did have pulmonary congestion after the chest tube insertion. Cardiac alert was called but STEMI was canceled by them at [facility] as the patient did have normal coronaries 6 months ago. Patient also had significant troponin elevation 0.[address] Banda was consulted and an impression was possible emboli occluding the right coronary artery from his atrial fibrillation. I was consulted today by ICU and Dr. Banda for the stroke and evaluate for a SREEKANTH to rule out PFO, ASD or LA or LA thrombus as etiology for the stroke. cc:: cc: Ilda Arango MD Review of Systems Review of Systems Systems Reviewed: All systems reviewed, normal except as documented Past Medical History Past Medical History NEUROLOGIC: Positive Neurological Disorders and Transient Ischemic Attacks (TIA) CARDIAC: Positive Cardiac Disorders, Atrial Fibrillation, Hypercholesterolemia, Valvular Heart Disease and Hypertension GASTROINTESTINAL: Positive Gastrointestinal Disorders (persistent diarrhea) GENITOURINARY: Positive Genitourinary Disorders (urinary frequency) and Prostate Cancer MUSCULOSKELETAL: Positive Musculoskeletal Disorders, Arthritis and Carpal Tunnel Syndrome (right) ENT: Positive Cataracts (right) ENDOCRINE: Positive Endocrine Disorders and Hypothyroidism OTHER HISTORY: Positive Radiation Therapy (radiation seeds placed for prostate CA 2009), Chicken Pox, Measles, Cancer and Prostate Cancer Surgical History SURGICAL: Positive Cardiac Surgery, Valve Replacement, Transurethral Resection (prostatectomy) and Arthroscopy (right knee) Social History SMOKING STATUS: Never smoker Travel History EBOLA RISK: No Meds Home Medications and Allergies Home Medications ?Medication ?Instructions ?Recorded ?Confirmed ?Type rosuvastatin 20 mg tablet (Crestor) 20 mg PO HS #0 tabs 03/31/16 08/03/24 History amlodipine 5 mg tablet 5 mg PO PRN PRN Blood Pressure 09/02/18 08/03/24 History levothyroxine 88 mcg tablet 88 mcg PO QDAY 09/02/18 08/03/24 History apixaban 5 mg tablet (Eliquis) 2.5 mg PO BID 11/11/23 08/03/24 History clopidogrel 75 mg tablet 75 mg PO DAILY 03/13/24 08/03/24 History dicyclomine 10 mg capsule 10 mg PO BID 03/13/24 08/03/24 History amiodarone 200 mg tablet 400 mg PO QDAY 08/03/24 08/03/24 History cholecalciferol (vitamin D3) 125 5,000 unit PO QDAY 08/03/24 08/03/24 History mcg (5,000 unit) tablet metoprolol succinate 50 mg 25 mg PO BID 08/03/24 08/03/24 History tablet,extended release 24 hr Allergies Allergy/AdvReac Type Severity Reaction Status Date / Time No Known Allergies Allergy Verified 05/26/24 11:44 Exam Vital Signs Temp Pulse Resp BP Pulse Ox O2 Del Method O2 Flow Rate 97.2 F 91 19 112/62 93 L Oxy Mask 15 08/03/24 16:00 08/03/24 23:15 08/03/24 23:15 08/03/24 23:15 08/03/24 23:15 08/02/24 16:00 08/03/24 19:00 Narrative Exam General: Alert and oriented x3. In mild respiratory distress lungs on Ventimask. Appears to be under nourished more than cachectic. Eyes: Pupils are equal and reactive to light bilaterally. HEENT: Atraumatic, normocephalic. No JVD noted. Dry oral mucosa Cardiovascular: S1-S2 present, irregularly irregular rhythm, 2 or 6 systolic murmur at the apex, trace peripheral edema. Respiratory: In minimal to mild respiratory distress on Ventimask, bilateral air entry present and decreased at both the bases. No wheezing or crackles. Chest appears better shift Abdomen: Soft, nontender, nondistended. Skin: No rash. Warm to touch. Musculoskeletal: No gross injuries. Able to move all 4 extremities. Neuro: Alert and oriented x3. Left-sided hemiparesis with 0/5 power in the left upper extremity and 1 out of 5 power in the left lower extremity. Results Labs 08/03/24 04:47 08/03/24 14:03 Labs: Short CBC 08/03/24 Range/Units 04:47 WBC 39.1 H* D (3.8-10.6) Thou/mm3 Hgb 9.7 L (13.5-16.0) g/dL Hct 30.0 L (41.0-53.0) % Plt Count 257 D (140-440) Thou/mm3 BMP 08/03/24 08/03/24 04:47 14:03 Sodium 140 141 Potassium 3.0 L D 3.6 D Chloride 105 107 Carbon Dioxide 20.3 21.9 BUN 43 H 44 H Creatinine 1.7 H 1.5 H Glucose 90 90 Calcium 8.0 L 8.1 L Cardiac Enzymes 08/03/24 08/03/24 08/03/24 Range/Units 00:54 14:03 20:35 Troponin I 2.112 H* 1.577 H* D 1.695 H* (0.0-0.045) ng/mL Liver Function 08/03/24 08/03/24 Range/Units 04:47 14:03 Total Bilirubin 0.5 0.6 (0.3-1.2) mg/dL AST 46 H 49 H (0-34) U/L ALT 22 15 (10-49) U/L Alkaline Phosphatase 214 H D 251 H D (46-116) U/L Albumin 3.1 L D 3.2 L (3.4-4.8) gm/dL ABG Interpretation ABG results: 08/01/24 08/02/24 22:30 15:08 ABG pH 7.41 ABG pCO2 33 ABG pO2 158 H ABG HCO3 21 ABG O2 Saturation 98 ABG Base Excess -3 VBG pH 7.38 VBG pCO2 32 L VBG pO2 52 VBG Base Excess -6 L Assessment and Plan Additional Assessment & Plan Additional Plan: A 84-year-old male with a complex past medical history with multiple comorbidities including severe aortic stenosis status post TAVR?2023 with 26 mm Devlin valve, normal coronaries by cardiac cath in December 2023, paroxysmal atrial fibrillation/flutter status post tricuspid isthmus ablation 07/29/2024, 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 Patient admitted to the ICU for an acute right-sided stroke with left hemiparesis with question of air embolism, left-sided pneumothorax status post chest tubes as well as STEMI and severe sepsis. I was consulted today by ICU and Dr. Banda for the stroke and evaluate for a SREEKANTH to rule out PFO, ASD as well as LA or LA thrombus as etiology for the stroke. 1. Acute stroke with left hemiparesis indicating possible right-sided stroke and question of air embolism 2. Septic shock in the setting of possible sepsis secondary to urinary tract infection with recent respiratory stent placement 3. Left-sided pneumothorax status post chest tube 4. Acute STEMI but being managed conservatively for now and his last cardiac cath in December 2023 showed normal coronaries prior to TAVR 5. Paroxysmal atrial fibrillation/flutter status post restenosis tricuspid ablation 07/29/2024 6. 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 7. Severe aortic stenosis status post TAVR in January 2024 with 26 mm Devlin valve 8. CKD stage III 9. Essential hypertension 10. Hyperlipidemia 11. Hydronephrosis status post bilateral percutaneous nephrostomy tube placement on 07/23/2024 12. Hyperlipidemia I reviewed the chart in detail and reviewed the CT head that the patient and patient does have questionable air embolism. Most of this air embolism lesions appear to be on the left parietal sulci but his weakness on the left side and do not correlate well. Upon measuring the Hounsfield units of the lesions they appear to be at -60 to -100 HU rather than -1000 HU which would be more consistent with air embolism and could be artifacts. Primary team is planning to do an MRI or a repeat CT head to reevaluate them. If a repeat CT is performed then would request radiology to report the hounsfield units for the suspected air embolism. Other possibility that patient did have air embolism with recent nephrostomy tube placement as well as other cardiac procedures that were done recently and iatrogenic air embolism is ib differential but patient should have a PFO or any ASD to substantiate the presence of air emboli in the brain. Less likely from the ablation as the patient did not involve any kind of pulmonary veins which could also cause air embolism without a PFO or an ASD. Other differential that could be considered is severe sepsis from certain strains of gas producing Klebsiella pneumonia. Of note as noted in the HPI patient is off anticoagulation for more than a week given the recent procedures including atrial fibrillation ablation, pacemaker placement as well as bilateral nephrostomy tubes. And given the entire clinical picture his history of chronic atrial fibrillation and the patient was A-fib on admission patient most likley had left atrial appendage thrombus which could have formed due to his lack of anticoagulation and embolized to cerebral circulation causing the left hemiparesis and also possible embolic occlusion of the coronary arteries which could account for the ST elevations. Recommend to continue with heparin drip, aspirin, statin if LFTs normal. No beta-earl given the low blood pressure. Amiodarone bolus and drip if pt in RVR. Conservative management for the STEMI as suggested by Dr. Banda. As described above patient has multiple reasons to evaluate further for a cardiac source of stroke including to rule out a PFO or an ASD and also in LA appendage thrombus. Appropriate indication for the SREEKANTH. Patient denies any kind of swallowing problems or any kind of esophageal interventions or previous surgeries. Patient reported that he did have previous EGDs. Patient denies any kind of gastric ulcers bleeding and any other hematemesis or hematochezia recently. Patient denies any issues with anesthesia previously. Patient is DNR/DNI but is willing to undergo the SREEKANTH procedure. Patient did not do well with the swallow study but was able to take liquids and this denies any problems with swallowing previously. Patient respiratory status is tenuous given the left pneumothorax status post chest tube and he continues to be on Ventimask. Patient still did not want to be intubated in case of any further respiratory failure and explained him with all the risk of benefits for the procedure including respiratory arrest secondary to the anesthesia. Patient explained all the risks, benefits and alternatives of SREEKANTH including the risk of perforation, bleeding, respiratory failure secondary to sedation, injury to teeth gums esophagus and stomach. Patient understands all risks and benefits and provided consent for the procedure. We will keep him n.p.o. this afternoon and plan to do the SREEKANTH caultiously this evening as he is high risk for the procedure. There is a high probability of sudden, clinically significant or life threatening deterioration in the patient condition which required the highest level of physician preparedness to intervene urgently. I have personally spent 65 minutes of critical care time, exclusive of time spent on any procedures, in evaluation and management of this critically ill patient. Management of rest of the medical conditions as per primary team and other consultants. Thank you for the consult and allowing me to participate in the care of the patient. Cardiology will continue to follow. Vasquez Arias M.D. Interventional Cardiology
--- NOTE | 2024-08-03 14:37 | ESPR_ITS ---
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 At bedside, patient cannot recall events leading up to hospitalization, therefore details obtained from chart review. Apparently patient presented with left-sided weakness in addition to his altered mental status so stroke was called. Teleneurology evaluated patient but cannot assess NIHSS and unable to determine last known well and so patient was not a candidate for TNK. However, CT head was negative for acute hemorrhage but did show air embolism and recommended to continue Trendelenburg position, 100% O2, and obtain MRI brain. Additionally, EKG showed ST elevations in leads II, III, and aVF as well as troponin of 0.4 and so heart alert was called and cardiology was consulted. Recommended to be judicious with IVF and start heparin drip with Plavix. CXR also showed 30% left apical/lateral pneumothorax and is status post chest tube placement with repeat CXR showing reexpansion of left lung. In ED, blood pressure noted to be as low as 57/45 and was started on Levophed. Of note, attempts were made to transfer to [facility] given multiple recent procedures that were done there but was declined given that patient was not a candidate for PCI. 08/03/23: Overnight, no acute events reported. Patient had a total urine output of 1235 mL. Patient continues to be on 15 L mask. His leukocytosis significantly improved to 39 today. Patient's potassium was low, continue IV potassium 10 mill equivalents, repeat potassium improved to 3.6. Patient is scheduled to have a SREEKANTH today with cardiology, and after will have CT head due to patient's change in mentation. Patient does appear more lethargic than yesterday, and is A&O x 1. Troponin max was 2.1, down trended today to 1.57. Patient continues to endorse right upper extremity weakness. Patient's chest x- ray suggest little to no pneumothorax, and will change low suction to waterseal. Will order repeat chest x-ray in the morning. Since patient failed bedside swallow, patient is unable to take most of patient's p.o. meds including amiodarone. Patient evidently went back into atrial fibrillation, with rate uncontrolled into the 120s. Cardiology recommended to start IV amiodarone including bolus. Exam Vital Signs Temp Pulse Resp BP Pulse Ox O2 Del Method O2 Flow Rate 97.7 F 111 H 19 105/56 L 100 Oxy Mask 15 08/03/24 12:00 08/03/24 13:00 08/03/24 13:00 08/03/24 13:00 08/03/24 13:00 08/02/24 16:00 08/02/24 19:00 Narrative Exam General Appearance: Elderly, frail male alert and oriented to name, answers most questions and follows commands. HEENT: NC/AT, no scleral icterus, conjunctival pallor, pupils equal and reactive to light, dry mucous membranes with oral secretions noted on oxy mask Lungs: Patient noted to have crackles left upper lobe CVS: Irregularly, irregular, tachycardic S1/S2 heard, no murmurs or rubs appreciated ABD: Soft, non-tender, non-distended, BS + in all 4 quadrants EXT: No lower extremity edema SKIN: Skin exam normal without any rashes except for 3 cm necrotic lesion noted in perineum with induration. Erythematous round surrounding necrotic lesion from sacrum to medial thighs Neuro: A&O x 1 to name. GCS 15. Sensory grossly intact in B/L UL and LL. Motor strength in left upper extremity 1 out of 5, 3/5 left lower extremity, 4+ out of 5 right upper extremity and lower extremity Psych: Appropriate mood and affect Objective Labs 08/03/24 04:47 08/03/24 14:03 Labs: Laboratory Results - last 24 hr 08/02/24 08/02/24 08/03/24 15:08 19:53 00:54 WBC RBC Hgb Hct MCV MCH MCHC RDW Std Deviation Plt Count Neut % (Auto) Lymph % (Auto) [place] % (Auto) Eos % (Auto) Baso % (Auto) Neut # (Auto) Lymph # (Auto) [place] # (Auto) Eos # (Auto) Baso # (Auto) Immature Gran # (Auto) Absolute Nucleated RBC Immature Gran % Nucleated RBC % Smear Path Review APTT 52.4 H D 47.9 H Puncture Site Left Radial ABG pH 7.41 ABG pCO2 33 ABG pO2 158 H ABG HCO3 21 ABG O2 Saturation 98 ABG Base Excess -3 Oxygen Liter Flow 15 Sodium Potassium Chloride Carbon Dioxide Anion Gap BUN Creatinine Estim Creat Clear Calc eGFR BUN/Creatinine Ratio Glucose Calculated Osmolality Calcium Corrected Calcium Magnesium Total Bilirubin AST ALT Alkaline Phosphatase Troponin I 1.915 H* D 2.112 H* Total Protein Albumin Globulin Albumin/Globulin Ratio TSH Free T4 08/03/24 08/03/24 04:47 08:56 WBC 39.1 H* D RBC 3.39 L Hgb 9.7 L Hct 30.0 L MCV 89 MCH 28.6 MCHC 32.3 RDW Std Deviation 47.8 H Plt Count 257 D Neut % (Auto) 90 H Lymph % (Auto) 2 L [place] % (Auto) 6 Eos % (Auto) 0 Baso % (Auto) 0 Neut # (Auto) 35.2 H Lymph # (Auto) 0.8 L [place] # (Auto) 2.4 H Eos # (Auto) 0.1 Baso # (Auto) 0.1 Immature Gran # (Auto) 0.39 H Absolute Nucleated RBC 0.00 Immature Gran % 1 H Nucleated RBC % 0 Smear Path Review APTT 58.6 H D Puncture Site ABG pH ABG pCO2 ABG pO2 ABG HCO3 ABG O2 Saturation ABG Base Excess Oxygen Liter Flow Sodium 140 Potassium 3.0 L D Chloride 105 Carbon Dioxide 20.3 Anion Gap 15 BUN 43 H Creatinine 1.7 H Estim Creat Clear Calc 30.4 L eGFR 39 L BUN/Creatinine Ratio 25 H Glucose 90 Calculated Osmolality 290 Calcium 8.0 L Corrected Calcium 8.7 Magnesium 1.9 Total Bilirubin 0.5 AST 46 H ALT 22 Alkaline Phosphatase 214 H D Troponin I Total Protein 5.8 Albumin 3.1 L D Globulin 2.7 Albumin/Globulin Ratio 1.1 L TSH 16.73 H Free T4 0.71 L ABG Interpretation ABG results: 08/01/24 08/02/24 22:30 15:08 ABG pH 7.41 ABG pCO2 33 ABG pO2 158 H ABG HCO3 21 ABG O2 Saturation 98 ABG Base Excess -3 VBG pH 7.38 VBG pCO2 32 L VBG pO2 52 VBG Base Excess -6 L Quality Measures Quality Measures stroke Suspected type of Stroke: Unknown at this time Last known well (date): 08/01/24 Last known well (time): 14:30 Tenecteplase given: Reason(s) Tenecteplase not given: Unable to determine eligibility (Head CT shows air emboli/pneumocephaly) not given Rehab services: PT evaluation ordered and Speech Language Pathology eval ordered VTE Prophylaxis: pharmaceutical Antithrombotic by day 2:: ordered Statin ordered: >75 y/o moderate or high intensity dose Anticoagulation ordered for A-fib or flutter (current or hx): ordered Advance care planning discussed with:: patient and spouse Assessment & Plan Assessment Current Active Medications: Generic Name Dose Route Start Last Admin Trade Name Freq PRN Reason Stop Dose Admin Acetaminophen 650 mg 08/02/24 10:45 Acetaminophen 325 Mg Tablet PO 09/01/24 10:44 Q4HR PRN PAIN SCALE 1-3 (mild Acetaminophen 650 mg 08/02/24 10:45 Acetaminophen Supp 650 Mg Supp MA 09/01/24 10:44 Q4HR PRN PAIN SCALE 1-3 (mild Al Hydrox/Mg Hydrox/Simethicone 30 ml 08/02/24 10:45 Mg Hyd/Al Hyd/Kelsey (Maalox Reg) Susp 30 Ml Udc PO 09/01/24 10:44 Q4HR PRN Heartburn or Upset Stomach Atorvastatin Calcium 40 mg 08/02/24 21:00 08/02/24 22:48 Atorvastatin Calcium 20 Mg Tablet PO 09/01/24 20:59 Not Given HS KEN Clopidogrel Bisulfate 75 mg 08/02/24 15:15 08/03/24 08:52 Clopidogrel Bisulfate 75 Mg Tablet PO 09/01/24 15:14 Not Given QDAY KEN Piperacillin/Tazobactam/Dextrose 50 mls @ 12.5 mls/hr 08/03/24 14:00 Zosyn IV 08/10/24 13:59 Q8HR KEN Protocol Norepinephrine Bitartrate 16 mg in 250 mls @ 3.232 mls/hr 08/02/24 07:00 08/03/24 11:45 Levophed In Ns 16mg/250ml IV 09/01/24 06:59 0 mcg/kg/min .Q24H PRN 0 mls/hr PER PROTOCOL Titration Protocol 0.05 MCG/KG/MIN Heparin Sodium/Dextrose 25,000 unit in 250 mls @ 8.274 mls/hr 08/02/24 12:45 08/03/24 02:20 Heparin In D5w Ivpb IV 08/16/24 12:44 14 units/kg/hr .Q24H KEN 9.652 mls/hr Titration Protocol 12 UNITS/KG/HR Vancomycin HCl 250 mls @ 120 mls/hr 08/02/24 14:00 08/02/24 14:52 Vancomycin/Water 1250 Mg Ivpb IV 08/09/24 13:59 120 mls/hr QDAY@1400 KEN Administration Magnesium Hydroxide 30 ml 08/02/24 10:45 Milk Of Magnesia Susp 30 Ml Udc PO 09/01/24 10:44 QDAY PRN CONSTIPATION Nitroglycerin 0.4 mg 08/02/24 10:45 Nitroglycerin 0.4 Mg Subl Btl #25 SL Q5MIN PRN CHEST PAIN Ondansetron HCl 4 mg 08/02/24 11:15 Ondansetron Inj 2 Mg/Ml Inj 2 Ml IV 09/01/24 11:14 Q8HR PRN NAUSEA OR VOMITING Pharmacy Consult 1 each 08/03/24 09:00 Pharmacy Renal Dose Adjustment 1 Ea XX 09/02/24 08:59 QDAY PRN PROTOCOL Pharmacy Consult 1 each 08/03/24 09:00 Vancomycin Pharmacy To Dose 1 Each Each IV 09/02/24 08:59 QDAY PRN PROTOCOL Plan Jules Cabrera is an 84-year-old male with a complex past medical history of hypertension, hyperlipidemia, hypothyroidism, 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 Neurological #Pneumocephalus CT findings consistent with air embolus on left side. -Continue with 100% FiO2 via oxymask #CVA secondary to air embolus versus ischemia Patient presented with left-sided deficits. Tele-neuro consulted and recommended stroke management workup. Patient is A&O x 1. Cholesterol 73, LDL 33, HDL 22, triglycerides 88 A1c 4.8% ? MRI brain, however will get head CT for now to assess for current lethargic state ? Q4 neurochecks ? Failed Speech therapy, will f/u tmw ? Pending physical therapy ? DVT prophylaxis with heparin gtt - SREEKANTH scheduled for today to assess possible embolic source Cardiovascular #STEMI #Elevated Troponin-resolving #Hx of Pacemaker #Hx of TAVR EKG showed ST elevations in leads II, III, and aVF with uptrending troponins, most recent 1.06 from 0.94. Cardiology already consulted and saw patient and recommends heparin drip with plavix. Troponin max was 2.1, and downtrending. ? Cardiology consulted, appreciate recommendations ? Heparin drip ? Plavix, Asa, and Atorvastatin - SREEKANTH for later in evening #Shock, likely distributive Bedside echo done with Dr. Banda present on 08/02 showing small pericardial effusion, preserved EF, normally functioning prosthetic valve, and Cheetah showed CI of 3.8, making cardiogenic shock unlikely. Passive leg raise with Cheetah also did not demonstrate fluid responsiveness and already received 3 L NS in ED, making hypovolemic shock unlikely. CT A/P showed extensive air containing soft tissue in perineum with WBC of 55.9, and initial vitals showed HR of 111 and RR 22 but no fevers, which may be possible source of infection and shock. Most liklely septic in nature due to possible source from soft tissue infection from perineum and UTI ? Levophed gtt requirements downtrending #Atrial Fibrillation with RVR Patient is back to irregularly irregular rhythm despite pacemaker and aflutter ablation -cardiology recommended starting patient on IV Amiodarone bolus and maintenance as patient is unable to take home PO amio -Heparin gtt -SREEKANTH later in evening to r/o embolic source Pulmonary #Pneumothorax status post chest tube placement, resolving CXR on 08/01 showed 30% pneumothorax that has since resolved s/p chest tube placement. PTX in setting of recent complication of a possible air pocket forming while placing pacemaker recently ? Chest tube in place with low suction to water seal - F/u repeat CXR, and plans to clamp and DC chest tube possibly tmw Gastrointestinal #Transaminitis -continue to monitor Renal #Acute kidney injury DDx: pre-renal vs ATN; patient is making adequate urine output, at least 50cc/hr/kg Baseline creatinine 0.9, currently 1.4. Has bilateral nephrostomy tubes placed. -Monitor I's/O's -Avoid Nephrotoxin agents and renally dose medications #Acidosis - improving Initial HCO3 of 15.6 with anion gap of 17.9 corrected for albumin. ABG showed pH 7.4, pCO2 33, pO2 158. #Electrolyte Imbalance #Hypocalcemia-improving #Hypokalemia ? Given 1 g calcium gluconate yesterday - Gave 10mEq of IV K+, repeat CMP showed improvement in K+ Hematological #Normocytic anemia, chronic No active signs of bleeding ? Continue to monitor - on DVT prophylaxis with heparin gtt #Leukocytosis-resolved Likely secondary to sepsis in the setting of soft tissue infection and UTI Less likely to be infection from b/l nephrostomy tube placement or chest pneumothorax placement ? See infectious disease below Endocine #Hypothyroidism TSH elevated, and free T4 are low, consistent with hypothyroidism -Restart low dose levothyoxrine after patient passes bedside swallow Infectious disease #Sepsis #Soft tissue infection DDx: most likely cellulitis of perineum, less likely to be erythematous rash as induration noted accompanied with 3cm necrotic lesion in center of perineum CT A/P and leukocytosis noted above in setting of shock requiring pressors. ? Follow size and characteristics of bruise ? Zosyn and Vancomycin ? F/u with MRSA swab and cultures - Surgery consulted, and recommended possible intervention with debridement when more stable for further source control #Urinary tract infection UA showed turbid urine, 2+ protein, 3+ blood, 182 RBC, 192, WBC, 3+ bacteria, yeast present ? Zosyn and vancomycin as above - Consider removing sen prior to discharge Hospital management: Disposition: pending MRI, continues to be on pressors, planning for SREEKANTH today Pressors: levophed Sedation: none Fluids: not indicated Diet: NPO, did not pass swallow screen Lines: peripheral IV, bilateral nephrostomy tubes, chest tube on L chest set to water seal DVT prophylaxis: heparin drip and plavix Sen: placed CODE STATUS: DNR Plan discussed with attending physician, Dr. Nba Bazan, PGY-2
[2024-08-03] MEDS: PIPER/TAZO 3.375 GM 50 ML IV ×2 (14:45→23:00)
[2024-08-03 15:09] LABS: Vancomycin,Trough 18.1 mcg/mL (5.0-10.0)
[2024-08-03 15:13] LABS: Alanine Aminotransferase 15 U/L (10-49); Albumin, Serum 3.2 gm/dL (3.4-4.8); Albumin/Globulin Ratio 1.2 (1.2-2.2); Alkaline Phosphatase 251 U/L (46-116); Anion Gap 12 (7-16); Aspartate Amino Transferase 49 U/L (0-34); BUN/Creatinine Ratio 29 Ratio (12-20); Bilirubin,Total 0.6 mg/dL (0.3-1.2); Blood Urea Nitrogen 44 mg/dL (9-23); Calcium 8.1 mg/dL (8.3-10.6); Calcium (Corrected) 8.7 mg/dL (8.5-10.1); Carbon Dioxide 21.9 mMol/L (20.0-31.0); Chloride 107 mMol/L (98-107); Creatinine (Component) 1.5 mg/dL (0.6-1.3); Estimated Creatinine Clearance 34.5 mL/min (>60); Globulin 2.7 gm/dL (2.3-3.5); Glucose 90 mg/dL (74-106); Osmolality,Calculated 292 (275-295); Potassium 3.6 mMol/L (3.4-5.1); Sodium 141 mMol/L (136-145); Total Protein 5.9 gm/dL (5.7-8.2); eGFR 45 See Note
[2024-08-03 15:14] LABS: Troponin I 1.577 ng/mL (0.0-0.045)
[2024-08-03] MEDS: AMIODARONE 150 MG IVPB 150 MG/100 ML BAG 600 MG IV (15:24)
[2024-08-03] MEDS: AMIODARONE 360 MG IVPB 360 MG/200 ML BAG 33.333 MG IV (15:39)
[2024-08-03] MEDS: Heparin/D5w 25K 250 ML Ivpb 25,000 UNIT/250 ML BAG 9.652 UNIT IV (17:31)
--- NOTE | 2024-08-03 17:49 | ESPR_ITS ---
Documentation for date of: 08/03/24 Subjective Subjective Interval history: This is a 84yo M with a complex recent medical history. Most of his care is obtained at where he was DCd 48hr prior to arrival at [facility] ER. He is a poor historian and a lot of details are obtained from chart review. Apparently he developed AMS and L sided weakness reason for which he was brought into the ER yesterday. A stroke alert was called and pneumocephalus was noted. An EKG was obtained and ST elevations were noted at which point cardiology was consulted. When the case was d/w interventional cards from they stated that he had a recent cath in january of last year which did not show significant CAD and therefore he was declined. pt had a WBC >40k and a CT chest/abd/pelvis was obtained with air density noted in the perineal area as well as femoral vein bilaterally and a pneumothorax. A chest tube was placed and surgical eval was requested for SSTI with gas. Surgery did not feel pt required any surgical intervention. attempts were made to transfer for postop complications from [facility] however [facility] declined transfer. ICU was contacted for eval. During this time the pts pressure dropped and he was started on levophed in the ER. pt himself was able to hold a discussion and notes weakness in his L but denies pain other than his nose where the mask was placed. He is able to state his name and where he is and knows its the weekend. I discussed with him the potential need for any intubation or CPR and he states that he does not want to be intubated and hooked up to life support nor does he wish CPR. The ER held a similar discussion with the same results. Given this the pt is accepted to ICU here at [facility]. 2/3- no acute overnight events, decrease in levo needs, slightly confused today, some small increase in size of SSTI in perineum Critical Care Note Critical care time (min.): 45 Exam Vital Signs Temp Pulse Resp BP Pulse Ox O2 Del Method O2 Flow Rate 97.2 F 76 18 100/52 L 100 Oxy Mask 15 08/03/24 16:08/03/24 16:08/03/24 16:08/03/24 16:08/03/24 16:08/02/24 16:08/02/24 19:00 Narrative Exam Gen- NAD, elderly and frail in appearence, awake and conversant but lethargic HEENT- NC/AT, mucosa dry, sclera anicteric Chest- LCTAB, HRRR, chest tube in place, PPM pocket appears clean without pain Abd- s/nt/bs+, b/l nephrostomy tubes in place Ext- no edema, pulses palp, no clubbing, no mottling, moves all 4 but weak Physical Exam Completion Physical Exam Complete?: Yes Objective - Inventory Control Associate Labs 08/03/24 04:47 08/03/24 14:03 Labs: Laboratory Results - last 24 hr 08/02/24 08/03/24 08/03/24 19:53 00:54 04:47 WBC 39.1 H* D RBC 3.39 L Hgb 9.7 L Hct 30.0 L MCV 89 MCH 28.6 MCHC 32.3 RDW Std Deviation 47.8 H Plt Count 257 D Neut % (Auto) 90 H Lymph % (Auto) 2 L [place] % (Auto) 6 Eos % (Auto) 0 Baso % (Auto) 0 Neut # (Auto) 35.2 H Lymph # (Auto) 0.8 L [place] # (Auto) 2.4 H Eos # (Auto) 0.1 Baso # (Auto) 0.1 Immature Gran # (Auto) 0.39 H Absolute Nucleated RBC 0.00 Immature Gran % 1 H Nucleated RBC % 0 Smear Path Review APTT 52.4 H D 47.9 H Sodium 140 Potassium 3.0 L D Chloride 105 Carbon Dioxide 20.3 Anion Gap 15 BUN 43 H Creatinine 1.7 H Estim Creat Clear Calc 30.4 L eGFR 39 L BUN/Creatinine Ratio 25 H Glucose 90 Calculated Osmolality 290 Calcium 8.0 L Corrected Calcium 8.7 Magnesium Total Bilirubin 0.5 AST 46 H ALT 22 Alkaline Phosphatase 214 H D Troponin I 1.915 H* D 2.112 H* Total Protein 5.8 Albumin 3.1 L D Globulin 2.7 Albumin/Globulin Ratio 1.1 L TSH 16.73 H Free T4 Vancomycin Trough 08/03/24 08/03/24 08:56 14:03 WBC RBC Hgb Hct MCV MCH MCHC RDW Std Deviation Plt Count Neut % (Auto) Lymph % (Auto) [place] % (Auto) Eos % (Auto) Baso % (Auto) Neut # (Auto) Lymph # (Auto) [place] # (Auto) Eos # (Auto) Baso # (Auto) Immature Gran # (Auto) Absolute Nucleated RBC Immature Gran % Nucleated RBC % Smear Path Review APTT 58.6 H D Sodium 141 Potassium 3.6 D Chloride 107 Carbon Dioxide 21.9 Anion Gap 12 BUN 44 H Creatinine 1.5 H Estim Creat Clear Calc 34.5 L eGFR 45 L BUN/Creatinine Ratio 29 H Glucose 90 Calculated Osmolality 292 Calcium 8.1 L Corrected Calcium 8.7 Magnesium 1.9 Total Bilirubin 0.6 AST 49 H ALT 15 Alkaline Phosphatase 251 H D Troponin I 1.577 H* D Total Protein 5.9 Albumin 3.2 L Globulin 2.7 Albumin/Globulin Ratio 1.2 TSH Free T4 0.71 L Vancomycin Trough 18.1 H Assessment & Plan Problem List (1) Acute CVA (cerebrovascular accident): Status: Acute (2) Sepsis: Status: Acute (3) ST elevation (STEMI) myocardial infarction: Status: Acute (4) Pneumothorax: Status: Acute (5) S/P TAVR (transcatheter aortic valve replacement): Status: Acute (6) Status post cardiac pacemaker procedure: Status: Acute (7) Septic shock: Status: Acute Additional Assessment Additional Assessment: In summary a/p [employer] Pneumocephalus-started on 100% FiO2 via facemask - HCT for fu CVA-patient's weakness is on the left and the pneumocephalus is noted on the left as well. I anticipate that if the patient's pneumocephalus was causing the patient's current symptoms it would be located on the right. Once patient is stabilized we will obtain an MRI for the follow-up. - unable to obtain MRI - fu with HCT CV Tropinemia-EKG changes and troponin noted, the patient was seen by cardiology. ST-T changes and cardiology feels that the patient may have an embolic event to his right coronary. Heparin drip was recommended. [facility] declined transfer - trops trending down - pending SREEKANTH with cards Shock- obtain additional hemodynamic data, likely distributive in nature and 2/2 sepsis however will obtain bedside echo - coming down on levo needs - cx still pending s/p PPM and ablation within the last 14days Afib- on AC, fu on echo - started on amio femoral vein air likely due to manipulation recently form ablation at [facility] h/o TAVR Resp Pneumothorax-the patient had a left-sided pacemaker placed and had a left- sided pneumothorax noted on chest x-ray. A left-sided chest tube was placed with reexpansion noted. At this point in time pneumothorax is likely a postop complication of the patient's pacemaker placement. Renal Acidosis- AG mild DELIA- prerenal vs ATN, monitor i/os, avoid nephrotoxins, good UOP at this time - trending back down today Hydronephrosis- b/l nephrostomy tubes in place HypoCa- improved HypoK- given K with improvement? GI Transaminitis- mild, monitor - no abd pain Endo Hypothyroid- TSH and free T4 are low - start low dose levothyroxine Heme Leukocytosis- likely related to sepsis - trending down Anemia- no active bleeding noted DVT proph- on AC ID UTI- on abx fu on cx Sepsis- cx and vanc/zosyn SSTI- demarcate the ischemic appearing area, no pooja crepitations palpated at this time, cont abx, surgical eval noted - slight increase in size today - surgery examined the area and recs are for ongoing abx case d/w ICU team labs, imaging, records reviewed ~45ccmin required for eval, exam, review, intervention, discussion and formulation of POC for this critically ill pt with sepsis at high risk for further and ongoing decompensation Provider Notation Provider Notation: Although this document has been carefully reviewed, there may still be some phonetic and other typographical errors. These errors are purely grammatical due to imperfections in the software program and should not be construed in any way to compromise the substance of the patient's medical care during this visit. Thank you for the opportunity and privilege in assisting you with this patient's care and management.
[2024-08-03] MEDS: BENZOCAINE 20% (Hurricaine) SPRAY 1 DOSE TOP (18:55)
[2024-08-03] MEDS: MIDAZOLAM INJ 1 MG/ML VIAL 2 ML 2 MG IV (18:57)
[2024-08-03] MEDS: fentaNYL CIT INJ 50 mCg/ML AMP 2ML IVP ×2 (18:57→20:15)
[2024-08-03] MEDS: MIDAZOLAM INJ 1 MG/ML VIAL 2 ML IV (19:09)
[2024-08-03 19:37] LABS: Partial Thromboplastin Time 47.1 Seconds (22.0-36.0)
[2024-08-03 21:13] LABS: Troponin I 1.695 ng/mL (0.0-0.045)
[2024-08-03] MEDS: AMIODARONE 360 MG IVPB 360 MG/200 ML BAG 16.667 MG IV (21:57)
[2024-08-03] MEDS: VANCOMYCIN/NS 500 MG IVPB 100 ML 120 MG IV (22:05)
--- NOTE | 2024-08-03 22:26 | PRELIM_ITS ---
CT scan of the head without intravenous contrast (axial sections with sagittal and coronal reformats) August 03, 2024 2129 hours Clinical history: f/u pneumocephalus Compared with prior study dated August 01, 2024. Findings: There is interval resolution of previously visualized air within the sulci of the fronto-parietal lobes. There is ill-defined hypodensity in the left posterior parietal lobe (axial images 13, 14/47), not well appreciated on the prior study. 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 There is no evidence of intracranial hemorrhage, mass or midline shift. There are periventricular white matter hypodensities, compatible with chronic small vessel ischemia. There is mild to moderate volume loss. There is atheromatous calcification of the intracranial arteries. The calvarium is unremarkable. The mastoid air cells and the visualized paranasal sinuses are clear. Impression: Ill-defined hypodensity in the left posterior parietal lobe not well appreciated on the prior study suspicious for acute infarct. Recommend further evaluation with MRI, as clinically indicated. Interval resolution of previously visualized air within the sulci of the fronto-parietal lobes No evidence of intracranial hemorrhage, mass or midline shift. Chronic small vessel ischemia and volume loss. Report Electronically Signed By: Pierre Serrano 08/03/2024 10:25:34 PM [EST]
[2024-08-04] VITALS (55 sets, daily range): BP systolic 85–132; BP diastolic 42–83; PULSE 68–124; RESP 14–34; TEMP 35.9–36.4; O2SAT 80–99; BMI 12.0; BMI 19.3
[2024-08-04 02:25] LABS: Hematocrit 27.1 % (41.0-53.0)
--- NOTE | 2024-08-04 03:31 | PC.NURSE ---
MD MOORE NOTIFIED AROUND 0100 OF NOTED NEW BRIGHT RED BLOOD IN RIGHT NEPHROSTOMY TUBE. LABS WERE ORDERED AND RESULTED. THE RN CALLED AND REPORTED THE RESULTS TO THE MD HGB 9.0 AND HCT 27.1. RN ORDERED TO CONTINUE HEPARIN DRIP.
[2024-08-04] MEDS: PIPER/TAZO 3.375 GM 50 ML IV (05:22)
[2024-08-04 05:24] LABS: INR 1.1 (0.9-1.3); Partial Thromboplastin Time 48.4 Seconds (22.0-36.0); Prothrombin Time 12.4 Seconds (9.0-12.2)
--- NOTE | 2024-08-04 06:00 | XR_ITS ---
Examination: AP chest single view Technique one AP portable semiupright chest single view Exam date and time: 2024 0614 hours Comparison August 03, 2024 10:30 AM INDICATIONS: Difficulty breathing today. FINDINGS: Interval volume loss left lung with shift of the trachea and heart to the left Extensive opacity in the left hemithorax Pneumonia at the right lung base Cardiac leads adequate position Left chest tube stable position IMPRESSION: Interval significant left lung atelectasis, perhaps mucous plug in the left mainstem bronchus
[2024-08-04 06:58] LABS: Basophils # (Auto) 0.1 Thou/mm3 (0.0-0.2); Basophils % (Auto) 0 % (0-2.5); Eosinophils # (Auto) 0.2 Thou/mm3 (0.0-0.5); Eosinophils % (Auto) 1 % (0-10); Hematocrit 26.1 % (41.0-53.0); Immature Granulocytes % (Auto) 1 % (0-0); Immature Granulocytes Auto 0.28 Thou/mm3 (0.00-0.00); Lymphocytes # (Auto) 0.9 Thou/mm3 (1.0-4.8); Lymphocytes % (Auto) 4 % (10-50); Mean Corpuscular HGB Conc 32.6 g/dl (31.0-37.0); Mean Corpuscular Hemoglobin 28.3 pg (25.0-35.0); Mean Corpuscular Volume 87 fL (80-100); Monocytes # (Auto) 1.7 Thou/mm3 (0.0-0.8); Monocytes % (Auto) 7 % (0-12); Neutrophils # (Auto) 21.4 Thou/mm3 (1.8-7.7); Neutrophils % (Auto) 87 % (37-80); Nucleated Red Blood Cell % 0 /100 WBC (0); Platelet Count 194 Thou/mm3 (140-440); RDW Standard Deviation 47.8 fL (35.1-43.9); White Blood Count 24.5 Thou/mm3 (3.8-10.6)
[2024-08-04 07:04] LABS: Hemoglobin 8.5 g/dL (13.5-16.0)
[2024-08-04 07:09] LABS: Alanine Aminotransferase 22 U/L (10-49); Albumin, Serum 2.9 gm/dL (3.4-4.8); Albumin/Globulin Ratio 1.2 (1.2-2.2); Alkaline Phosphatase 190 U/L (46-116); Anion Gap 10 (7-16); Aspartate Amino Transferase 42 U/L (0-34); BUN/Creatinine Ratio 35 Ratio (12-20); Bilirubin,Total 0.5 mg/dL (0.3-1.2); Blood Urea Nitrogen 39 mg/dL (9-23); Calcium 8.1 mg/dL (8.3-10.6); Carbon Dioxide 23.8 mMol/L (20.0-31.0); Chloride 110 mMol/L (98-107); Creatinine (Component) 1.1 mg/dL (0.6-1.3); Estimated Creatinine Clearance 46.7 mL/min (>60); Globulin 2.5 gm/dL (2.3-3.5); Glucose 102 mg/dL (74-106); Osmolality,Calculated 296 (275-295); Sodium 144 mMol/L (136-145); Total Protein 5.4 gm/dL (5.7-8.2); eGFR > 60 See Note
[2024-08-04] MEDS: HEPARIN SOD INJ 5000 UNIT/ML VIAL 2000 UNIT IVP (07:23)
--- NOTE | 2024-08-04 10:03 | PD.INTPROG ---
Documentation for date of: 08/04/24 Subjective Subjective Interval history: This is a 84yo M with a complex recent medical history. Most of his care is obtained at where he was DCd 48hr prior to arrival at [facility] ER. He is a poor historian and a lot of details are obtained from chart review. Apparently he developed AMS and L sided weakness reason for which he was brought into the ER yesterday. A stroke alert was called and pneumocephalus was noted. An EKG was obtained and ST elevations were noted at which point cardiology was consulted. When the case was d/w interventional cards from they stated that he had a recent cath in january of last year which did not show significant CAD and therefore he was declined. pt had a WBC >40k and a CT chest/abd/pelvis was obtained with air density noted in the perineal area as well as femoral vein bilaterally and a pneumothorax. A chest tube was placed and surgical eval was requested for SSTI with gas. Surgery did not feel pt required any surgical intervention. attempts were made to transfer for postop complications from [facility] [place] however [facility] declined transfer. ICU was contacted for eval. During this time the pts pressure dropped and he was started on levophed in the ER. pt himself was able to hold a discussion and notes weakness in his L but denies pain other than his nose where the mask was placed. He is able to state his name and where he is and knows its the weekend. I discussed with him the potential need for any intubation or CPR and he states that he does not want to be intubated and hooked up to life support nor does he wish CPR. The ER held a similar discussion with the same results. Given this the pt is accepted to ICU here at [facility]. 2/3- no acute overnight events, decrease in levo needs, slightly confused today, some small increase in size of SSTI in perineum 2/4- overnight unable to obtain SREEKANTH due to agitation, afebrile, good UOP, delirious today, appears to be moving L UE more than yesterday, some bleeding around nephrostomy tube site Critical Care Note Critical care time (min.): 55 Exam Vital Signs Temp Pulse Resp BP Pulse Ox O2 Del Method O2 Flow Rate 97.4 F 72 16 122/60 99 Oxy Mask 15 08/04/24 07:00 08/04/24 07:45 08/04/24 07:45 08/04/24 07:45 08/04/24 07:45 08/02/24 16:00 08/04/24 03:25 Narrative Exam Gen- NAD, frail elderly and chronically ill appearing, awake but intermittently confused HEENT- NC/AT, mucosa dry, sclera anicteric, no Chest- LCTA but diminshed on L, HRRR, no increase in WOB, no pain on palp of chest wall, PPM pocket looks clean, no increase in WOB Abd- s/nt/bs+, b/l nephrostomy tubes in place and some bleeding around insertion site on R as well in nephrostomy tube, area on perineum does not appear to have increased in size today, there is some increasing erythema but no crepitations palpated Ext- no edema, pulses palp, no mottling, no clubbing, moves LUE more today than prior Drips amio Physical Exam Completion Physical Exam Complete?: Yes 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 08/04/24 04:33 08/04/24 04:33 Labs: Laboratory Results - last 24 hr 08/03/24 08/03/24 08/03/24 08:56 14:03 18:41 WBC RBC Hgb Hct MCV MCH MCHC RDW Std Deviation Plt Count Neut % (Auto) Lymph % (Auto) [place] % (Auto) Eos % (Auto) Baso % (Auto) Neut # (Auto) Lymph # (Auto) [place] # (Auto) Eos # (Auto) Baso # (Auto) Immature Gran # (Auto) Absolute Nucleated RBC Immature Gran % Nucleated RBC % PT INR APTT 58.6 H D 47.1 H D Sodium 141 Potassium 3.6 D Chloride 107 Carbon Dioxide 21.9 Anion Gap 12 BUN 44 H Creatinine 1.5 H Estim Creat Clear Calc 34.5 L eGFR 45 L BUN/Creatinine Ratio 29 H Glucose 90 Calculated Osmolality 292 Calcium 8.1 L Corrected Calcium 8.7 Total Bilirubin 0.6 AST 49 H ALT 15 Alkaline Phosphatase 251 H D Troponin I 1.577 H* D Total Protein 5.9 Albumin 3.2 L Globulin 2.7 Albumin/Globulin Ratio 1.2 Vancomycin Trough 18.1 H 08/03/24 08/04/24 08/04/24 20:35 01:16 04:33 WBC 24.5 H D RBC 3.00 L Hgb 9.0 L 8.5 L Hct 27.1 L 26.1 L MCV 87 MCH 28.3 MCHC 32.6 RDW Std Deviation 47.8 H Plt Count 194 D Neut % (Auto) 87 H Lymph % (Auto) 4 L [place] % (Auto) 7 Eos % (Auto) 1 Baso % (Auto) 0 Neut # (Auto) 21.4 H Lymph # (Auto) 0.9 L [place] # (Auto) 1.7 H Eos # (Auto) 0.2 Baso # (Auto) 0.1 Immature Gran # (Auto) 0.28 H Absolute Nucleated RBC 0.00 Immature Gran % 1 H Nucleated RBC % 0 PT 12.4 H INR 1.1 APTT 48.4 H Sodium 144 Potassium 3.0 L D Chloride 110 H Carbon Dioxide 23.8 Anion Gap 10 BUN 39 H Creatinine 1.1 Estim Creat Clear Calc 46.7 L eGFR > 60 BUN/Creatinine Ratio 35 H Glucose 102 Calculated Osmolality 296 H Calcium 8.1 L Corrected Calcium 9.0 Total Bilirubin 0.5 AST 42 H ALT 22 Alkaline Phosphatase 190 H D Troponin I 1.695 H* Total Protein 5.4 L Albumin 2.9 L Globulin 2.5 Albumin/Globulin Ratio 1.2 Vancomycin Trough Assessment & Plan Problem List (1) Acute CVA (cerebrovascular accident): Status: Acute (2) Sepsis: Status: Acute (3) ST elevation (STEMI) myocardial infarction: Status: Acute (4) Pneumothorax: Status: Acute (5) S/P TAVR (transcatheter aortic valve replacement): Status: Acute (6) Status post cardiac pacemaker procedure: Status: Acute (7) Septic shock: Status: Acute Additional Assessment Additional Assessment: In summary this is a 84yo M admitted to the ICU with septic shock, pneumothorax and pneumocephalus with 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 I anticipate that if the patient's pneumocephalus was causing the patient's current symptoms it would be located on the right. Once patient is stabilized we will obtain an MRI for the follow-up. - unable to obtain MRI due to resent PPM placement - official HCT read pending for fu - obtain PT eval CV Tropinemia-EKG changes and troponin noted, the patient was seen by cardiology. ST-T changes and cardiology feels that the patient may have an embolic event to his right coronary. Heparin drip was recommended. [facility] declined transfer - trops trending down - unable to obtain SREEKANTH last night - bedside echo does not show thrombus Shock- 2/2 sepsis - currently resolved s/p PPM and ablation within the last 14days Afib- on AC, fu on echo - started on amio - currently in NSR femoral vein air likely due to manipulation recently form ablation at [facility] h/o TAVR Resp Pneumothorax-the patient had a left-sided pacemaker placed and had a left-sided pneumothorax noted on chest x-ray. A left-sided chest tube was placed with reexpansion noted. At this point in time pneumothorax is likely a postop complication of the patient's pacemaker placement. - placed to water seal yesterday with reexpansion noted on CXR - will attempt to clamp today Mucus plug- pt has white out on LLL, started on mucomyst nebs/duoneb - CPT to L - encourage movement and cough Renal Acidosis- AG mild DELIA- prerenal vs ATN, monitor i/os, avoid nephrotoxins, good UOP at this time - trending back down today Hydronephrosis- b/l nephrostomy tubes in place HypoCa- improved HypoK- replete GI Transaminitis- mild, monitor - no abd pain Endo Hypothyroid- TSH and free T4 are low - start low dose levothyroxine Heme Leukocytosis- likely related to sepsis - trending down - improving Anemia- trend down - has had some oozing around R nephrostomy - fu on repeat h/h this afternoon - transfuse if Hb <7 DVT proph- on AC ID UTI- on abx fu on cx - cx shows enterococcus Sepsis- cx and vanc/zosyn SSTI- demarcate the ischemic appearing area, no pooja crepitations palpated at this time, cont abx, surgical eval noted - slight increase in size today - surgery examined the area and recs are for ongoing abx case d/w ICU team long family meeting held with SW and and son at bedside. pts current condition explained and his ongoing deterioration. risks, benefits and complications of intubation/bronch/PEG discussed. pt himself was lucid enough to participate with the conversation. pt wishes to be made comfortable, he is in pain and suffering and his family wish to preserve quality of life and dignity. Dr Banda was in the room for the conversation as well. At this point in time the family would like to make the pt comfortable with no additional aggressive or invasive measures. labs, imaging, records reviewed ~55ccmin required for eval, exam, review, intervention, discussion and formulation of POC for this critically ill pt with sepsis at high risk for further and ongoing decompensation Provider Notation Provider Notation: Although this document has been carefully reviewed, there may still be some phonetic and other typographical errors. These errors are purely grammatical due to imperfections in the software program and should not be construed in any way to compromise the substance of the patient's medical care during this visit. Thank you for the opportunity and privilege in assisting you with this patient's care and management.
[2024-08-04] MEDS: AMIODARONE 360 MG IVPB 360 MG/200 ML BAG 16.667 MG IV (10:06)
[2024-08-04] MEDS: CLOPIDOGREL BISULFATE 75 MG TABLET PO (10:08)
--- NOTE | 2024-08-04 10:13 | ESPR_ITS ---
Documentation for date of: 08/04/24 Subjective Subjective Interval history: 08/04: wally franz overnight events reported. Pt is seen in ICU. Pt is saturing on 15L via oxymask. still trending troponin, latest troponin is 1.695. Pt denies chest pain, pressure or discomfort. Pt states he is bothered by the cough mainly. Currently patient is saturating on 8 L of oxygen via oxy mask. Later afternoon patient is seen again and patient's and son are at bedside patient family have changed his CODE STATUS to DNR/DNI and have opted out of any further invasive interventions/procedures. Patient underwent an attempted SREEKANTH however patient was unable to swallow therefore could not pass the probe and the procedure was aborted. Maintain potassium above 4 and magnesium above 2. Family has decided to place patient on comfort care. At this time cardiology team will sign off. Exam Vital Signs Temp Pulse Resp BP Pulse Ox O2 Del Method O2 Flow Rate 97.4 F 71 16 110/56 L 99 Oxy Mask 15 08/04/24 07:00 08/04/24 10:06 08/04/24 07:45 08/04/24 10:06 08/04/24 07:45 08/02/24 16:00 08/04/24 03:25 Narrative Exam General: Alert and oriented x3. In mild respiratory distress lungs on Ventimask. Appears to be under nourished more than cachectic. Eyes: Pupils are equal and reactive to light bilaterally. HEENT: Atraumatic, normocephalic. No JVD noted. Dry oral mucosa Cardiovascular: S1-S2 present, irregularly irregular rhythm, 2 or 6 systolic murmur at the apex, trace peripheral edema. Respiratory: In minimal to mild respiratory distress on Ventimask, bilateral air entry present and decreased at both the bases. No wheezing or crackles. Chest appears better shift Abdomen: Soft, nontender, nondistended. Skin: No rash. Warm to touch. Musculoskeletal: No gross injuries. Able to move all 4 extremities. Neuro: Alert and oriented x3. Left-sided hemiparesis with 0/5 power in the left upper extremity and 1 out of 5 power in the left lower extremity. Objective Labs 08/04/24 04:33 08/04/24 04:33 Labs: Laboratory Results - last 24 hr 08/03/24 08/03/24 08/03/24 08:56 14:03 18:41 WBC RBC Hgb Hct MCV MCH MCHC RDW Std Deviation Plt Count Neut % (Auto) Lymph % (Auto) [place] % (Auto) Eos % (Auto) Baso % (Auto) Neut # (Auto) Lymph # (Auto) [place] # (Auto) Eos # (Auto) Baso # (Auto) Immature Gran # (Auto) Absolute Nucleated RBC Immature Gran % Nucleated RBC % PT INR APTT 58.6 H D 47.1 H D Sodium 141 Potassium 3.6 D Chloride 107 Carbon Dioxide 21.9 Anion Gap 12 BUN 44 H Creatinine 1.5 H Estim Creat Clear Calc 34.5 L eGFR 45 L BUN/Creatinine Ratio 29 H Glucose 90 Calculated Osmolality 292 Calcium 8.1 L Corrected Calcium 8.7 Total Bilirubin 0.6 AST 49 H ALT 15 Alkaline Phosphatase 251 H D Troponin I 1.577 H* D Total Protein 5.9 Albumin 3.2 L Globulin 2.7 Albumin/Globulin Ratio 1.2 Vancomycin Trough 18.1 H 08/03/24 08/04/24 08/04/24 20:35 01:16 04:33 WBC 24.5 H D RBC 3.00 L Hgb 9.0 L 8.5 L Hct 27.1 L 26.1 L MCV 87 MCH 28.3 MCHC 32.6 RDW Std Deviation 47.8 H Plt Count 194 D Neut % (Auto) 87 H Lymph % (Auto) 4 L [place] % (Auto) 7 Eos % (Auto) 1 Baso % (Auto) 0 Neut # (Auto) 21.4 H Lymph # (Auto) 0.9 L [place] # (Auto) 1.7 H Eos # (Auto) 0.2 Baso # (Auto) 0.1 Immature Gran # (Auto) 0.28 H Absolute Nucleated RBC 0.00 Immature Gran % 1 H Nucleated RBC % 0 PT 12.4 H INR 1.1 APTT 48.4 H Sodium 144 Potassium 3.0 L D Chloride 110 H Carbon Dioxide 23.8 Anion Gap 10 BUN 39 H Creatinine 1.1 Estim Creat Clear Calc 46.7 L eGFR > 60 BUN/Creatinine Ratio 35 H Glucose 102 Calculated Osmolality 296 H Calcium 8.1 L Corrected Calcium 9.0 Total Bilirubin 0.5 AST 42 H ALT 22 Alkaline Phosphatase 190 H D Troponin I 1.695 H* Total Protein 5.4 L Albumin 2.9 L Globulin 2.5 Albumin/Globulin Ratio 1.2 Vancomycin Trough ABG Interpretation ABG results: 08/01/24 08/02/24 22:30 15:08 ABG pH 7.41 ABG pCO2 33 ABG pO2 158 H ABG HCO3 21 ABG O2 Saturation 98 ABG Base Excess -3 VBG pH 7.38 VBG pCO2 32 L VBG pO2 52 VBG Base Excess -6 L Quality Measures Quality Measures stroke Suspected type of Stroke: Unknown at this time Last known well (date): 08/01/24 Last known well (time): 14:30 Tenecteplase given: Reason(s) Tenecteplase not given: Unable to determine eligibility (Head CT shows air emboli/pneumocephaly) not given Rehab services: PT evaluation ordered VTE Prophylaxis: pharmaceutical Antithrombotic by day 2:: not indicated (describe) Statin ordered: >75 y/o moderate or high intensity dose Anticoagulation ordered for A-fib or flutter (current or hx): ordered Advance care planning discussed with:: spouse Assessment & Plan Assessment Current Active Medications: Generic Name Dose Route Start Last Admin Trade Name Freq PRN Reason Stop Dose Admin Acetaminophen 650 mg 08/02/24 10:45 Acetaminophen 325 Mg Tablet PO 09/01/24 10:44 Q4HR PRN PAIN SCALE 1-3 (mild Acetaminophen 650 mg 08/02/24 10:45 Acetaminophen Supp 650 Mg Supp [place] 09/01/24 10:44 Q4HR PRN PAIN SCALE 1-3 (mild Al Hydrox/Mg Hydrox/Simethicone 30 ml 08/02/24 10:45 Mg Hyd/Al Hyd/Kelsey (Maalox Reg) Susp 30 Ml Udc PO 09/01/24 10:44 Q4HR PRN Heartburn or Upset Stomach Atorvastatin Calcium 40 mg 08/02/24 21:00 08/03/24 22:56 Atorvastatin Calcium 20 Mg Tablet PO 09/01/24 20:59 Not Given HS KEN Clopidogrel Bisulfate 75 mg 08/02/24 15:15 08/04/24 10:08 Clopidogrel Bisulfate 75 Mg Tablet PO 09/01/24 15:14 75 mg QDAY KEN Administration Piperacillin/Tazobactam/Dextrose 50 mls @ 12.5 mls/hr 08/03/24 14:00 08/04/24 05:22 Zosyn IV 02/10/25 13:59 12.5 mls/hr Q8HR KEN Administration Protocol Norepinephrine Bitartrate 16 mg in 250 mls @ 3.232 mls/hr 08/02/24 07:00 08/04/24 04:06 Levophed In Ns 16mg/250ml IV 09/01/24 06:59 0 mcg/kg/min .Q24H PRN 0 mls/hr PER PROTOCOL Titration Protocol 0.05 MCG/KG/MIN Heparin Sodium/Dextrose 25,000 unit in 250 mls @ 8.274 mls/hr 08/02/24 12:45 08/04/24 07:25 Heparin In D5w Ivpb IV 08/16/24 12:44 16 units/kg/hr .Q24H KEN 11.031 mls/hr Titration Protocol 12 UNITS/KG/HR Amiodarone HCl/Dextrose 360 mg in 200 mls @ 16.667 mls/hr 08/03/24 21:33 08/04/24 10:06 Nexterone Ivpb IV 08/04/24 21:32 16.667 mls/hr .Q12H KEN Administration Vancomycin/Sodium Chloride 100 mls @ 120 mls/hr 08/04/24 10:00 Vancomycin/Ns 500 Mg Ivpb IV 08/11/24 09:59 Q12H KEN Magnesium Hydroxide 30 ml 08/02/24 10:45 Milk Of Magnesia Susp 30 Ml Udc PO 09/01/24 10:44 QDAY PRN CONSTIPATION Nitroglycerin 0.4 mg 08/02/24 10:45 Nitroglycerin 0.4 Mg Subl Btl #25 SL Q5MIN PRN CHEST PAIN Ondansetron HCl 4 mg 08/02/24 11:15 Ondansetron Inj 2 Mg/Ml Inj 2 Ml IV 09/01/24 11:14 Q8HR PRN NAUSEA OR VOMITING Pharmacy Consult 1 each 08/03/24 09:00 Pharmacy Renal Dose Adjustment 1 Ea XX 09/02/24 08:59 QDAY PRN PROTOCOL Pharmacy Consult 1 each 08/03/24 09:00 Vancomycin Pharmacy To Dose 1 Each Each IV 09/02/24 08:59 QDAY PRN PROTOCOL Plan A 84-year-old male with a complex past medical history with multiple comorbidities including severe aortic stenosis status post TAVR?2023 with 26 mm Devlin valve, normal coronaries by cardiac cath in December 2023, paroxysmal atrial fibrillation/flutter status post tricuspid isthmus ablation 07/29/2024, 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 Patient admitted to the ICU for an acute right-sided stroke with left hemiparesis with question of air embolism, left-sided pneumothorax status post chest tubes as well as STEMI and severe sepsis. I was consulted today by ICU and Dr. Banda for the stroke and evaluate for a SREEKANTH to rule out PFO, ASD as well as LA or LA thrombus as etiology for the stroke. SREEKANTH was unsuccessful due to patient unable to swallow therefore could not pass the probe 1. Acute stroke with left hemiparesis indicating possible right-sided stroke and question of air embolism 2. Septic shock in the setting of possible sepsis secondary to urinary tract infection with recent respiratory stent placement 3. Left-sided pneumothorax status post chest tube 4. Acute STEMI but being managed conservatively for now and his last cardiac cath in December 2023 showed normal coronaries prior to TAVR 5. Paroxysmal atrial fibrillation/flutter status post restenosis tricuspid ablation 07/29/2024 6. 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 7. Severe aortic stenosis status post TAVR in January 2024 with 26 mm Devlin valve 8. CKD stage III 9. Essential hypertension 10. Hyperlipidemia 11. Hydronephrosis status post bilateral percutaneous nephrostomy tube placement on 07/23/2024 12. Hyperlipidemia I reviewed the chart in detail and reviewed the CT head that the patient and patient does have questionable air embolism. Most of this air embolism lesions appear to be on the left parietal sulci but his weakness on the left side and do not correlate well. Upon measuring the Hounsfield units of the lesions they appear to be at -60 to -100 HU rather than -1000 HU which would be more consistent with air embolism and could be artifacts. Primary team is planning to do an MRI or a repeat CT head to reevaluate them. If a repeat CT is performed then would request radiology to report the hounsfield units for the suspected air embolism. Other possibility that patient did have air embolism with recent nephrostomy tube placement as well as other cardiac procedures that were done recently and iatrogenic air embolism is ib differential but patient should have a PFO or any ASD to substantiate the presence of air emboli in the brain. Less likely from the ablation as the patient did not involve any kind of pulmonary veins which could also cause air embolism without a PFO or an ASD. Other differential that could be considered is severe sepsis from certain strains of gas producing Klebsiella pneumonia. Of note as noted in the HPI patient is off anticoagulation for more than a week given the recent procedures including atrial fibrillation ablation, pacemaker placement as well as bilateral nephrostomy tubes. And given the entire clinical picture his history of chronic atrial fibrillation and the patient was A-fib on admission patient most likley had left atrial appendage thrombus which could have formed due to his lack of anticoagulation and embolized to cerebral circulation causing the left hemiparesis and also possible embolic occlusion of the coronary arteries which could account for the ST elevations. Recommend to continue with heparin drip, aspirin, statin if LFTs normal. No beta-earl given the low blood pressure. Amiodarone bolus and drip if pt in RVR. Conservative management for the STEMI as suggested by Dr. Banda. As described above patient has multiple reasons to evaluate further for a cardiac source of stroke including to rule out a PFO or an ASD and also in LA appendage thrombus. Appropriate indication for the SREEKANTH. Patient denies any kind of swallowing problems or any kind of esophageal interventions or previous surgeries. Patient reported that he did have previous EGDs. Patient denies any kind of gastric ulcers bleeding and any other hematemesis or hematochezia recently. Patient denies any issues with anesthesia previously. Patient is DNR/DNI but is willing to undergo the SREEKANTH procedure. Patient did not do well with the swallow study but was able to take liquids and this denies any problems with swallowing previously. Patient respiratory status is tenuous given the left pneumothorax status post chest tube and he continues to be on Ventimask. Patient still did not want to be intubated in case of any further respiratory failure and explained him with all the risk of benefits for the procedure including respiratory arrest secondary to the anesthesia. Patient explained all the risks, benefits and alternatives of SREEKANTH including the risk of perforation, bleeding, respiratory failure secondary to sedation, injury to teeth gums esophagus and stomach. Patient understands all risks and benefits and provided consent for the procedure. We will keep him n.p.o. this afternoon and plan to do the SREEKANTH caultiously this evening as he is high risk for the procedure. There is a high probability of sudden, clinically significant or life threatening deterioration in the patient condition which required the highest level of physician preparedness to intervene urgently. I have personally spent 65 minutes of critical care time, exclusive of time spent on any procedures, in evaluation and management of this critically ill patient. Management of rest of the medical conditions as per primary team and other consultants. At this time cardiology team will sign off Assessment and plan discussed with my attending physician Dr. Juana Alva ([id number])- Internal medicine resident Attending Provider Attestation/Addendum I have personally seen and examined the patient separately on the above date of service and discussed the plan of care with the resident. I reviewed the resident Dr. Apryl Alva consultation progress note and agree with the resident findings and plan in the note above and have also edited the documentation to reflect my findings and plan. SREEKANTH was attempted yesterday evening with moderate conscious sedation but were unsuccessful as the patient was unable to swallow the probe. Additional sedation could not be given as patient respiratory status was tenuous and patient was DNR and DNI and did not want to any kind of intubation or mechanical ventilation. Recommended to treat the patient with anticoagulation as the overall clinical picture suggest mostly a cardioembolic stroke. Patient did convert to normal sinus rhythm during the SREEKANTH procedure and he continued to have paroxysmal atrial fibrillation based on the telemetry review. Repeat CT head was performed as a follow-up with the initial CT head that did not show any further evidence of air embolism. Primary team did speak to the family and he was DNR and DNI yesterday and then today family does not want the patient to have any further invasive procedures and are planning comfort care measures for him as he had a long prolonged course of hospitalizations over the last 6 months with multiple procedures as per the son and the at the bedside. Cardiology will sign off for now and please call us with any questions or concerns. Vasquez Arias M.D. Interventional Cardiology
--- NOTE | 2024-08-04 10:41 | CHAP ---
Patient was visited by a Spiritual Care Volunteer on 08/04/2024 between 0900 and 1000 and received encouragement, comfort, and/or prayer.
[2024-08-04] MEDS: ACETYLCYSTEINE SOL 20% 4 ML NEBU 3 ML INH (11:43)
[2024-08-04] MEDS: ALBUTEROL/IPRATROPIUM (Duoneb) RT SOL 3 ML NEBU INH (11:43)
--- NOTE | 2024-08-04 11:49 | PC.SS ---
Family meeting scheduled for 12:30 pm today with patient's spouse and son, Rayray. HUNTER SKIN DIVER notified ICU county home demonstration agent and charge nurse.
--- NOTE | 2024-08-04 12:30 | PC.SS ---
Goals of care discussion conducted with patient and patient?s family.? Present at patient?s bedside was spouse, Gunjan Werner and son Rayray Werner.? Present via phone was patient?s daughter, Kirstie; and son in law Anup.? Dr. Arango provided the patient?s family with a overview on the patient?s condition, treatment plan and prognosis.? Educational Psychologist informed patient?s family that the patient failed swallow evaluation inhibiting the patient from accessing P.O. nutrition.? In addition it was explained to the family that the patient is in possession of a collapsed left lung.? Discussed with the family possibility of a bronchoscopy.? Educational Psychologist answered all of family questions.? Family has decided to transition the patient to DNR/DNI code status.?
--- NOTE | 2024-08-04 12:34 | PC.RT ---
CPT not done due to Rapid Response called on critical PT. CPT will be started at 1400 treatment.
--- NOTE | 2024-08-04 12:51 | PD.RESPRO ---
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 At bedside, patient cannot recall events leading up to hospitalization, therefore details obtained from chart review. Apparently patient presented with left-sided weakness in addition to his altered mental status so stroke was called. Teleneurology evaluated patient but cannot assess NIHSS and unable to determine last known well and so patient was not a candidate for TNK. However, CT head was negative for acute hemorrhage but did show air embolism and recommended to continue Trendelenburg position, 100% O2, and obtain MRI brain. Additionally, EKG showed ST elevations in leads II, III, and aVF as well as troponin of 0.4 and so heart alert was called and cardiology was consulted. Recommended to be judicious with IVF and start heparin drip with Plavix. CXR also showed 30% left apical/lateral pneumothorax and is status post chest tube placement with repeat CXR showing reexpansion of left lung. In ED, blood pressure noted to be as low as 57/45 and was started on Levophed. Of note, attempts were made to transfer to [facility] given multiple recent procedures that were done there but was declined given that patient was not a candidate for PCI. 08/03: No acute overnight events reported. Total urine output of 1235 mL and continues to be on 15 L mask. Leukocytosis significantly improved to 39. Potassium low, continue IV potassium 10 mill equivalents, repeat potassium improved to 3.6. Patient is scheduled to have a SREEKANTH today with cardiology, and after will have CT head due to patient's change in mentation. Patient does appear more lethargic than yesterday, and is A&O x 1. Troponin max was 2.1, down trended today to 1.57. Patient continues to endorse right upper extremity weakness. Patient's chest x-ray suggest little to no pneumothorax, and will change low suction to waterseal. Will order repeat chest x-ray in the morning. Since patient failed bedside swallow, patient is unable to take most of patient's p.o. meds including amiodarone. Patient evidently went back into atrial fibrillation, with rate uncontrolled into the 120s. Cardiology recommended to start IV amiodarone including bolus. 08/04: No acute overnight events reported. Was pulling at oxy mask overnight, so was put on soft restraints. Blood noted in right nephrostomy tube and around insertion site overnight. Repeat H&H showed mild drop in hemoglobin from 9.7to 9.0 and a.m. labs showed hemoglobin of 8.5. Total urine output noted to be 175 cc throughout shift. SREEKANTH attempted on 08/03 but was unsuccessful. Now chest tube output and shift manager and in total has had 30 cc since being placed. Extensive goals of care discussion took place at bedside with family and family decided to start patient on comfort care. Exam Vital Signs Temp Pulse Resp BP Pulse Ox O2 Del Method O2 Flow Rate 97.4 F 69 14 110/56 L 96 Oxy Mask 8 08/04/24 07:00 08/04/24 11:49 08/04/24 11:49 08/04/24 10:06 08/04/24 11:49 08/02/24 16:00 08/04/24 11:49 Narrative Exam General: elderly, frail male, alert and oriented to name, answers most questions and follows commands HEENT: NC/AT, mucous membranes moist, conjunctival pallor Cardiovascular: regular rate and rhythm on amiodarone drip, S1/S2 present, no murmurs appreciated Pulmonary: decreased breath sounds on L, clear to auscultation on R Abdominal: Discomfort in lower quadrants (patient states that it feels like he has to pee) Musculoskeletal: No lower extremity edema Skin: No ulcers, right nephrostomy tube with blood around insertion site, left nephrostomy site C/D/I, Prineo bruise 4.5 x 2 cm with yellow and purple discoloration Neuro: GCS 15, CN II-XII intact, sensation grossly intact in upper and lower extremities bilaterally, strength in RUE 3/5, RLE 4/5, LUE 1/5, LLE 3/5 Objective Labs 08/04/24 04:33 08/04/24 04:33 Labs: Laboratory Results - last 24 hr 08/03/24 08/03/24 08/03/24 14:03 18:41 20:35 WBC RBC Hgb Hct MCV MCH MCHC RDW Std Deviation Plt Count Neut % (Auto) Lymph % (Auto) [place] % (Auto) Eos % (Auto) Baso % (Auto) Neut # (Auto) Lymph # (Auto) [place] # (Auto) Eos # (Auto) Baso # (Auto) Immature Gran # (Auto) Absolute Nucleated RBC Immature Gran % Nucleated RBC % PT INR APTT 47.1 H D Sodium 141 Potassium 3.6 D Chloride 107 Carbon Dioxide 21.9 Anion Gap 12 BUN 44 H Creatinine 1.5 H Estim Creat Clear Calc 34.5 L eGFR 45 L BUN/Creatinine Ratio 29 H Glucose 90 Calculated Osmolality 292 Calcium 8.1 L Corrected Calcium 8.7 Total Bilirubin 0.6 AST 49 H ALT 15 Alkaline Phosphatase 251 H D Troponin I 1.577 H* D 1.695 H* Total Protein 5.9 Albumin 3.2 L Globulin 2.7 Albumin/Globulin Ratio 1.2 Vancomycin Trough 18.1 H 08/04/24 08/04/24 01:16 04:33 WBC 24.5 H D RBC 3.00 L Hgb 9.0 L 8.5 L Hct 27.1 L 26.1 L MCV 87 MCH 28.3 MCHC 32.6 RDW Std Deviation 47.8 H Plt Count 194 D Neut % (Auto) 87 H Lymph % (Auto) 4 L [place] % (Auto) 7 Eos % (Auto) 1 Baso % (Auto) 0 Neut # (Auto) 21.4 H Lymph # (Auto) 0.9 L [place] # (Auto) 1.7 H Eos # (Auto) 0.2 Baso # (Auto) 0.1 Immature Gran # (Auto) 0.28 H Absolute Nucleated RBC 0.00 Immature Gran % 1 H Nucleated RBC % 0 PT 12.4 H INR 1.1 APTT 48.4 H Sodium 144 Potassium 3.0 L D Chloride 110 H Carbon Dioxide 23.8 Anion Gap 10 BUN 39 H Creatinine 1.1 Estim Creat Clear Calc 46.7 L eGFR > 60 BUN/Creatinine Ratio 35 H Glucose 102 Calculated Osmolality 296 H Calcium 8.1 L Corrected Calcium 9.0 Total Bilirubin 0.5 AST 42 H ALT 22 Alkaline Phosphatase 190 H D Troponin I Total Protein 5.4 L Albumin 2.9 L Globulin 2.5 Albumin/Globulin Ratio 1.2 Vancomycin Trough ABG Interpretation ABG results: 08/01/24 08/02/24 22:30 15:08 ABG pH 7.41 ABG pCO2 33 ABG pO2 158 H ABG HCO3 21 ABG O2 Saturation 98 ABG Base Excess -3 VBG pH 7.38 VBG pCO2 32 L VBG pO2 52 VBG Base Excess -6 L Quality Measures Quality Measures stroke Suspected type of Stroke: Unknown at this time Last known well (date): 08/01/24 Last known well (time): 14:30 Tenecteplase given: Reason(s) Tenecteplase not given: Unable to determine eligibility (Head CT shows air emboli/pneumocephaly) not given Rehab services: PT evaluation ordered (Comfort care) and Speech Language Pathology eval ordered (Comfort care) VTE Prophylaxis: not indicated (Comfort care) Antithrombotic by day 2:: not indicated (describe) (Comfort care) Statin ordered: n/a (Comfort care) Anticoagulation ordered for A-fib or flutter (current or hx): not indicated (Comfort care) Advance care planning discussed with:: patient, spouse and child Assessment & Plan Assessment Current Active Medications: Generic Name Dose Route Start Last Admin Trade Name Freq PRN Reason Stop Dose Admin Acetaminophen 650 mg 08/02/24 10:45 Acetaminophen 325 Mg Tablet PO 09/01/24 10:44 Q4HR PRN PAIN SCALE 1-3 (mild Acetaminophen 650 mg 08/02/24 10:45 Acetaminophen Supp 650 Mg Supp RI 09/01/24 10:44 Q4HR PRN PAIN SCALE 1-3 (mild Acetylcysteine 3 ml 08/04/24 11:00 08/04/24 11:43 Acetylcysteine Nora 20% 4 Ml Nebu INH 09/03/24 10:59 3 ml Q4HRRT KEN Administration Al Hydrox/Mg Hydrox/Simethicone 30 ml 08/02/24 10:45 Mg Hyd/Al Hyd/Kelsey (Maalox Reg) Susp 30 Ml Udc PO 09/01/24 10:44 Q4HR PRN Heartburn or Upset Stomach Albuterol/Ipratropium 3 ml 08/04/24 11:00 08/04/24 11:43 Albuterol/Ipratropium (Duoneb) Rt Nora 3 Ml Nebu INH 09/03/24 10:59 3 ml Q4HRRT KEN Administration Atorvastatin Calcium 40 mg 08/02/24 21:00 08/03/24 22:56 Atorvastatin Calcium 20 Mg Tablet PO 09/01/24 20:59 Not Given HS KEN Clopidogrel Bisulfate 75 mg 08/02/24 15:15 08/04/24 10:08 Clopidogrel Bisulfate 75 Mg Tablet PO 09/01/24 15:14 75 mg QDAY KEN Administration Piperacillin/Tazobactam/Dextrose 50 mls @ 12.5 mls/hr 08/03/24 14:00 08/04/24 05:22 Zosyn IV 08/10/24 13:59 12.5 mls/hr Q8HR KEN Administration Protocol Norepinephrine Bitartrate 16 mg in 250 mls @ 3.232 mls/hr 08/02/24 07:00 08/04/24 04:06 Levophed In Ns 16mg/250ml IV 09/01/24 06:59 0 mcg/kg/min .Q24H PRN 0 mls/hr PER PROTOCOL Titration Protocol 0.05 MCG/KG/MIN Heparin Sodium/Dextrose 25,000 unit in 250 mls @ 8.274 mls/hr 08/02/24 12:45 08/04/24 07:25 Heparin In D5w Ivpb IV 08/16/24 12:44 16 units/kg/hr .Q24H KEN 11.031 mls/hr Titration Protocol 12 UNITS/KG/HR Amiodarone HCl/Dextrose 360 mg in 200 mls @ 16.667 mls/hr 08/03/24 21:33 08/04/24 10:06 Nexterone Ivpb IV 08/04/24 21:32 16.667 mls/hr .Q12H KEN Administration Vancomycin/Sodium Chloride 100 mls @ 120 mls/hr 08/04/24 10:00 Vancomycin/Ns 500 Mg Ivpb IV 08/11/24 09:59 Q12H KEN Levothyroxine Sodium 100 mcg 08/05/24 06:00 Levothyroxine Inj 100 Mcg Vial IV 09/04/24 05:59 ACBR KEN Magnesium Hydroxide 30 ml 08/02/24 10:45 Milk Of Magnesia Susp 30 Ml Udc PO 09/01/24 10:44 QDAY PRN CONSTIPATION Nitroglycerin 0.4 mg 08/02/24 10:45 Nitroglycerin 0.4 Mg Subl Btl #25 SL Q5MIN PRN CHEST PAIN Ondansetron HCl 4 mg 08/02/24 11:15 Ondansetron Inj 2 Mg/Ml Inj 2 Ml IV 09/01/24 11:14 Q8HR PRN NAUSEA OR VOMITING Pharmacy Consult 1 each 08/03/24 09:00 Pharmacy Renal Dose Adjustment 1 Ea XX 09/02/24 08:59 QDAY PRN PROTOCOL Pharmacy Consult 1 each 08/03/24 09:00 Vancomycin Pharmacy To Dose 1 Each Each IV 09/02/24 08:59 QDAY PRN PROTOCOL Plan Jules Cabrera is an 84-year-old male with a complex past medical history of hypertension, hyperlipidemia, hypothyroidism, 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 Neurological #Pneumocephalus CT findings consistent with air embolus on left side. ? 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 Tele-neuro consulted and recommended stroke management workup. Patient is A&O x 1. Cholesterol 73, LDL 33, HDL 22, triglycerides 88 A1c 4.8% ? Comfort care measures Cardiovascular #STEMI #Elevated Troponin-resolving #Hx of Pacemaker #Hx of TAVR EKG showed ST elevations in leads II, III, and aVF with uptrending troponins, most recent 1.06 from 0.94. Cardiology already consulted and saw patient and recommends heparin drip with plavix. Troponin max was 2.1, and downtrending. ? Comfort care measures #Shock, likely distributive Bedside echo done with Dr. Banda present on 08/02 showing small pericardial effusion, preserved EF, normally functioning prosthetic valve, and Cheetah showed CI of 3.8, making cardiogenic shock unlikely. Passive leg raise with Cheetah also did not demonstrate fluid responsiveness and already received 3 L NS in ED, making hypovolemic shock unlikely. CT A/P showed extensive air containing soft tissue in perineum with WBC of 55.9, and initial vitals showed HR of 111 and RR 22 but no fevers, which may be possible source of infection and shock. Most liklely septic in nature due to possible source from soft tissue infection from perineum and UTI ? Comfort care measures #Atrial Fibrillation with RVR Patient is back to irregularly irregular rhythm despite pacemaker and aflutter ablation ? Comfort care measures Pulmonary #Pneumothorax status post chest tube placement, resolving CXR on 08/01 showed 30% pneumothorax that has since resolved s/p chest tube placement. PTX in setting of recent complication of a possible air pocket forming while placing pacemaker recently ? Comfort care measures Gastrointestinal #Transaminitis ? Comfort care measures Renal #Acute kidney injury DDx: pre-renal vs ATN; patient is making adequate urine output, at least 50cc/hr/kg Baseline creatinine 0.9, currently 1.4. Has bilateral nephrostomy tubes placed. ? Comfort care measures #Acidosis - improving Initial HCO3 of 15.6 with anion gap of 17.9 corrected for albumin. ABG showed pH 7.4, pCO2 33, pO2 158. #Electrolyte Imbalance #Hypocalcemia-improving #Hypokalemia ? Comfort care measures Hematological #Normocytic anemia, chronic No active signs of bleeding ? Comfort care measures #Leukocytosis-resolved Likely secondary to sepsis in the setting of soft tissue infection and UTI Less likely to be infection from b/l nephrostomy tube placement or chest pneumothorax placement ? Comfort care measures Endocine #Hypothyroidism TSH elevated, and free T4 are low, consistent with hypothyroidism ? Comfort care measures Infectious disease #Sepsis #Soft tissue infection DDx: most likely cellulitis of perineum, less likely to be erythematous rash as induration noted accompanied with 3cm necrotic lesion in center of perineum CT A/P and leukocytosis noted above in setting of shock requiring pressors. ? Comfort care measures #Urinary tract infection UA showed turbid urine, 2+ protein, 3+ blood, 182 RBC, 192, WBC, 3+ bacteria, yeast present ? Comfort care measures Hospital management: Comfort care measures ----- Plan discussed with attending physician Dr. Nba Blancas MD PGY-1 Internal Medicine
[2024-08-04] MEDS: VANCOMYCIN/NS 500 MG IVPB 100 ML 120 MG IV (13:21)
[2024-08-04 13:53] LABS: Partial Thromboplastin Time 48.4 Seconds (22.0-36.0)
--- NOTE | 2024-08-04 14:17 | ESPR_ITS ---
<Statement entered by Latoya Banda MD - 08/07/24 08:55> I personally examined this patient intensive care unit still in critical condition patient is not doing well prognosis extremely poor not expected to survive as multiple problems as documented agree with treatment plan recommendation as documented by Dr. Alonso Documentation for date of: 08/04/24 Subjective Subjective Interval history: No overnight events. Patient seen and examined at bedside. Denies shortness of breath, chest pain. Complains of left-sided weakness. Continue IV heparin and IV amiodarone. Strongly suspect embolic source of stroke. Exam Vital Signs Temp Pulse Resp BP Pulse Ox O2 Del Method O2 Flow Rate 97.4 F 69 14 110/56 L 96 Oxy Mask 8 08/04/24 07:00 08/04/24 11:49 08/04/24 11:49 08/04/24 10:06 08/04/24 11:49 08/02/24 16:00 08/04/24 11:49 Narrative Exam PE: Gen: Ill-appearing. Cachectic. HEENT: NCAT, PERRLA, EOMI, MMM, anicteric conjunctivae. CVS: normal S1 and S2. No M/R/G. Irregular irregular rhythm, tachycardic 100?120s. Resp: Diminished on left side. Clear to auscultation bilaterally. Abd: soft, non-tender, non-distended. MSK: Good ROM in BUE & BLE. No rash. 1+ edema bilateral upper extremity. Neuro: CN II-XII grossly intact. Strength 5/5 in RUE & RLE. Strength 1/5 left upper and lower extremity. Alert and oriented x3. Psych: appropriate mood and affect. Objective Labs 08/04/24 04:33 08/04/24 04:33 Labs: Laboratory Results - last 24 hr 08/03/24 08/03/24 08/03/24 14:03 18:41 20:35 WBC RBC Hgb Hct MCV MCH MCHC RDW Std Deviation Plt Count Neut % (Auto) Lymph % (Auto) Garrett % (Auto) Eos % (Auto) Baso % (Auto) Neut # (Auto) Lymph # (Auto) Garrett # (Auto) Eos # (Auto) Baso # (Auto) Immature Gran # (Auto) Absolute Nucleated RBC Immature Gran % Nucleated RBC % PT INR APTT 47.1 H D Sodium 141 Potassium 3.6 D Chloride 107 Carbon Dioxide 21.9 Anion Gap 12 BUN 44 H Creatinine 1.5 H Estim Creat Clear Calc 34.5 L eGFR 45 L BUN/Creatinine Ratio 29 H Glucose 90 Calculated Osmolality 292 Calcium 8.1 L Corrected Calcium 8.7 Total Bilirubin 0.6 AST 49 H ALT 15 Alkaline Phosphatase 251 H D Troponin I 1.577 H* D 1.695 H* Total Protein 5.9 Albumin 3.2 L Globulin 2.7 Albumin/Globulin Ratio 1.2 Vancomycin Trough 18.1 H 08/04/24 08/04/24 08/04/24 01:16 04:33 13:16 WBC 24.5 H D RBC 3.00 L Hgb 9.0 L 8.5 L Hct 27.1 L 26.1 L MCV 87 MCH 28.3 MCHC 32.6 RDW Std Deviation 47.8 H Plt Count 194 D Neut % (Auto) 87 H Lymph % (Auto) 4 L Garrett % (Auto) 7 Eos % (Auto) 1 Baso % (Auto) 0 Neut # (Auto) 21.4 H Lymph # (Auto) 0.9 L Garrett # (Auto) 1.7 H Eos # (Auto) 0.2 Baso # (Auto) 0.1 Immature Gran # (Auto) 0.28 H Absolute Nucleated RBC 0.00 Immature Gran % 1 H Nucleated RBC % 0 PT 12.4 H INR 1.1 APTT 48.4 H 48.4 H Sodium 144 Potassium 3.0 L D Chloride 110 H Carbon Dioxide 23.8 Anion Gap 10 BUN 39 H Creatinine 1.1 Estim Creat Clear Calc 46.7 L eGFR > 60 BUN/Creatinine Ratio 35 H Glucose 102 Calculated Osmolality 296 H Calcium 8.1 L Corrected Calcium 9.0 Total Bilirubin 0.5 AST 42 H ALT 22 Alkaline Phosphatase 190 H D Troponin I Total Protein 5.4 L Albumin 2.9 L Globulin 2.5 Albumin/Globulin Ratio 1.2 Vancomycin Trough ABG Interpretation ABG results: 08/01/24 08/02/24 22:30 15:08 ABG pH 7.41 ABG pCO2 33 ABG pO2 158 H ABG HCO3 21 ABG O2 Saturation 98 ABG Base Excess -3 VBG pH 7.38 VBG pCO2 32 L VBG pO2 52 VBG Base Excess -6 L Quality Measures Quality Measures stroke Suspected type of Stroke: Unknown at this time Last known well (date): 08/01/24 Last known well (time): 14:30 Tenecteplase given: Reason(s) Tenecteplase not given: Unable to determine eligibility (Head CT shows air emboli/pneumocephaly) not given Rehab services: PT evaluation ordered and Speech Language Pathology eval ordered VTE Prophylaxis: pharmaceutical Antithrombotic by day 2:: not indicated (describe) Statin ordered: >75 y/o moderate or high intensity dose Anticoagulation ordered for A-fib or flutter (current or hx): ordered Advance care planning discussed with:: patient and spouse Assessment & Plan Assessment Current Active Medications: Generic Name Dose Route Start Last Admin Trade Name Freq PRN Reason Stop Dose Admin Acetaminophen 650 mg 08/02/24 10:45 Acetaminophen 325 Mg Tablet PO 09/01/24 10:44 Q4HR PRN PAIN SCALE 1-3 (mild Acetaminophen 650 mg 08/02/24 10:45 Acetaminophen Supp 650 Mg Supp WI 09/01/24 10:44 Q4HR PRN PAIN SCALE 1-3 (mild Acetylcysteine 3 ml 08/04/24 11:00 08/04/24 11:43 Acetylcysteine Nora 20% 4 Ml Nebu INH 09/03/24 10:59 3 ml Q4HRRT KEN Administration Al Hydrox/Mg Hydrox/Simethicone 30 ml 08/02/24 10:45 Mg Hyd/Al Hyd/Kelsey (Maalox Reg) Susp 30 Ml Udc PO 09/01/24 10:44 Q4HR PRN Heartburn or Upset Stomach Albuterol/Ipratropium 3 ml 08/04/24 11:00 08/04/24 11:43 Albuterol/Ipratropium (Duoneb) Rt Nora 3 Ml Nebu INH 09/03/24 10:59 3 ml Q4HRRT KEN Administration Atorvastatin Calcium 40 mg 08/02/24 21:00 08/03/24 22:56 Atorvastatin Calcium 20 Mg Tablet PO 09/01/24 20:59 Not Given HS KEN Clopidogrel Bisulfate 75 mg 08/02/24 15:15 08/04/24 10:08 Clopidogrel Bisulfate 75 Mg Tablet PO 09/01/24 15:14 75 mg QDAY KEN Administration Piperacillin/Tazobactam/Dextrose 50 mls @ 12.5 mls/hr 08/03/24 14:00 08/04/24 05:22 Zosyn IV 08/10/24 13:59 12.5 mls/hr Q8HR KEN Administration Protocol Norepinephrine Bitartrate 16 mg in 250 mls @ 3.232 mls/hr 08/02/24 07:00 08/04/24 04:06 Levophed In Ns 16mg/250ml IV 09/01/24 06:59 0 mcg/kg/min .Q24H PRN 0 mls/hr PER PROTOCOL Titration Protocol 0.05 MCG/KG/MIN Heparin Sodium/Dextrose 25,000 unit in 250 mls @ 8.274 mls/hr 08/02/24 12:45 08/04/24 07:25 Heparin In D5w Ivpb IV 08/16/24 12:44 16 units/kg/hr .Q24H KEN 11.031 mls/hr Titration Protocol 12 UNITS/KG/HR Amiodarone HCl/Dextrose 360 mg in 200 mls @ 16.667 mls/hr 08/03/24 21:33 08/04/24 10:06 Nexterone Ivpb IV 08/04/24 21:32 16.667 mls/hr .Q12H KEN Administration Vancomycin/Sodium Chloride 100 mls @ 120 mls/hr 08/04/24 10:00 08/04/24 13:21 Vancomycin/Ns 500 Mg Ivpb IV 08/11/24 09:59 120 mls/hr Q12H KEN Administration Potassium Chloride 10 meq in 100 mls @ 100 mls/hr 08/04/24 13:24 Kcl Ivpb IV 08/04/24 19:23 Q1H KEN Levothyroxine Sodium 100 mcg 08/05/24 06:00 Levothyroxine Inj 100 Mcg Vial IV 09/04/24 05:59 ACBR KEN Magnesium Hydroxide 30 ml 08/02/24 10:45 Milk Of Magnesia Susp 30 Ml Udc PO 09/01/24 10:44 QDAY PRN CONSTIPATION Nitroglycerin 0.4 mg 08/02/24 10:45 Nitroglycerin 0.4 Mg Subl Btl #25 SL Q5MIN PRN CHEST PAIN Ondansetron HCl 4 mg 08/02/24 11:15 Ondansetron Inj 2 Mg/Ml Inj 2 Ml IV 09/01/24 11:14 Q8HR PRN NAUSEA OR VOMITING Pharmacy Consult 1 each 08/03/24 09:00 Pharmacy Renal Dose Adjustment 1 Ea XX 09/02/24 08:59 QDAY PRN PROTOCOL Pharmacy Consult 1 each 08/03/24 09:00 Vancomycin Pharmacy To Dose 1 Each Each IV 09/02/24 08:59 QDAY PRN PROTOCOL Plan 84-year-old male with a complex past medical history of hypertension, hyperlipidemia, hypothyroidism, 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 #STEMI #Hx of Pacemaker #Hx of TAVR EKG showed ST elevations in leads II, III, and aVF with uptrending troponins, troponin peaked at 2.1. Patient had anticoagulation held during recent hospital stay at [facility] for numerous procedures including ablation and pacemaker implantation, possibility of thrombus occluding right coronary artery. SREEKANTH was attempted for further evaluation, unable to successfully perform. Continue medical management. -Heparin drip -Plavix, Asa, and Atorvastatin currently held due to patient n.p.o. #Atrial Fibrillation with RVR Patient has history of atrial flutter, treated with a flutter ablation 07/29/2024 and pacemaker implantation 07/22/2024. Patient is back to irregularly irregular rhythm despite pacemaker and aflutter ablation. Patient has been started on amiodarone drip with bolus, heart rate remains irregular irregular but rate controlled 100?120. Patient n.p.o. due to failed bedside swallow screen. -Continue amiodarone IV -Continue heparin gtt #Shock, likely distributive, resolved Bedside echo done on 08/02 showing small pericardial effusion, preserved EF, normally functioning prosthetic valve. Cheetah showed CI of 3.8, making cardiogenic shock unlikely. Passive leg raise with Cheetah also did not demonstrate fluid responsiveness and already received 3 L NS in ED, making hypovolemic shock unlikely. CT A/P showed extensive air containing soft tissue in perineum with WBC of 55.9, and initial vitals showed HR of 111 and RR 22 but no fevers, which may be possible source of infection and shock. 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 Tele-neuro consulted and recommended stroke management workup. Patient is A&O x 1. Cholesterol 73, LDL 33, HDL 22, triglycerides 88. A1c 4.8% Head CT initially showed possible pneumocephalus left side, inconsistent with patient symptoms which are present on left side. Repeat head CT did not show pneumocephalus. Suspect embolic source. SREEKANTH was attempted for further evaluation, unable to be completed. -Q4 neurochecks -Failed Speech therapy, no diet -DVT prophylaxis with heparin gtt -Consider MRI #Pneumothorax status post chest tube placement, resolving CXR on 08/01 showed 30% pneumothorax that has since resolved s/p chest tube placement. PTX in setting of recent complication of a possible air pocket forming while placing pacemaker recently -Chest tube in place with low suction to water seal -F/u repeat CXR #Acute kidney injury #Acidosis - improving #Electrolyte Imbalance #Hypocalcemia-improving #Hypokalemia #Normocytic anemia, chronic #Hypothyroidism #Sepsis #Soft tissue infection #Urinary tract infection Management as per primary team. Plan of care discussed with attending Dr. Banda. Kirt Darling MD PGY-1
--- NOTE | 2024-08-04 15:48 | PC.SS ---
RUNNER MAN informed by bedside nurse that patient's family has decided to transition the patient to comfort care.
--- NOTE | 2024-08-04 15:52 | PC.NURSE ---
Patient's family Gunjan () and Solo (Gunjan's son) at bedside requesting to talk about comfort measures. Comfort measures were explained to the family at bedside who decided on initiating comfort.
--- NOTE | 2024-08-04 16:16 | PC.NURSE ---
Gunjan called to encourage her to be in the room prior to starting pain medication. She stated that she would be back later in the evening and it was ok to start the continuos pain medication.
[2024-08-04] MEDS: SCOPOLAMINE 1 MG TDSY TOP (16:23)
[2024-08-04] MEDS: MORPHINE SULF INJ 10 MG/ML VIAL 2 MG IVP (16:23)
[2024-08-04] MEDS: Morphine IV Drip 100mg/100ml 100 ML IV (16:24)
--- NOTE | 2024-08-04 17:27 | EVENTNT_ITS ---
Documentation for date of: 08/04/24 Event Note Event Note: 84-year-old male with past medical history of hypertension, hyperlipidemia, hypothyroidism, severe arctic stenosis status post TAVR on 01/2024, paroxysmal A- fib/flutter status post ablation on 07/29/2024, tachybradycardia syndrome status post pacemaker implantation on 07/22/2024, and bilateral nephrostomy tube on 07/23/2024 was admitted to the ICU on 08/02/2024 due to altered mental status and focal neurological deficits. Patient had a head CT which did not show any acute hemorrhage, but did show air embolism. Patient's EKG also did show ST elevations in multiple leads and troponin was 0.4 on admission. Heparin drip was started. Chest x-ray which was no pneumothorax and chest tube was placed. Patient required vasopressors during hospital stay. At this time patient was made comfort care and will be downgraded to medical floors and assigned to team a on 08/05/2024. Case disclosed with Attending Dr. Donald Barnard PGY1
--- NOTE | 2024-08-04 18:17 | PC.NURSE ---
Report called to DEEP Gonzáles at this time.
--- NOTE | 2024-08-05 01:35 | ESPR_ITS ---
RE: SANTIAGO HEADLEY : 1940 DATE OF SERVICE: 08/03/2024 SUBJECTIVE: The patient is an 84-year-old male admitted to the hospital yesterday with severe shortness of breath, was found to have severe leukocytosis, sepsis, developed hypotension recurring vasopressors, also had a recent history of TAVR procedure in 01/2020, came to the hospital with ST-T evaluation as well as stroke with left-sided weakness. The CT scan initially showed evidence of possible air embolism, though it will doubt very much. Clinically, he is still not improving. Though he is awake and alert, his left arm weakness is still persisting. He is still requiring low dose of vasopressors. He does not complain of any shortness of breath. The patient developed pneumothorax requiring chest tube placement as well. Because of the possibility left atrial thrombi with atrial fibrillation, intermittently not anticoagulated. Transesophageal echocardiogram was ordered, but could not be performed because he is unable to swallow, poor swallow reflex. OBJECTIVE: Vital Signs: His exam shows the vital signs remained unstable. He has been somewhat hypotensive at times requiring vasopressors, but not having any other issues. _ , pulse rate 70%, respirations 18_ , temperature normal. Neck: Supple. No JVD. Lungs: Decreased breath sounds. No rales or rhonchi. Heart: S1, S2, irregular atrial fibrillation. Abdomen: Abdomen is thin and soft. Extremities: Mild edema. IMPRESSION: 1. Recurrent episodes of paroxysmal atrial fibrillation requiring amiodarone. 2. Status post TAVR. 3. Stroke with left-sided hemiparesis, possibly for embolic stroke. 4. Severe sepsis with marked elevation of white count. 5. Bilateral nephrostomy tubes with hydronephrosis. RECOMMENDATIONS: Dr. Arias was supposed to do TEE_ , could not perform. The patient will be continued on IV heparin for now, amiodarone for atrial fibrillation and rate control. The patient did convert to sinus rhythm during SREEKANTH procedure and earlier as well, but intermittently having rapid rates. Since, we will continue amiodarone IV. The patient is unable to swallow as well. Continue all the medications. The prognosis of poor. Condition remains unstable with intermittent episode of AFib RVR. Neurologic condition also not improved. Overall, the patient appears to be cathartic with multisystem disease and discussion should be made with the family about code status tomorrow. DT: 00:41:41 TT: 01:26:00 Ref: [id number] - TID: [id number] [facility]
[2024-08-05] MEDS: MORPHINE SULF INJ 10 MG/ML VIAL 2 MG IVP ×2 (03:43→05:25)
[2024-08-05 05:59] VITALS: BMI 19.9
[2024-08-05 08:00] VITALS: BP 93/52; PULSE 79; RESP 14; TEMP 36.1; O2SAT 71
--- NOTE | 2024-08-05 09:16 | PC.PT ---
Patient will be dc from PT services secondary to patient is currently comfort care.
--- NOTE | 2024-08-05 10:30 | PD.RESPRO ---
Documentation for date of: 08/05/24 Subjective Subjective Interval history: Patient was seen at bedside this morning. Patient was resting peacefully in bed. Strong radial pulses felt in the morning. Patient's blood pressure has been on the lower end at 93/52 and his oxygenation has been down to the 71% on 8 L via nasal cannula. Will continue with comfort care for now. No family was at bedside during assessment. Exam Vital Signs Temp Pulse Resp BP Pulse Ox O2 Del Method O2 Flow Rate 97.0 F 79 14 93/52 L 71 L Room Air 8 08/05/24 08:00 08/05/24 08:00 08/05/24 08:00 08/05/24 08:00 08/05/24 08:00 08/04/24 20:00 08/04/24 11:49 Narrative Exam General: Frail, ill-appearing, resting in bed HEENT: Dry mucosa Lungs:Diminished breath sounds SHA Cardio: Normal S1/S2, irregular rhythm, no murmurs, no JVD Abdomen: Soft, non-tender, no palpable masses, peristalsis present, no guarding or rebound. Extremities: Symmetrical, no significant deformities, no peripheral edema , non-tender, peripheral pulses presents. Skin: No rashes, no lesions, warm to touch. Objective Labs 08/04/24 04:33 08/04/24 04:33 Labs: Laboratory Results - last 24 hr 08/04/24 13:16 APTT 48.4 H ABG Interpretation ABG results: 08/01/24 08/02/24 22:30 15:08 ABG pH 7.41 ABG pCO2 33 ABG pO2 158 H ABG HCO3 21 ABG O2 Saturation 98 ABG Base Excess -3 VBG pH 7.38 VBG pCO2 32 L VBG pO2 52 VBG Base Excess -6 L Quality Measures Quality Measures stroke Suspected type of Stroke: Unknown at this time Last known well (date): 08/01/24 Last known well (time): 14:30 Tenecteplase given: Reason(s) Tenecteplase not given: Unable to determine eligibility (Head CT shows air emboli/pneumocephaly) not given Assessment & Plan Assessment Current Active Medications: Generic Name Dose Route Start Last Admin Trade Name Freq PRN Reason Stop Dose Admin Artificial Tears 1 drop 08/04/24 15:46 Artificial Tears 225 Drop/15 Ml Btl BOTH EYES 09/03/24 15:45 Q4HR PRN Dry eyes Morphine Sulfate 100 mls @ 1 mls/hr 08/04/24 15:46 08/05/24 05:27 Morphine Sulfate Iv Drip 100mg/100ml IV 08/09/24 15:45 2 mg/hr .Q24H PRN 2 mls/hr PAIN (COMFORT CARE) Titration Protocol 1 MG/HR Morphine Sulfate 2 mg 08/04/24 15:53 08/05/24 05:25 Morphine Sulf Inj 10 Mg/Ml Vial IVP 08/09/24 15:52 2 mg Q30M PRN Administration PAIN Ondansetron HCl 4 mg 08/02/24 11:15 Ondansetron Inj 2 Mg/Ml Inj 2 Ml IV 09/01/24 11:14 Q8HR PRN NAUSEA OR VOMITING Scopolamine 1 mg 08/04/24 16:15 08/04/24 16:23 Scopolamine 1 Mg Tdsy TOP 09/03/24 16:14 1 mg Q3D KEN Administration Plan 84-year-old male with past medical history of hypertension, hyperlipidemia, hypothyroidism, severe arctic stenosis status post TAVR on 01/2024, paroxysmal A-fib/flutter status post ablation on 07/29/2024, tachybradycardia syndrome status post pacemaker implantation on 07/22/2024, and bilateral nephrostomy tube on 07/23/2024 was admitted to the ICU on 08/02/2024 due to altered mental status and focal neurological deficits. #Pneumocephalus #CVA secondary to acute embolism versus ischemia #STEMI #Atrial fibrillation with RVR #Pneumothorax #Septic shock #UTI #Cellulitis, perineum #Hypothyroidism #Normocytic normochromic anemia #DELIA #Transaminitis #Hx of pacemaker #Hx of TAVR ?Patient is on comfort care. Disposition: Comfort care. Case disclosed with Attending Dr. Holland and My senior Dr. Pugh PGY3. Rhys Barnard PGY1
--- NOTE | 2024-08-05 10:53 | CHAP ---
Patient was visited by a Spiritual Care Volunteer on 08/05/2019 between 0900 and 0923 and received comfort, encouragement and/or prayer.
--- NOTE | 2024-08-05 13:27 | PD.DPN ---
Documentation for date of: 08/05/24 Pronouncement Note Date and Time of Date of : 08/05/24 Time of : 11:41 Contributing Factors (1) Acute CVA (cerebrovascular accident): (2) Sepsis: (3) ST elevation (STEMI) myocardial infarction: (4) Pneumothorax: (5) S/P TAVR (transcatheter aortic valve replacement): (6) Status post cardiac pacemaker procedure: (7) Septic shock: Summary Additional details: Summary, I was called to see patient for unresponsiveness. On exam the patient was unresponsive, no spontaneous movement was observed, patient did not respond to verbal or noxious stimuli. Auscultated absent heart and breath sounds for more than 2 minutes. Peripheral pulses are absent. B/L Pupils are fixed, dilated, and corneal reflex was absent. Patient pronounced at 11:41. Attending Dr. Holland notified. Stepson and at bedside. 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 Patient had a head CT which did not show any acute hemorrhage, but did show air embolism. Patient's EKG also did show ST elevations in multiple leads and troponin was 0.4 on admission. Heparin drip was started. Chest x-ray which showed pneumothorax and chest tube was placed. Patient required vasopressors during hospital stay. Patient was downgraded to the medical floors on 08/05/2024 after he was placed on comfort care after extensive discussions of goals of care with family members. This morning patient was seen resting peacefully in bed and around 11:35 AM I was called about patient being unresponsive. Patient's and stepson were at bedside and condolences were given. Admitted on 08/02/2024 on 08/05/2024 at 11:41 CODE STATUS: DNR/DNI Causes of : 1. Cardiopulmonary arrest 2.Pneumocephalus 3. CVA secondary to acute embolism versus ischemia 4. STEMI 5. Pneumothorax 6. Septic shock Case disclosed with Attending Dr. Skyler Barnard MD PGY-1 Internal Medicine Resident [facility] Additional Data Confirmation of : no pulse, no respirations, no heart sounds, pupils fixed and dilated and other (No pupillary reflex) Family: at bedside Attending physician: Anika Holland DO
--- NOTE | 2024-08-05 13:28 | PD.DDS ---
Documentation for date of: 08/05/24 Summary Date and Time Date of admission: 08/02/24 11:58 Date of : 08/05/24 Time of : 11:41 Summary Details: Admitted on 08/02/2024 on 08/05/2024 at 11:41 CODE STATUS: DNR/DNI Causes of : 1. Cardiopulmonary arrest 2.Pneumocephalus 3. CVA secondary to acute embolism versus ischemia 4. STEMI 5. Pneumothorax 6. Septic shock Hospital Course: 84-year-old male with past medical history of hypertension, hyperlipidemia, hypothyroidism, severe arctic stenosis status post TAVR on 01/2024, paroxysmal A-fib/flutter status post ablation on 07/29/2024, tachybradycardia syndrome status post pacemaker implantation on 07/22/2024, and bilateral nephrostomy tube on 07/23/2024 was admitted to the ICU on 08/02/2024 due to altered mental status and focal neurological deficits. Patient had a head CT which did not show any acute hemorrhage, but did show air embolism. Patient's EKG also did show ST elevations in multiple leads and troponin was 0.4 on admission. Heparin drip was started. Chest x-ray which showed pneumothorax and chest tube was placed. Patient required vasopressors during hospital stay. Patient was downgraded to the medical floors on 08/05/2024 after he was placed on comfort care after extensive discussions of goals of care with family members. The patient was placed on supplemental oxygen via nasal cannula, morphine drip, midazolam and was comfortable until she at 11:41. Patient was placed on comfort care his blood pressure continued to drop and his oxygen saturation continued to drop into the low 70s even though he was on a liters a liters of O2. This morning patient was seen resting peacefully in bed and around 11:35 AM I was called about patient being unresponsive. Patient's and stepson were at bedside and condolences were given. Called to see patient for unresponsiveness. On exam the patient was unresponsive, no spontaneous movement was observed, patient did not respond to verbal or noxious stimuli. Auscultated absent heart and breath sounds for more than 2 minutes. Peripheral pulses are absent. Pupils are fixed, dilated, and corneal reflex was absent bilaterally. Patient pronounced at 11:41. Dr. Holland notified. Family at bedside. Case disclosed with Attending Dr. Skyler Barnard MD PGY-1 Internal Medicine Resident [facility] Additional Data Confirmation of as documented by pronouncing clinician: no pulse, no respirations, no heart sounds, pupils fixed and dilated and other (no corneal reflex) Family: at bedside Attending physician: Anika Holland, DO Visit Providers Provider Primary care physician: Physician No Primary/Family Consults: 08/01/24 15:34 Consult to Neurology / Tele-Neurology Routine Comment: Consulting Provider: [facility] 08/01/24 16:32 Consult to Cardiology Stat Comment: Consulting Provider: Latoya Banda 08/02/24 20:31 Referral Physical Therapy Routine Comment: Physician Instructions: 08/03/24 09:09 Consult to Cardiology Urgent Comment: Consulting Provider: Vasquez Arias Instructions: SREEKANTH stroke 08/03/24 09:57 Referral Wound Care Stat Comment: 08/04/24 15:47 Referral Hospice Urgent Comment: Diagnosis Contributing Factors (1) Acute CVA (cerebrovascular accident): (2) Sepsis: (3) ST elevation (STEMI) myocardial infarction: (4) Pneumothorax: (5) S/P TAVR (transcatheter aortic valve replacement): (6) Status post cardiac pacemaker procedure: (7) Septic shock: Discharge Plan Plan Disposition Comment: ICU Prescriptions/Referrals Prescriptions/Med Rec: No Action rosuvastatin [Crestor] 20 MG tablet 20 mg PO HS Qty: 0 amlodipine 5 mg Tablet 5 mg PO PRN PRN (Reason: Blood Pressure) Rx Instructions: If BP is over 140 levothyroxine 88 mcg Tablet 88 mcg PO QDAY clopidogrel 75 mg tablet 75 mg PO DAILY dicyclomine 10 mg capsule 10 mg PO BID Patient Comments: take 1 capsule by mouth twice a day amiodarone 200 mg tablet 400 mg PO QDAY metoprolol succinate 50 mg tablet extended release 24 hr 25 mg PO BID cholecalciferol (vitamin D3) 125 mcg (5,000 unit) tablet 5,000 unit PO QDAY Eliquis 5 mg tablet 2.5 mg PO BID Referrals: No Primary/Family,Physician [Primary Care Provider] - Patient/Caregiver Discharge Instructions Print Language: Portuguese
== END 2024-08-05 11:41 | disposition expired | DRG 871 ==
LOC: SERX 17:01 → S2SX 08-03 08:40 → SERHOLD 08-03 08:54 → S2SX 08-04 14:39 → S3NX 08-04 18:43
PROVIDERS: Student in an Organized Health Care Education/Training Program; Admitting Provider Internal Medicine; Emergency Provider Emergency Medicine; Visit Provider Internal Medicine
DX: A41.9 Sepsis, unspecified organism (principal); I21.3 ST elevation (STEMI) myocardial infarction of unspecified site; R65.21 Severe sepsis with septic shock; I63.40 Cerebral infarction due to embolism of unspecified cerebral artery; T79.0XXA Air embolism (traumatic), initial encounter; I63.50 Cerebral infarction due to unspecified occlusion or stenosis of unspecified cerebral artery; G81.94 Hemiplegia, unspecified affecting left nondominant side; N13.6 Pyonephrosis; I48.92 Unspecified atrial flutter; I31.39 Other pericardial effusion (noninflammatory); J93.9 Pneumothorax, unspecified; N17.9 Acute kidney failure, unspecified; I49.5 Sick sinus syndrome; E03.9 Hypothyroidism, unspecified; E78.5 Hyperlipidemia, unspecified; I25.2 Old myocardial infarction; G93.89 Other specified disorders of brain; I12.9 Hypertensive chronic kidney disease with stage 1 through stage 4 chronic kidney disease, or unspecified chronic kidney disease; I46.9 Cardiac arrest, cause unspecified; I48.0 Paroxysmal atrial fibrillation; N18.30 Chronic kidney disease, stage 3 unspecified; R29.810 Facial weakness; D63.1 Anemia in chronic kidney disease; L08.9 Local infection of the skin and subcutaneous tissue, unspecified; Z95.0 Presence of cardiac pacemaker; Z66 Do not resuscitate; Z86.73 Personal history of transient ischemic attack (TIA), and cerebral infarction without residual deficits; R45.1 Restlessness and agitation; E83.51 Hypocalcemia; E87.6 Hypokalemia; R29.700 NIHSS score 0; Z95.2 Presence of prosthetic heart valve; Z51.5 Encounter for palliative care; Z78.1 Physical restraint status; Z79.01 Long term (current) use of anticoagulants; Z95.3 Presence of xenogenic heart valve; Z93.6 Other artificial openings of urinary tract status; X58.XXXA Exposure to other specified factors, initial encounter
CPT/HCPCS: 36415; 36600; 70450; 71045; 71275; 74177; 80053; 80061; 80202; 81001; 82803; 83036; 83605; 83735; 84145; 84439; 84443; 84484; 85014; 85018; 85025; 85610; 85730; 87040; 87077; 87081; 87086; 87186; 92526; 92610; 93005; 93306; 94640; 96365; 96366; 96367; 96374; 96375; 97162; 99291; 99292; A4649; A9270; C1729; J0131; J0283; J0613; J1643; J1644; J1940; J2250; J2270; J2405; J2543; J3010; J3370; J3371; J3372; J3480; J3490; J7030; J7050; Q9967